=== PATIENT | female | born 1940 ===

== ENCOUNTER → 2020-08-30 09:42 | Outpatient (BNVA) | payer MEDICARE, SELFPAY | PROVIDERS: PCP Internal Medicine; Referring Provider Internal Medicine; Visit Provider Surgery | DX: C34.11 Malignant neoplasm of upper lobe, right bronchus or lung (principal) | CPT/HCPCS: 99211 ==

== ENCOUNTER → 2020-09-02 08:42 | Outpatient (BNV) | payer MEDICARE, SELFPAY | PROVIDERS: PCP Internal Medicine; Visit Provider Internal Medicine | DX: C34.11 Malignant neoplasm of upper lobe, right bronchus or lung (principal) | CPT/HCPCS: 99212; 99213; 99214; G2211 ==

== ENCOUNTER 2020-09-27 14:01 | Inpatient (IN) | payer MEDICARE, SELFPAY ==
--- NOTE | 2020-09-27 10:48 | XR_ITS ---
EXAMINATION: XR CHEST CLINICAL INFORMATION: Malignant neoplasm right upper lobe COMPARISON: Previous chest x-ray most recent 08/09/[address] June 2020 TECHNIQUE: 2 views of the chest were obtained. FINDINGS: The cardiac silhouette does not appear enlarged. There are new postsurgical changes to the right hemithorax. There are surgical gary projecting over the right upper hilar region. There is a moderate to large right pneumothorax. This measures 6.7 cm in greatest thickness at the right lung apex. The lungs are clear. There is no pleural effusion. There are degenerative changes of the spine. XR/XR chest 2V IMPRESSION: New postsurgical changes to the right hemithorax. Moderate to large right pneumothorax measuring 6.7 cm at the right lung apex.
--- NOTE | 2020-09-27 14:13 | P.HPGS_ITS ---
History of Present Illness History of Present Illness Chief complaint: Pneumothorax Post Op Narrative: Elda Vogt is a 80 year old female former smoker, with a PMH of htn, seasonal allergies who underwent a robotic VATS right upper lobectomy and mediastinal lymphadenectomy by Dr. Oh on 09/17/[address] [facility] and was discharged from that facility on 09/19/2020. Ms. Vogt presented to [facility] outpatient thoracic surgical office today with Dr. Oh for her post op appointment and had a cxr performed which showed a small to moderate right apical pneumothorax and had complaints of increased sob. Pt was then directly admitted to the floor with plans to have an IR guided pigtail placed for her right pneumothorax. Review of Systems Review of Systems: Yes all other systems are reviewed and are negative [facility] Past Medical History Medical History History of pneumonia Hypertension Primary cancer of right upper lobe of lung Seasonal allergies Family History Family History Sister Liver transplant recipient Father Stroke Mother Diabetes mellitus Maternal Uncle Lung cancer Surgical History Surgical History H/O tubal ligation History of rectal surgery Social History Social History Household Members: None Housing: Apartment Do you presently have visiting nurse or other home services: No Smoking Status: Former smoker Use of substances other than those prescribed or required for medical reasons: No Have you been hit, kicked, punched, or otherwise hurt by someone within the past year? If so, by whom?: No Do you feel safe in your current relationship?: No Current Relationship Is there a partner from a previous relationship who is making you feel unsafe now?: No Are you made to feel afraid or neglected: No Advance Directives: Yes Advance Directives Information Provided: Yes Advance Directives on File: No Advance Directives Date on File: 09/02/20 Do you have thoughts of harming others: None Do you have a plan to hurt others: No Plan Recently lost weight without trying: Yes Meds Allergies Allergy/AdvReac Type Severity Reaction Status Date / Time amoxicillin [AMOXICILLIN] Allergy Unknown FELT SICK Verified 09/27/20 15:11 moxifloxacin [From AVELOX] Allergy Unknown UNKNOWN Verified 09/27/20 15:11 multiple medication Allergy Unknown Unknown Uncoded 08/30/20 09:51 sensitivit Home Medications Medication Instructions Recorded Confirmed Type amlodipine 10 mg tablet 10 mg PO DAILY 08/30/20 09/27/20 History atenolol 25 mg tablet 25 mg PO DAILY 08/30/20 09/02/20 History cetirizine 10 mg tablet 10 mg PO DAILY 08/30/20 09/27/20 History estradiol g VAGINAL 08/30/20 08/30/20 History polyethylene glycol 3350 17 17 g PO BID PRN 08/30/20 09/27/20 History gram/dose oral powder acetaminophen 325 mg tablet 650 mg PO Q6H 09/27/20 09/27/20 History albuterol sulfate 90 mcg/actuation 0 mcg INHALATION 09/27/20 History aerosol inhaler inhalational spacing device #1 ea 09/27/20 09/27/20 History oxycodone 5 mg tablet 2.5 mg PO Q4H PRN 09/27/20 09/27/20 History Physical Exam Const: Orientation/consciousness: patient oriented x3 HENMT: Head: Yes normal to inspection, Yes normocephalic and Yes atraumatic Eyes: General: appearance normal, both eyes and all related structures Sclerae: sclerae normal Neck: Other: No subcu air Neck: Yes trachea midline Chest: Other: Multiple right sided chest wall incisions remain intact with no sign of infection,erythema or drainage. No subcu air on palpation and breath sounds are clear bilat throughout all lung fermin Cardio: Jugular venous distension: no JVD Rate: regular rate Rhythm: regular rhythm Heart sounds: S1 normal heart sound present, S2 normal heart sound present, no gallops, no murmurs and no rubs GI: Inspection: Yes normal to inspection Palpation (GI): Soft to palpation Auscultation: normoactive bowel sounds Neuro: General: patient oriented x3 Extrem: General: Yes normal to inspection Assessment and Plan (1) Pneumothorax on right: Status: Acute Patient is a 80-year-old female former smoker who recently on 09/17/2020 underwent a robotic VATS right upper lobectomy and 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 Oh at [facility] and was discharged home to self-care on 09/19/2020. Patient presented to thoracic surgery outpatient office at [facility] today and was found to have a small to moderate right-sided pneumothorax. Plan for IR guided right-sided pigtail placement for pneumothorax. Chest tube to remain on -20 L WS. Patient should ambulate out of bed in the hallway a minimum of 3-4 times daily with nursing assistance. (Okay for for chest tube to be on waterseal during ambulation). All meals should be eaten OOB and in chair. Continue current pain analgesics. CXR ordered for tomorrow a.m.
--- NOTE | 2020-09-27 14:39 | CT_ITS ---
PROCEDURE: CT GUIDED INSERTION, PLEURAL TUNNEL CATHETER CLINICAL INFORMATION: Right pneumothorax COMPARISON: Previous chest x-ray from earlier the same day TECHNIQUE: Procedure and risks and benefits including bleeding, infection and inability to the right lung to reinflate discussed with the patient and informed consent was obtained. Axial images through the chest were performed. The right upper anterior chest was prepped and draped in usual sterile fashion. The skin and soft tissues were anesthetized with 1% lidocaine plain. Using CT guidance and a 5 Malaysian Yueh needle, access to the right pleural space was obtained. Over an 0135 guidewire and following serial dilatation, a 10 Malaysian pigtail chest tube was positioned. This was attached to a Pleur-evac. Patient received Versed 1 mg and fentanyl 50 mcg intravenously during the procedure. Total sedation time was 20 minutes. Patient dose 2 92 mgy/cm. This CT examination was performed using dose optimization techniques as appropriate, variously including the following: *Automated exposure control *Adjustment of mA and/or kV according to patient size (this includes techniques or standardized protocols for targeted exams where dose is matched to indication/reason for exam; i.e. extremities or head) *Use of iterative reconstruction technique DLP: 292 mGy-cm FINDINGS: Initial images demonstrate a moderate right apical pneumothorax. There is a small right pleural effusion. There are postsurgical changes from right upper lobe lobectomy with surgical clips seen in the right pulmonary hilum. Images following right chest tube patent and demonstrate slight interval decrease in the right pneumothorax. A small to moderate right apical pneumothorax remains post procedure. CT/CT chest tube placement IMPRESSION: 10.2 Malaysian right chest tube placement.
[2020-09-27 14:49] VITALS: BP 168/60; PULSE 65; RESP 18; TEMP 36.9; O2SAT 96
[2020-09-27 15:43] VITALS: BMI 24.6
[2020-09-27 15:56] LABS: Basophils Absolute Auto 0.1 X10*3/uL (0.0-0.2); Basophils Percent Auto 0.5 % (0-2); Eosinophils Absolute Auto 0.5 X10*3/uL (0.0-0.4); Hematocrit 39.6 % (37-47); Hemoglobin 13.1 g/dl (12.0-16.0); Imm Gran Abs Auto 0.09 X10*3/uL (0.00-0.03); Lymphocytes Absolute Auto 1.4 X10*3/uL (1.2-4.9); MANUAL DIFF FLAG NO; Mean Corpuscular HGB Conc 33.1 g/dl (31.0-35.0); Mean Corpuscular Hemoglobin 31.4 pg (27.0-33.0); Monocytes Absolute Auto 0.8 X10*3/uL (0.1-1.2); Monocytes Percent Auto 8.1 % (2-11); Neutrophils Absolute Auto 6.6 X10*3/uL (2.0-8.3); Neutrophils Percent Auto 70.4 % (45-73); Platelet Count 323 X10*3/uL (160-400); Red Blood Count 4.17 X10*6/uL (4.20-5.50); Red Cell Distribution Width 12.7 % (11.0-16.0); White Blood Count 9.4 X10*3/uL (4.8-10.8)
[2020-09-27] MEDS: Lidocaine HCl 1 % 20 ML VIAL 10 ML SUBCUT (16:58)
[2020-09-27 17:20] VITALS: BP 115/52; PULSE 60; RESP 16; TEMP 36.8; O2SAT 94
[2020-09-27 17:25] VITALS: BP 115/62; PULSE 62
[2020-09-27] MEDS: amLODIPine Besylate 10 MG TABLET PO (17:25)
[2020-09-27] MEDS: 0.9 % Sodium Chloride Flush 3 ML SYRINGE IVFLUSH (17:25)
[2020-09-27] MEDS: Heparin Sodium,Porcine 5,000 UNIT/ML VIAL 5000 UNIT SUBCUT (17:26)
[2020-09-27 17:30] VITALS: BP 142/76; PULSE 61; RESP 16; TEMP 36.4; O2SAT 94
[2020-09-27] MEDS: oxyCODONE HCl Immed Release 5 MG TABLET 2.5 MG PO (17:36)
[2020-09-27 18:32] LABS: Anion Gap 18 (12-20); Blood Urea Nitrogen 11 mg/dL (9-16); Calcium 8.8 mg/dL (8.4-10.2); Carbon Dioxide 22 mmol/L (22-29); Chloride 103 mmol/L (96-108); Creatinine Clr Calc Pharmacy 57.4; Estimated Glomerular Filt Rate > 60; Glucose Random 106 mg/dL (60-115); Potassium 4.5 mmol/l (3.3-5.1); Sodium 138 mmol/L (135-145)
[2020-09-27] MEDS: Acetaminophen 325 MG TABLET 650 MG PO (18:48)
[2020-09-27 19:05] VITALS: BP 165/71; PULSE 61; RESP 20; O2SAT 93
[2020-09-27] MEDS: Sennosides 8.6 MG TABLET 17.2 MG PO (21:08)
[2020-09-27 23:51] VITALS: BP 169/61; PULSE 61; RESP 18; TEMP 36.8; O2SAT 93
[2020-09-28] VITALS (7 sets, daily range): BP systolic 141–159; BP diastolic 54–68; PULSE 57–74; RESP 18–20; TEMP 36.7–37.2; O2SAT 93–96
[2020-09-28] MEDS: 0.9 % Sodium Chloride Flush 3 ML SYRINGE IVFLUSH ×4 (00:30→23:39)
[2020-09-28] MEDS: Acetaminophen 325 MG TABLET 650 MG PO ×3 (03:11→20:44)
[2020-09-28] MEDS: Heparin Sodium,Porcine 5,000 UNIT/ML VIAL 5000 UNIT SUBCUT ×2 (03:12→14:52)
--- NOTE | 2020-09-28 05:00 | XR_ITS ---
EXAMINATION: XR CHEST CLINICAL INFORMATION: Right pneumothorax with chest tube COMPARISON: 09/27/2020 TECHNIQUE: Frontal view of the chest was obtained. FINDINGS: Right-sided pigtail catheter chest tube in place. Suture line seen in the right perihilar region. Cardiac leads overlie the chest. The lungs are well expanded. Reexpansion of the right-sided pneumothorax. Suspect a trace residual right pneumothorax. Small right pleural effusion. No consolidation. The cardiomediastinal silhouette is unchanged, with a calcified aorta. XR/XR chest 1V IMPRESSION: Right-sided pigtail catheter in place with trace residual pneumothorax suspected. Small right pleural effusion.
[2020-09-28 05:07] LABS: MANUAL DIFF FLAG NO
[2020-09-28 05:08] LABS: Basophils Percent Auto 0.5 % (0-2); Eosinophils Absolute Auto 0.5 X10*3/uL (0.0-0.4); Eosinophils Percent Auto 5.6 % (0-4); Hematocrit 33.6 % (37-47); Hemoglobin 11.5 g/dl (12.0-16.0); Imm Gran Abs Auto 0.05 X10*3/uL (0.00-0.03); Imm Gran Pct Auto 0.6 % (0.0-0.4); Lymphocytes Absolute Auto 1.2 X10*3/uL (1.2-4.9); Lymphocytes Percent Auto 14.7 % (20-40); Mean Corpuscular HGB Conc 34.2 g/dl (31.0-35.0); Mean Corpuscular Volume 93.6 fL (80-98); Mean Platelet Volume 9.1 fL (9.4-12.3); Monocytes Absolute Auto 0.8 X10*3/uL (0.1-1.2); Monocytes Percent Auto 9.3 % (2-11); Neutrophils Absolute Auto 5.8 X10*3/uL (2.0-8.3); Neutrophils Percent Auto 69.3 % (45-73); Platelet Count 284 X10*3/uL (160-400); Red Blood Count 3.59 X10*6/uL (4.20-5.50); Red Cell Distribution Width 12.5 % (11.0-16.0); White Blood Count 8.4 X10*3/uL (4.8-10.8)
[2020-09-28 05:35] LABS: Anion Gap 12 (12-20); Blood Urea Nitrogen 12 mg/dL (9-16); Calcium 8.2 mg/dL (8.4-10.2); Carbon Dioxide 25 mmol/L (22-29); Chloride 100 mmol/L (96-108); Creatinine Clr Calc Pharmacy 57.4; Estimated Glomerular Filt Rate > 60; Glucose Random 114 mg/dL (60-115); Magnesium 2.1 mg/dL (1.6-2.6); Phosphorus 3.3 mg/dL (2.7-4.5); Sodium 133 mmol/L (135-145)
[2020-09-28] MEDS: oxyCODONE HCl Immed Release 5 MG TABLET 2.5 MG PO ×2 (08:07→22:28)
[2020-09-28] MEDS: polyethylene glycoL 3350 17 GM POWD.PACK PO ×2 (08:18→20:45)
[2020-09-28] MEDS: Loratadine 10 MG TABLET PO (08:18)
--- NOTE | 2020-09-28 11:35 | MHC.CM.PN ---
[employer]PER[employer]OR [employer]CTION COMPLETED WITH PT WHO REPORTS SHE LIVES ALONE AND IS INDEPENDENT WITH CARE AND MOBILITY. PT REPORTS SHE WAS AT THE [facility] RECENTLY AND HAD A VNA COMING TO HER HOME HOWEVER THEY WERE SUPPOSED TO COME FOR A SECOND VISIT LAST WEDNESDAY AND DID NOT SHOW UP. PT DOES NOT KNOW THE NAME OF THE AGENCY. PT REPORTS SHE GOES TO THE [facility] BUT DOES NOT KNOW THE NAME OF HER PCP. PT STATES SHE COMPLETED A NEW HCP WHILE AT THE [facility] AND DID GIVE A COPY TO HER PCP. PER PT, THE PREVIOUS HCP NAMED HER SON HOWEVER HE LAST WEEK. PT REPORTS HE DAUGHTER IN LAW HAS BEEN TAKING HER TO HER APPTS BECAUSE SHE HAS BEEN ON OXYCODONE AND UNABLE TO DRIVE, SHE WILL ALSO PROVIDE PTS TRANSPORTATION AT DISCHARGE. IMM DELIVERED AND CURRENT DC PLAN IS HOME WITH VNA. PT DOES NOT KNOW WHICH VNA SHE HAD REFINED [facility] OPERATOR, CM WILL ATTEMPT TO FIND OUT HOWEVER PT UNSURE IF SHE WANTS TO CONTINUE WITH THE SAME AGENCY. A LIST WILL BE PROVIDED AND REFERRALS WILL BE MADE BASED ON PTS IDENTIFIED PREFERENCES.
--- NOTE | 2020-09-28 14:13 | PM.PNTS ---
Subjective Subjective Patient reports: no new complaints, tolerating liquids well, tolerating a regular diet and voiding w/o difficulty Interval history: Pt had her right sided pigtail placed by IR yesterday with near resolution of R pneumothorax. Pt states that her breathing has improved since CT insertion. Has been using IS regularly and reaching 500. Has not ambulated in hallway as of yet. Spoke with nursing and emphasized the need to begin ambulation in hallway 3-4 x per day. Also instruction to begin recording chest tube outputs every shift. Pt states that her pain has been well controlled on current analgesics. appetite remains good with proper fluid intake. All other systems reviewed and negative. Physical Exam Vital Signs: Vital Signs: Vital Signs Temp Pulse Resp BP Pulse Ox 09/28/20 11:51 98.0 F 74 18 141/59 H 95 09/28/20 08:00 98.1 F 57 18 148/54 H 93 09/28/20 03:43 98.4 F 62 20 156/64 H 94 09/27/20 23:51 98.3 F 61 18 169/61 H 93 09/27/20 19:05 61 20 165/71 H 93 09/27/20 17:30 97.5 F 61 16 142/76 H 94 09/27/20 17:25 62 115/62 09/27/20 17:20 98.3 F 60 16 115/52 L 94 09/27/20 14:49 98.5 F 65 18 168/60 H 96 Body Mass Index 24.6 Const: General: no acute distress Orientation/consciousness: patient oriented x3 HENMT: Head: Yes normal to inspection Eyes: General: appearance normal, both eyes and all related structures Sclerae: sclerae normal Neck: Other: No crepitis Neck: Yes normal visual inspection, Yes trachea midline and Yes supple Chest: Other: right anterior pigtail catheter remains in place with dressing CDI, 180 cc of serous sanguineous out put over night, no air leak detected, on -20 LWS. BS CTA no wheezes or rhonchi. Surgical incision remain intact with no erythema, edema or drainage Resp: Effort & Inspection: normal respiratory effort and able to speak in complete sentences Cardio: Jugular venous distension: no JVD Rate: regular rate Rhythm: regular rhythm Heart sounds: S1 normal heart sound present, S2 normal heart sound present, no gallops, no murmurs and no rubs GI: Inspection: Yes normal to inspection Auscultation: normal bowel sounds Neuro: General: patient oriented x3 Extrem: General: Yes normal to inspection Progress Note: A&P Assessment and plan (1) Pneumothorax on right: Status: Acute Assessment and Plan: Pneumothorax on right: Status: Acute Patient is a 80-year-old female former smoker who recently on 09/17/2020 underwent a robotic VATS right upper lobectomy and 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 Oh at [facility] and was discharged home to self-care on 09/19/2020. Patient presented to thoracic surgery outpatient office at [facility] on 09/27 and was found to have a small to moderate right-sided pneumothorax S/P right CT guided pigtail catheter on 09/27/2020. Pt should ambulate in hallway with assistance minimum 4 x per day. Chest tube to remain on -20 L WS. CXR obtained this morning shows near complete resolution of R pneumothorax which I personally reviewed and agree with radiologist findings. Patient should ambulate out of bed in the hallway a minimum of 3-4 times daily with nursing assistance. (Okay for for chest tube to be on waterseal during ambulation). All meals should be eaten OOB and in chair. Continue current pain analgesics. CXR ordered for tomorrow a.m. Fall Risk Details Current Medications: Current Medications Generic Name Dose Route Start Last Admin Trade Name Freq PRN Reason Stop Dose Admin Acetaminophen 650 mg 09/27/20 14:39 09/28/20 03:11 Acetaminophen 325 Mg Tablet PO 650 mg Q6H PRN Administration Pain and Fever Amlodipine Besylate 10 mg 09/28/20 14:00 Amlodipine Besylate 10 Mg Tablet PO DAILY@1400 [facility] Protocol Heparin Sodium (Porcine) 5,000 unit 09/27/20 14:39 09/28/20 03:12 Heparin Sodium,Porcine 5,000 Unit/Ml Vial SUBCUT 5,000 unit Q12H MONSERRAT Administration Loratadine 10 mg 09/28/20 09:00 09/28/20 08:18 Loratadine 10 Mg Tablet PO 10 mg DAILY MONSERRAT Administration Oxycodone HCl 2.5 mg 09/27/20 15:28 09/28/20 08:07 Oxycodone Hcl Immed Release 5 Mg Tablet PO 2.5 mg Q4H PRN Administration Pain, Moderate (Pain Scale 4-6 Oxycodone HCl 5 mg 09/27/20 15:28 Oxycodone Hcl Immed Release 5 Mg Tablet PO Q4H PRN Pain, Severe (Pain Scale 7-10) Polyethylene Glycol 17 gm 09/27/20 15:47 09/28/20 08:18 Polyethylene Glycol 3350 17 Gm Powd.Pack PO 17 gm BID PRN Administration constipation Senna 17.2 mg 09/27/20 21:00 09/27/20 21:08 Sennosides 8.6 Mg Tablet PO 17.2 mg BEDTIME MONSERRAT Administration Sodium Chloride 3 ml 09/27/20 16:00 09/28/20 08:08 0.9 % Sodium Chloride Flush 3 Ml Syringe IVFLUSH 3 ml QSHIFT MONSERRAT Administration Time Spent With Patient Time: Total time spent is greater than 50% in coordination of care (as documented) at patient's floor/unit and/or counseling patient: Time with patient: 15 - 24 minutes
[2020-09-28] MEDS: amLODIPine Besylate 10 MG TABLET PO (14:52)
[2020-09-29] VITALS (7 sets, daily range): BP systolic 140–176; BP diastolic 60–79; PULSE 53–77; RESP 18; TEMP 36.1–37.1; O2SAT 92–95
--- NOTE | 2020-09-29 | XR_ITS ---
EXAMINATION: XR CHEST CLINICAL INFORMATION: Right-sided pneumothorax with chest tube COMPARISON: 09/28/2020 TECHNIQUE: Portable AP upright view of the chest was obtained. FINDINGS: Right pigtail catheter overlies the right apex. Chain staple lines are seen in the right hilar and upper lung region. A pneumothorax is not visualized at this time. There are trace bilateral pleural effusions seen with mild tenting of the right hemidiaphragm. The heart is not enlarged. XR/XR chest 1V IMPRESSION: No change in the right pigtail catheter. The right-sided pneumothorax is no longer visible. The lungs are otherwise clear with small bilateral pleural effusions.
[2020-09-29] MEDS: Heparin Sodium,Porcine 5,000 UNIT/ML VIAL 5000 UNIT SUBCUT ×2 (02:14→14:27)
[2020-09-29] MEDS: Acetaminophen 325 MG TABLET 650 MG PO ×3 (06:40→23:42)
[2020-09-29] MEDS: Loratadine 10 MG TABLET PO (07:47)
[2020-09-29] MEDS: 0.9 % Sodium Chloride Flush 3 ML SYRINGE IVFLUSH ×3 (07:47→21:20)
[2020-09-29] MEDS: polyethylene glycoL 3350 17 GM POWD.PACK PO (07:52)
--- NOTE | 2020-09-29 14:07 | P.PNTS_ITS ---
Subjective Subjective Interval history: patients overnight was uneventful, right sided chest tube remains on -20 LWS, has been ambulating in hallway with nursing assistance, 750 with IS, no sob, cough , hemptysis or wheezing. Appetite remains good with no issues voiding and regular BM. Denies F/C, N/V, weakness or pain. All of ROS neg Physical Exam Vital Signs: Vital Signs: Vital Signs Temp Pulse Resp BP Pulse Ox 09/29/20 13:46 70 152/60 H 09/29/20 11:50 98.0 F 64 18 171/63 H 94 09/29/20 08:00 97.0 F 63 18 176/79 H 94 09/29/20 04:00 98.6 F 53 18 156/74 H 94 09/28/20 22:56 98.9 F 57 18 148/58 H 93 09/28/20 19:46 98.5 F 66 18 151/55 H 95 09/28/20 15:51 98.9 F 62 18 159/56 H 96 Body Mass Index 24.6 Const: General: comfortable and no acute distress Orientation/consciousness: patient oriented x3 HENMT: Head: Yes normal to inspection and Yes normocephalic Eyes: General: appearance normal, both eyes and all related structures Sclerae: sclerae normal Neck: Other: No subcu air Neck: Yes normal visual inspection and Yes trachea midline Chest: Other: Right sided pigtail catheter remains in place and secure with dressing CDI anterior chest wall with no sign of subc emphysema, BS CTA bilat, no wheezes or rhonchi, chest tube remains on -20 LWS with minimal serous sanguineous fluid output over night, still has 180 cc total, no air leak noted, surgical incision healing well with no dihisence, erythem or edema. Cardio: Jugular venous distension: no JVD Rhythm: regular rhythm and abnormal rhythm Heart sounds: S1 normal heart sound present, S2 normal heart sound present, no gallops, no murmurs and no rubs GI: Inspection: Yes normal to inspection Auscultation: normal bowel sounds Neuro: General: patient oriented x3 Extrem: General: Yes normal to inspection, Yes capillary refill normal and Yes no clubbing, cyanosis or edema Right upper extremity: normal to inspection Left upper extremity: normal to inspection Right lower extremity: normal to inspection Left lower extremity: normal to inspection Progress Note: A&P Assessment and plan (1) Pneumothorax on right: Status: Acute Assessment and Plan: Pneumothorax on right: Status: Acute Patient is a 80-year-old female former smoker who recently on 09/17/2020 underwent a robotic VATS right upper lobectomy and 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 Oh at [facility] and was discharged home to self-care on 09/19/2020. [facility] on 09/27 and was found to have a small to moderate right-sided pneumothorax S/P right CT guided pigtail catheter on 09/27/2020. Pt should ambulate in hallway with assistance minimum 4 x per day. Chest tube to remain on -20 L WS. CXR obtained this morning shows complete resolution of R pneumothorax which I personally reviewed and agree with radiologist findings. Patient should ambulate out of bed in the hallway a minimum of 3-4 times daily with nursing assistance. (Okay for for chest tube to be on waterseal during ambulation). All meals should be eaten OOB and in chair. Continue current pain analgesics. CXR ordered for tomorrow a.m. Fall Risk Details Current Medications: Current Medications Generic Name Dose Route Start Last Admin Trade Name Freq PRN Reason Stop Dose Admin Acetaminophen 650 mg 09/27/20 14:39 09/29/20 06:40 Acetaminophen 325 Mg Tablet PO 650 mg Q6H PRN Administration Pain and Fever Amlodipine Besylate 10 mg 09/28/20 14:00 09/28/20 14:52 Amlodipine Besylate 10 Mg Tablet PO 10 mg DAILY@1400 MONSERRAT Administration Protocol Heparin Sodium (Porcine) 5,000 unit 09/27/20 14:39 09/29/20 02:14 Heparin Sodium,Porcine 5,000 Unit/Ml Vial SUBCUT 5,000 unit Q12H MONSERRAT Administration Loratadine 10 mg 09/28/20 09:00 09/29/20 07:47 Loratadine 10 Mg Tablet PO 10 mg DAILY MONSERRAT Administration Oxycodone HCl 2.5 mg 09/27/20 15:28 09/28/20 22:28 Oxycodone Hcl Immed Release 5 Mg Tablet PO 2.5 mg Q4H PRN Administration Pain, Moderate (Pain Scale 4-6 Oxycodone HCl 5 mg 09/27/20 15:28 Oxycodone Hcl Immed Release 5 Mg Tablet PO Q4H PRN Pain, Severe (Pain Scale 7-10) Polyethylene Glycol 17 gm 09/27/20 15:47 09/29/20 07:52 Polyethylene Glycol 3350 17 Gm Powd.Pack PO 17 gm BID PRN Administration constipation Senna 17.2 mg 09/27/20 21:00 09/28/20 20:47 Sennosides 8.6 Mg Tablet PO Not Given BEDTIME MONSERRAT Sodium Chloride 3 ml 09/27/20 16:00 09/29/20 07:47 0.9 % Sodium Chloride Flush 3 Ml Syringe IVFLUSH 3 ml QSHIFT MONSERRAT Administration Time Spent With Patient Time: Total time spent is greater than 50% in coordination of care (as documented) at patient's floor/unit and/or counseling patient: Time with patient: 15 - 24 minutes
[2020-09-29] MEDS: amLODIPine Besylate 10 MG TABLET PO (14:28)
--- NOTE | 2020-09-29 16:37 | MHC.CM.PN ---
CM CONTACTED [facility] AND CONFIRMED THIS IS THE AGENCY PT WAS ACTIVE WITH [employer]. CM MET WITH PT AGAIN TO DISCUSS HER PREFERENCE. AFTER SOME DISCUSSION PT REPORTED SHE WOULD LIKE TO CONTINUE WITH THE SAME AGENCY BUT REQUESTS THAT THEY TELL HER WHAT DAY THEY WILL BE COMING SO SHE IS PREPARED. CURRENT DC PLAN IS HOME [facility] RESUMPTION OF [facility] VNA
[2020-09-30] VITALS (9 sets, daily range): BP systolic 134–163; BP diastolic 45–76; PULSE 58–78; RESP 16–20; TEMP 36.4–36.9; O2SAT 91–94
[2020-09-30] MEDS: oxyCODONE HCl Immed Release 5 MG TABLET 2.5 MG PO ×2 (03:14→19:32)
[2020-09-30] MEDS: Heparin Sodium,Porcine 5,000 UNIT/ML VIAL 5000 UNIT SUBCUT ×2 (03:15→13:35)
--- NOTE | 2020-09-30 05:00 | XR_ITS ---
EXAMINATION: XR CHEST CLINICAL INFORMATION: Right pneumothorax with chest tube COMPARISON: 09/29/2020 TECHNIQUE: Frontal view of the chest was obtained. FINDINGS: Right-sided chest tube remains in place. Suture line at the right suprahilar region. Cardiac leads overlie the chest. Tenting of the right hemidiaphragm again noted. The lungs are well expanded. No consolidation, edema, or effusion. There is no pneumothorax visualized. The cardiomediastinal silhouette is unchanged, with a calcified aorta. XR/XR chest 1V IMPRESSION: Right-sided chest tube remains in place. There is no pneumothorax visualized.
[2020-09-30] MEDS: Acetaminophen 325 MG TABLET 650 MG PO ×3 (07:52→23:47)
[2020-09-30] MEDS: Loratadine 10 MG TABLET PO (07:53)
[2020-09-30] MEDS: 0.9 % Sodium Chloride Flush 3 ML SYRINGE IVFLUSH ×3 (10:15→23:49)
[2020-09-30] MEDS: polyethylene glycoL 3350 17 GM POWD.PACK PO (10:17)
--- NOTE | 2020-09-30 12:30 | MHC.CM.PN ---
per multi dis rounds dc date not determined at this time dc plan remanins home with resumption of anthony vna
[2020-09-30] MEDS: amLODIPine Besylate 10 MG TABLET PO (13:39)
--- NOTE | 2020-09-30 16:04 | P.PNTS_ITS ---
Subjective Subjective Interval history: Patient seen and examined this evening. Doing well overall. Using I/S as instructed and ambulating in room. Chest tube remains to -20cm continuous LWS. Reports chest discomfort to right chest at site of chest tube. Otherwise, doing well overall. Physical Exam Vital Signs: Vital Signs: Vital Signs Temp Pulse Resp BP Pulse Ox 09/30/20 15:19 98.0 F 66 18 143/73 H 93 09/30/20 14:35 16 09/30/20 13:39 78 144/54 H 09/30/20 12:00 98.3 F 78 20 144/54 H 94 09/30/20 07:58 98.1 F 64 20 156/63 H 92 09/30/20 03:05 97.6 F 61 18 163/76 H 92 09/30/20 00:00 98.5 F 62 18 154/51 H 92 09/29/20 20:04 98.7 F 66 18 140/60 H 92 Body Mass Index 24.6 Const: General: cooperative, healthy appearing, comfortable and no acute distress Nutritional Appearance: well nourished Orientation/consciousness: oriented to person, oriented to place, oriented to time and patient oriented x3 Limitations: no limitations HENMT: Head: Yes normal to inspection, Yes normocephalic and Yes atraumatic Mouth: Normal oral and palatal mucosa present Eyes: Visual Fermin: normal visual fermin by confrontation Alignment and Position: alignment normal Periorbital: periorbital findings normal Conjunctivae: conjunctivae normal Sclerae: sclerae normal Pupils: Equal, round and reactive pupils present and Pupil accommodation reflex normal EOM: EOMs intact bilaterally Neck: Neck: Yes normal visual inspection, Yes full ROM, Yes no lymphadenopathy, Yes trachea midline, Yes supple, No lymphadenopathy, No tender and No tracheal deviation Lymphatic: no lymphadenopathy noted Chest: Chest palpation & inspection: normal inspection of the chest and no crepitus Resp: Other: Chest tube to -20cm continuous LWS. 300cc of serousanguinous drainage in atrium. No visible air leak. Chest tube dressing is C/D/I. tubing kinked, nursing will re-inforce with tape to ensure chest tube draining properly. Multiple surgical chest wall incisions healing well without erythema, edema, or drainage. Effort & Inspection: normal respiratory effort, able to speak in complete sentences, normal respiratory pattern, no audible wheezes, no cough, no pursed lip breathing, no respiratory distress, no stridor, not tachypneic, no tracheal deviation and other Auscultation: clear to auscultation bilaterally Cardio: Jugular venous distension: no JVD Palpation: normal PMI Rate: regular rate Rhythm: regular rhythm Heart sounds: S1 normal heart sound present, S2 normal heart sound present, no click, no gallops, no murmurs and no rubs GI: Inspection: Yes normal to inspection Auscultation: normal bowel sounds : General: Yes no CVA tenderness Back/Spine/Pelvis: Back: no CVA tenderness Thoracic/Lumbar Spine: thoracic and lumbar spine normal to inspection Skin: General skin exam: no rashes or lesions noted and dry skin Lesions: no lesions Rashes: no rashes Neuro: General: oriented to person, oriented to place, oriented to time, patient oriented x3 and gait normal Cranial nerves: Yes Equal, round and reactive pupils present Extrem: General: Yes normal to inspection, Yes full ROM, Yes capillary refill normal, Yes no clubbing, cyanosis or edema, Yes no pedal edema and Yes normal gait Psych: Appearance: grossly normal and well kempt Mental Status: mental sta tus grossly normal Speech and movement: Normal speech and movement present and Clear speech present Affect: normal affect Attitude: cooperative Thought process: Normal thought process present Thought content: Normal thought content present Progress Note: A&P Assessment and plan (1) Pneumothorax on right: Status: Acute Assessment and Plan: Patient is a 80-year-old female former smoker who is s/p robotic VATS RUL 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 Oh. * IR pigtail chest tube placed on 09/27/2020 following findings of right-sided pneumothorax * Pt should ambulate in hallway with assistance minimum 4 x per day. OOB in recliner chair with all meals. * Keep chest tube to -20cm continuous LWS and place to [facility] at midnight 10/01/2020 0000. * CXR obtained this morning shows: Right-sided chest tube remains in place. There is no pneumothorax visualized. * No air leak on exam. * Patient should ambulate out of bed in the hallway a minimum of 3-4 times daily with nursing assistance. (Okay for for chest tube to be on waterseal during ambulation). * Continue current pain analgesics. * CXR ordered for tomorrow a.m. If CXR looks good following waterseal at midnight, will most likely remove and d/c tomorrow. * DVT prophylaxis: Heparin SQ Fall Risk Details Current Medications: Current Medications Generic Name Dose Route Start Last Admin Trade Name Freq PRN Reason Stop Dose Admin Acetaminophen 650 mg 09/27/20 14:39 09/30/20 13:38 Acetaminophen 325 Mg Tablet PO 650 mg Q6H PRN Administration Pain and Fever Amlodipine Besylate 10 mg 09/28/20 14:00 09/30/20 13:39 Amlodipine Besylate 10 Mg Tablet PO 10 mg DAILY@1400 MONSERRAT Administration Protocol Heparin Sodium (Porcine) 5,000 unit 09/27/20 14:39 09/30/20 13:35 Heparin Sodium,Porcine 5,000 Unit/Ml Vial SUBCUT 5,000 unit Q12H MONSERRAT Administration Loratadine 10 mg 09/28/20 09:00 09/30/20 07:53 Loratadine 10 Mg Tablet PO 10 mg DAILY MONSERRAT Administration Oxycodone HCl 2.5 mg 09/27/20 15:28 09/30/20 03:14 Oxycodone Hcl Immed Release 5 Mg Tablet PO 2.5 mg Q4H PRN Administration Pain, Moderate (Pain Scale 4-6 Oxycodone HCl 5 mg 09/27/20 15:28 Oxycodone Hcl Immed Release 5 Mg Tablet PO Q4H PRN Pain, Severe (Pain Scale 7-10) Polyethylene Glycol 17 gm 09/27/20 15:47 09/30/20 10:17 Polyethylene Glycol 3350 17 Gm Powd.Pack PO 17 gm BID PRN Administration constipation Senna 17.2 mg 09/27/20 21:00 09/29/20 21:20 Sennosides 8.6 Mg Tablet PO Not Given BEDTIME MONSERRAT Sodium Chloride 3 ml 09/27/20 16:00 09/30/20 13:35 0.9 % Sodium Chloride Flush 3 Ml Syringe IVFLUSH 3 ml QSHIFT MONSERRAT Administration Time Spent With Patient Time: Total time spent is greater than 50% in coordination of care (as documented) at patient's floor/unit and/or counseling patient: Time with patient: 15 - 24 minutes
[2020-10-01 03:54] VITALS: BP 152/52; RESP 18; TEMP 36.8; O2SAT 95
[2020-10-01] MEDS: Heparin Sodium,Porcine 5,000 UNIT/ML VIAL 5000 UNIT SUBCUT ×2 (03:57→13:01)
--- NOTE | 2020-10-01 06:00 | XR_ITS ---
EXAMINATION: XR CHEST CLINICAL INFORMATION: Right-sided pneumothorax. Status post chest tube placement. COMPARISON: Most recent chest radiograph dated 09/30/2020. TECHNIQUE: Frontal view of the chest was obtained. FINDINGS: Redemonstration of a right chest pigtail catheter with its tip in the region of the upper lobe. No significant change in positioning. No new or increasing pneumothorax. Trace right-sided pleural effusion, unchanged. Tenting of the right hemidiaphragm is unchanged. No new airspace consolidation. Stable cardiomediastinal silhouette. XR/XR chest 1V IMPRESSION: Stable right-sided chest tube and trace right-sided pleural effusion. No pneumothorax.
[2020-10-01] MEDS: Acetaminophen 325 MG TABLET 650 MG PO ×2 (06:19→13:01)
[2020-10-01 07:43] VITALS: RESP 18
[2020-10-01 07:49] VITALS: BP 157/59; PULSE 68; RESP 18; TEMP 36.7; O2SAT 96
[2020-10-01] MEDS: 0.9 % Sodium Chloride Flush 3 ML SYRINGE IVFLUSH ×2 (07:53→13:02)
[2020-10-01] MEDS: Loratadine 10 MG TABLET PO (07:54)
[2020-10-01] MEDS: polyethylene glycoL 3350 17 GM POWD.PACK PO (09:31)
[2020-10-01 11:32] VITALS: BP 165/59; PULSE 70; RESP 18; TEMP 36.6; O2SAT 98
[2020-10-01 13:01] VITALS: BP 165/59; PULSE 70
[2020-10-01] MEDS: amLODIPine Besylate 10 MG TABLET PO (13:01)
--- NOTE | 2020-10-01 13:30 | XR_ITS ---
EXAMINATION: XR CHEST CLINICAL INFORMATION: Right pneumothorax post pigtail chest tube placement COMPARISON: Previous chest x-rays most recent from earlier the same day TECHNIQUE: Frontal view of the chest was obtained. FINDINGS: The cardiac and mediastinal contours are stable. There are postsurgical changes to the right hemithorax with surgical clips in the right suprahilar region and elevation of the right hemidiaphragm. There is a right pigtail chest tube projecting over the right upper chest. There is no pneumothorax. There is blunting at the right lateral costophrenic angle questionable for small right pleural effusion. The lungs are clear. There is no left pleural effusion. There are degenerative changes of the spine. XR/XR chest 1V IMPRESSION: Stable postsurgical change to the right hemithorax. Stable position of right pigtail chest tube. No pneumothorax. Probable small right pleural effusion.
[2020-10-01 15:21] VITALS: BP 129/58; PULSE 67; RESP 18; TEMP 36.6; O2SAT 97
--- NOTE | 2020-10-01 17:41 | P.DS_ITS ---
DS: Providers Provider Date of admission: 09/27/20 14:01 Primary care physician: Douglas Swift MD Attending physician on admission: Sheila Oh Attending physician on discharge: Sheila Oh Anticipated date of discharge: 10/01/20 DS: Diagnosis Discharge Diagnosis (1) Pneumothorax on right: Status: Resolved DS: Summary Hospital Course Hospital Course: Per admission H&P: Elda Vogt is a 80 year old female former smoker, with a PMH of htn, seasonal allergies who underwent a robotic VATS right upper lobectomy and mediastinal lymphadenectomy by Dr. Oh on 09/17/2020 at [facility] and was discharged from that facility on 09/19/2020. Ms. Vogt presented to [facility] outpatient thoracic surgical office today with Dr. Oh for her post op appointment and had a cxr performed which showed a small to moderate right apical pneumothorax and had complaints of increased sob. Pt was then directly admitted to the floor with plans to have an IR guided pigtail placed for her right pneumothorax. Ms. Vogt was admitted to the Thoracic Surgery service and an IR guided pigtail was placed for the right pneumothorax on 09/27/2020. The patient's chest tube was gradually changed from wall suction to water seal to eventually a clamping trial on date of discharge. Patient had no increased SQ emphysema, pneumothorax, or respiratory compromise during clamping trial, therefore right sided chest tube was removed. This was done without difficulty and an occlusive dressing was placed over the site. The patient has otherwise had an uneventful hospital stay. She has been tolerating an oral diet, voiding, ambulating, pain controlled. She has been hemodynamically stable. After discussion with Dr. Oh it is deemed appropriate for the patient to be discharged home with VNA. Time Spent with Patient Time attestation: Total time spent providing and/or coordinating discharge services: Time spent: Less than 30 minutes Physical Exam Vital Signs: Vital Signs: Vital Signs Temp Pulse Resp BP Pulse Ox 10/01/20 15:21 97.9 F 67 18 129/58 L 97 10/01/20 13:01 70 165/59 H 10/01/20 11:32 97.9 F 70 18 165/59 H 98 10/01/20 07:49 98.0 F 68 18 157/59 H 96 10/01/20 07:43 18 10/01/20 03:54 98.2 F 18 152/52 H 95 09/30/20 23:35 97.9 F 58 18 134/45 L 91 L 09/30/20 19:09 98.5 F 68 18 147/52 H 92 Body Mass Index 24.6 General: No acute distress, resting comfortably in bed, well developed Head: Normocephalic, atraumatic, symmetric Eyes: Sclera anicteric, eyelids *without edema or erythema, +EOMS intact ENT: Oral mucosa and tongue are moist without lesions or exudates Neck: Soft, supple, symmetric, trachea midline, no crepitus Cardiovascular: Regular rate and rhythm, no murmur/rubs/gallops, BUE and BLE without edema, no calf tenderness bilaterally Respiratory: Lungs CTA B, breathing nonlabored, speaking in full sentences, on room air. No use of accessory muscles. Multiple right sided chest incisions are C/D/I, healing well, without erythema/drainage/open areas, no crepitus. Right anterior chest tube removed, occlusive dressing in place, C/D/I. Gastrointestinal: Soft, non-tender, non-distended, +normoactive bowel sounds. Lymphatic: no cervical, supraclavicular, infraclavicular lymphadenopathy noted Neurological: Alert and oriented x 3, no focal neurological deficit noted Psychiatric: Alert and oriented x 3, no agitation, appropriate affect DS: Data Imaging Chest x-ray: Radiologist's impression: XRay Report Signed Patient: Sravanthi Vogt#: [id number] : 2Acct:[id number] Age/Sex: 80 / FADM Date: 09/27/20 Loc: .[id number]: Sheila Oh MD Ordering Physician: JULIAN YEAGER NP Date of Service: 10/01/20 Procedure(s): XR chest 1V Accession Number(s): [id number] cc: JULIAN YEAGER NP~ EXAMINATION: XR CHEST CLINICAL INFORMATION: Right pneumothorax post pigtail chest tube placement COMPARISON: Previous chest x-rays most recent from earlier the same day TECHNIQUE: Frontal view of the chest was obtained. FINDINGS: The cardiac and mediastinal contours are stable. There are postsurgical changes to the right hemithorax with surgical clips in the right suprahilar region and elevation of the right hemidiaphragm. There is a right pigtail chest tube projecting over the right upper chest. There is no pneumothorax. There is blunting at the right lateral costophrenic angle questionable for small right pleural effusion. The lungs are clear. There is no left pleural effusion. There are degenerative changes of the spine. XR/XR chest 1V IMPRESSION: Stable postsurgical change to the right hemithorax. Stable position of right pigtail chest tube. No pneumothorax. Probable small right pleural effusion. Discharge Plan Discharge Anticipated Discharge Date/Time: 10/01/20 17:34 Patient Disposition: Home Health Service Referrals: Douglas Swift MD [Primary Care Provider] - Discharge Medications: Continued amlodipine 10 mg tablet 10 mg PO DAILY RF: 0 polyethylene glycol 3350 17 gram/dose powder 17 g PO BID PRN (Reason: constipation) RF: 0 cetirizine 10 mg tablet 10 mg PO DAILY RF: 0 estradiol 0.01 % (0.1 mg/gram) cream vaginal RF: 0 atenolol 25 mg tablet 25 mg PO DAILY RF: 0 Discharge Orders: Discharge Order (Routine); Ordered 10/01/20 Ordered By: Deana Gore Diet: advance to your usual diet Activity on Discharge: As tolerated Activity Restrictions/Additional Instructions: ACTIVITY: * You should be out of bed and walking at least 3x per day. * No lifting anything heavier than 10lb x 2 weeks (ie, gallon of milk). * Continue to use the incentive spirometer at least 10x per day to aide with keeping the lungs expanded. INCISION CARE: * You may remove the dressing on the right chest where the chest tube was removed on , 10/03/20. Once the dressing is removed you may leave this area open to air and you may shower. Sponge bathe only until dressing is removed. * Keep all incisions clean and dry. * Gently wash incisions with soap and water. No scrubbing the areas. * No tub baths, swimming, etc. for the next 2-4 weeks. MEDICATION INSTRUCTIONS: * Take all medications as directed. * No driving when taking narcotic pain medication. * You should be taking a stool softener when taking narcotic pain medications in order to prevent severe constipation. WHAT TO WATCH FOR: * Monitor all incisions for increased redness, swelling, open areas, or drainage. * Monitor for increased air under the skin around the incisions or chest (feels like Rice Krispy cereal when touched). * Monitor for fever, chills, shortness of breath, chest pain, severe abdominal pain, persistent nausea/vomiting, severe changes in bowel or bladder habits. SMOKING CESSATION: * Smoking is hazardous to your health and those around you. * Continuing to smoke or use tobacco products can increase your chance of postoperative complications, including delayed wound healing, wound infection, stroke, and heart attack. * If you currently use tobacco products (cigarettes, dip, cigars, electronic/vapor cigarettes, etc) talk with your provider about options that are available to help you quit. * You can call the [facility] Smokers' Helpline at 5-651-Traetelo.com NOW ( ). For E[place], call 4-270-1-DUYEdCaliberROLAND ( ). You can also visit the website at [email or web address]. FOLLOWUP APPOINTMENTS: * Call the thoracic surgery office tomorrow morning to schedule a followup appointment for 2 weeks. * Call the thoracic surgery office @ [phone] if you have any questions or concerns. *[facility] thoracic office: [phone]. Visit Report Forms: Patient Portal Discharge page Care Plan Goals: As above Health Concerns: Lung cancer Plan of Treatment: As above
--- NOTE | 2020-10-02 09:52 | MHC.CM.PN ---
anthony ruiz notified of pts dc 10/01 c summary sent
== END 2020-10-01 18:42 | disposition home health service (06) | DRG 167 ==
LOC: HO.IMC 14:05
PROVIDERS: Physician Assistant; Radiology Diagnostic Radiology; Admitting Provider Surgery; PCP Internal Medicine; Visit Provider Surgery
DX: J95.811 Postprocedural pneumothorax (principal); C34.11 Malignant neoplasm of upper lobe, right bronchus or lung; Z87.891 Personal history of nicotine dependence; Z79.891 Long term (current) use of opiate analgesic; Z79.899 Other long term (current) drug therapy
CPT/HCPCS: 32551; 36415; 71045; 71046; 80048; 83735; 84100; 85025; 85610; 99152; 99232; C1729; Q4186

== ENCOUNTER → 2020-10-18 08:46 | Outpatient (BNVA) | payer MEDICARE, SELFPAY | PROVIDERS: PCP Internal Medicine; Visit Provider Surgery | DX: Z48.3 Aftercare following surgery for neoplasm (principal); C34.11 Malignant neoplasm of upper lobe, right bronchus or lung | CPT/HCPCS: 99212 ==

== ENCOUNTER 2020-11-02 09:48 | Emergency (ER) | payer MEDICARE, SELFPAY ==
[2020-11-02 10:00] VITALS: BP 150/72; PULSE 79; RESP 14; TEMP 36.4; O2SAT 97; BMI 25.7
[2020-11-02] MEDS: Oxymetazoline HCl 0.05 % Nasal 15 ML SPRAY 2 SPRAY NOSTRIL-B (10:48)
[2020-11-02 11:02] LABS: MANUAL DIFF FLAG NO
[2020-11-02 11:04] LABS: Basophils Percent Auto 0.6 % (0-2); Eosinophils Absolute Auto 0.2 X10*3/uL (0.0-0.4); Eosinophils Percent Auto 2.8 % (0-4); Hematocrit 38.5 % (37-47); Hemoglobin 12.8 g/dl (12.0-16.0); Imm Gran Abs Auto 0.01 X10*3/uL (0.00-0.03); Imm Gran Pct Auto 0.2 % (0.0-0.4); Lymphocytes Absolute Auto 1.4 X10*3/uL (1.2-4.9); Lymphocytes Percent Auto 22.1 % (20-40); Mean Corpuscular HGB Conc 33.2 g/dl (31.0-35.0); Mean Corpuscular Hemoglobin 31.1 pg (27.0-33.0); Mean Corpuscular Volume 93.4 fL (80-98); Mean Platelet Volume 9.4 fL (9.4-12.3); Monocytes Absolute Auto 0.6 X10*3/uL (0.1-1.2); Monocytes Percent Auto 8.9 % (2-11); Neutrophils Percent Auto 65.4 % (45-73); Platelet Count 236 X10*3/uL (160-400); Red Blood Count 4.12 X10*6/uL (4.20-5.50); Red Cell Distribution Width 11.9 % (11.0-16.0); White Blood Count 6.2 X10*3/uL (4.8-10.8)
[2020-11-02 11:16] LABS: Prothrombin Time 11.9 SEC (10.8-13.0)
[2020-11-02 11:24] LABS: Anion Gap 14 (12-20); Blood Urea Nitrogen 10 mg/dL (9-16); Calcium 9.6 mg/dL (8.4-10.2); Carbon Dioxide 26 mmol/L (22-29); Chloride 100 mmol/L (96-108); Estimated Glomerular Filt Rate > 60; Glucose Random 102 mg/dL (60-115); Potassium 4.3 mmol/l (3.3-5.1); Sodium 136 mmol/L (135-145)
--- NOTE | 2020-11-02 12:04 | ED.EPISTAXIS ---
History of Present Illness General Chief Complaint: Epistaxis Stated Complaint: NOSE BLEED Time Seen by Provider: 11/02/20 10:30 Source: patient Mode of arrival: ambulatory Limitations: no limitations History of Present Illness HPI Narrative: 80yoF c PMHx primary cancer of right upper lobe of lung and hypertension presenting to the ED with complaints of epistaxis 2 right Nare just prior to arrival with clots for approximately 45 minutes although resolved when she got here to the emergency department. Denies previous history of nose bleeds. Denies hereditary bleeding disorder. Denies digital trauma/warfarin usage or any other anticoagulation usage, recent surgery, trauma, recent or current URI, facial injury, intranasal steroid usage or nasal allergies. Denies any other symptom complaints or concerns at this time. Related Data Home Medications Medication Instructions Recorded Confirmed amlodipine 10 mg tablet 10 mg PO DAILY 08/30/20 10/18/20 atenolol 25 mg tablet 25 mg PO DAILY 08/30/20 10/18/20 cetirizine 10 mg tablet 10 mg PO DAILY 08/30/20 10/18/20 estradiol g VAGINAL 08/30/20 10/18/20 polyethylene glycol 3350 17 17 g PO BID PRN 08/30/20 10/18/20 gram/dose oral powder acetaminophen 325 mg tablet 650 mg PO Q6H 09/27/20 10/18/20 albuterol sulfate 90 mcg/actuation 0 mcg INHALATION 09/27/20 10/18/20 aerosol inhaler inhalational spacing device #1 ea 09/27/20 10/18/20 loratadine 10 mg tablet 10 mg PO DAILY 10/18/20 10/18/20 Allergies Allergy/AdvReac Type Severity Reaction Status Date / Time amoxicillin [AMOXICILLIN] Allergy Unknown FELT SICK Verified 09/27/20 15:11 moxifloxacin [From AVELOX] Allergy Unknown UNKNOWN Verified 09/27/20 15:11 multiple medication Allergy Unknown Unknown Uncoded 08/30/20 09:51 sensitivit Review of Systems Review of Systems: Constitutional : No Fever, No Chills ENT/Mouth : No Ear Pain, No Nasal Congestion, positive nose bleed Eyes: No Eye Pain, No Swelling, No Redness Cardiovascular : No Chest Pain, No SOB Respiratory : No Cough, No Sputum Gastrointestinal : No Nausea, No Vomiting, No Diarrhea Genitourinary : No Dysuria, No Hematuria Musculoskeletal : No joint pain, No Myalgias Skin : No Skin Lesions, No rash Neuro : No Weakness, No Numbness, No headache Psych : No Anxiety/Panic, No Depression Heme/Lymph: No Bleeding,No Lymphadenopathy Endocrine : No Polyuria, No Polydipsia Yes all other systems are reviewed and are negative [facility] Past Medical History Attestation statement: The following information was validated with the patient. Medical History History of pneumonia Hypertension Primary cancer of right upper lobe of lung Seasonal allergies Surgical History H/O tubal ligation History of rectal surgery Family History Family History Sister Liver transplant recipient Father Stroke Mother Diabetes mellitus Maternal Uncle Lung cancer Social History Social History Household Members: None Housing: Apartment Smoking Status: Former smoker Advance Directives: Yes Advance Directives on File: Yes Advance Directives Date on File: 09/02/20 Physical Exam Vital Signs: Vital Signs: Last Vital Signs Temp 97.5 F 11/02/20 10:00 Pulse 79 11/02/20 10:00 Resp 14 11/02/20 10:00 BP 150/72 H 11/02/20 10:00 Pulse Ox 97 11/02/20 10:00 Body Mass Index 25.7 vital signs have been reviewed as normal and appeared to be correct. Blood pressure normal. Heart rate normal. Respiration rate normal. Temperature normal. Oxygen saturation normal. Appearance: Alert. Oriented X3. No acute distress. Head: Normal external exam. Normocephalic. Atraumatic. No Sood signs noted. No raccoon eyes noted Eyes: PERRLA. EOMI. Conjunctiva and sclera normal. Eyelids normal. ENT: Dried blood noted to bilateral nares. No active bleeding. No septal hematoma noted. No obvious injury/abrasions/lacerations noted. Pharynx normal. Uvula midline. Moist mucous membranes. No trismus noted. No drooling noted. No muffled voice noted. Neck: Normal inspection. Neck supple. FROM. No adenopathy. No meningeal signs. CVS: Normal heart rate and rhythm. Heart sound normal. No murmurs noted. Pulses normal throughout. Respiratory: No respiratory distress. Painless inspiration. Breath sounds normal. No wheezes/rales/rhonchi noted. Chest nontender. No accessory muscle usage noted or decreased air movement noted. Back: Full range of motion noted. Skin: Skin warm and dry. Normal skin color. Normal skin turgor. No rashes/lesions/lacerations noted. Extremities: No lower extremity edema. Extremities exhibit normal range of motion. Extremities nontender. Neuro: Oriented X 3. No motor deficit. No sensory deficit. Reflexes normal. Course Course Course Narrative: 80yoF c PMHx primary cancer of right upper lobe of lung and hypertension presenting to the ED with complaints of epistaxis 2 right Nare just prior to arrival with clots for approximately 45 minutes although resolved when she got here to the emergency department. - labs obtained and all within normal limits including H&H. Patient was given Afrin spray. No active bleeding at this time and we have monitor the patient for over an 2 hours at this point and continues to be epistaxis free. Therefore will DC home with instructions to return if any new or worsening symptoms to follow-up with primary care provider. Patient understands agrees the plan. MDM - Epistaxis Medical Records Attestation: I reviewed the patient's medical records. Lab Data Attestation: I reviewed the patient's lab results. Result diagrams: 11/02/20 10:56 12 10:56 Labs: Lab Results 11/02/20 12 12 Range/Units 10:56 10:56 10:56 WBC 6.2 (4.8-10.8) X10*3/uL RBC 4.12 L (4.20-5.50) X10*6/uL Hgb 12.8 (12.0-16.0) g/dl Hct 38.5 (37-47) % MCV 93.4 (80-98) fL MCH 31.1 (27.0-33.0) pg MCHC 33.2 (31.0-35.0) g/dl RDW 11.9 (11.0-16.0) % Plt Count 236 (160-400) X10*3/uL MPV 9.4 (9.4-12.3) fL Immature Gran % (Auto) 0.2 (0.0-0.4) % Neut % (Auto) 65.4 (45-73) % Lymph % (Auto) 22.1 (20-40) % Whiteside % (Auto) 8.9 (2-11) % Eos % (Auto) 2.8 (0-4) % Baso % (Auto) 0.6 (0-2) % Lymph # (Auto) 1.4 (1.2-4.9) X10*3/uL Whiteside # (Auto) 0.6 (0.1-1.2) X10*3/uL Eos # (Auto) 0.2 (0.0-0.4) X10*3/uL Baso # (Auto) 0.0 (0.0-0.2) X10*3/uL Abs Immat Gran (auto) 0.01 (0.00-0.03) X10*3/uL Absolute Neuts (auto) 4.0 (2.0-8.3) X10*3/uL Absolute Nucleated RBC 0.000 (0.0-0.012) X10*3/uL Nucleated RBC % (auto) 0.0 (0.0-0.2) /100WBC PT 11.9 (10.8-13.0) SEC INR 1.0 (0.9-1.1) Sodium 136 (135-145) mmol/L Potassium 4.3 (3.3-5.1) mmol/l Chloride 100 (96-108) mmol/L Carbon Dioxide 26 (22-29) mmol/L Anion Gap 14 (12-20) BUN 10 (9-16) mg/dL Creatinine 0.72 (0.5-1.4) mg/dL Estim Creat Clear Calc 52.0 Estimated GFR > 60 Random Glucose 102 (60-115) mg/dL Calcium 9.6 D (8.4-10.2) mg/dL Discharge Plan Discharge Clinical Impression: Epistaxis Patient Disposition: Home, Self-Care Instructions: Nosebleed (ED) Prescriptions: No Action amlodipine 10 mg tablet 10 mg PO DAILY RF: 0 polyethylene glycol 3350 17 gram/dose powder 17 g PO BID PRN (Reason: constipation) RF: 0 cetirizine 10 mg tablet 10 mg PO DAILY RF: 0 estradiol 0.01 % (0.1 mg/gram) cream vaginal RF: 0 atenolol 25 mg tablet 25 mg PO DAILY RF: 0 acetaminophen 325 mg tablet 650 mg PO Q6H RF: 0 albuterol sulfate 90 mcg/actuation HFA aerosol inhaler 0 mcg inhalation RF: 0 (DME) inhalational spacing device Spacer See Rx Instructions ea inhalation .MEDSUPPLY Qty: 1 RF: 0 loratadine 10 mg tablet 10 mg PO DAILY RF: 0 Referrals: Douglas Swift MD [Primary Care Provider] - 2 days Print Language: Lithuanian
--- NOTE | 2020-11-02 12:07 | PC.NURSE ---
EPISTAXIS SINCE THIS AM. DENIES BEING ON BLOOD THINNERS. AFRIN ADMINISTERED THOUGH EPISTAXIS HAD ALREADY RESOLVED. BLOOD DRAWN. PT A&OX3, SPEAKING IN CLEAR FULL SENTENCES. RESP EVEN AND NONLBAOURED. AMBULATING TO BATHROOM WITH NO ISSUES.
== END 2020-11-02 12:38 | disposition home or self-care (01) ==
PROVIDERS: Physician Assistant Medical; Emergency Provider Emergency Medicine Emergency Medical Services; PCP Internal Medicine
DX: R04.0 Epistaxis (principal); I10 Essential (primary) hypertension; Z85.118 Personal history of other malignant neoplasm of bronchus and lung; Z87.01 Personal history of pneumonia (recurrent)
CPT/HCPCS: 36415; 80048; 85025; 85610; 99283

== ENCOUNTER 2020-11-25 11:37 | Emergency (ER) | payer MEDICARE, SELFPAY ==
--- NOTE | 2020-11-25 15:00 | PC.NURSE ---
patient a&ox3, speaking in full sentences, o2 sat 94%, pt does not wish to wait any longer and is leaving without being seen
== END 2020-11-25 17:03 | disposition left against medical advice (07) ==
PROVIDERS: Emergency Provider Emergency Medicine Emergency Medical Services; PCP Internal Medicine
DX: R06.02 Shortness of breath (principal)
CPT/HCPCS: 99281

== ENCOUNTER 2020-12-04 09:06 | Outpatient (REF) | payer MEDICARE, SELFPAY ==
--- NOTE | 2020-12-04 09:08 | MR_ITS ---
MR BRAIN WITHOUT AND WITH CONTRAST CLINICAL INFORMATION: Tremors. Lung cancer. COMPARISON: None available. TECHNIQUE: Multiplanar, multisequence MRI of the brain was obtained before and after the intravenous administration of 6 mL Gadavist. FINDINGS: There is no pathologic intracranial enhancement. There is global cerebral volume loss and there is mild chronic microangiopathy. There is no hydrocephalus, extra-axial surface collection, or herniation. The major flow voids at the skull base are preserved. There is no acute infarct on diffusion-weighted imaging. There is no intracranial hemorrhage on the gradient recalled echo acquisition. The midline structures are normal. The cerebellar tonsils are normally positioned. The cerebellum and brainstem are normal. The craniocervical junction is normal. Osseous marrow signal intensity is homogenous. The visualized soft tissues are unremarkable. MR/MR head/brain wo/w con IMPRESSION: - No acute intracranial findings. No enhancing lesions. - There is global cerebral volume loss and there is mild chronic microangiopathy.
== END 2020-12-04 09:07 | disposition home or self-care (01) ==
LOC: HO.MRI 09:06
PROVIDERS: Visit Provider Internal Medicine
DX: C34.11 Malignant neoplasm of upper lobe, right bronchus or lung (principal)
CPT/HCPCS: 70553; A9585

== ENCOUNTER 2021-02-18 10:07 | Emergency (ER) | payer MEDICARE, SELFPAY ==
--- NOTE | 2021-02-18 | ECG_ITS ---
Test Reason : CHEST PAIN Blood Pressure : / mmHG Vent. Rate : 068 BPM Atrial Rate : 068 BPM P-R Int : 160 ms QRS Dur : 086 ms QT Int : 404 ms P-R-T Axes : 072 049 074 degrees QTc Int : 429 ms Normal sinus rhythm Possible Left atrial enlargement Borderline ECG When compared with ECG of 29-JUN-2003 11:40, No significant change was found Referred By: Generic ED Physician Electronically Signed By:LEONELA BEAR
--- NOTE | ~2021-02-18 | XR_ITS ---
EXAMINATION: XR CHEST CLINICAL INFORMATION: Right-sided chest pain. Recent resection right upper lobe mass. COMPARISON: Chest radiographs 10/01/2020, 09/30/2020, 09/29/2020, 09/28/2020, 09/27/2020. CT chest 09/27/2020 and 07/26/2020 TECHNIQUE: 2 views of the chest were obtained. FINDINGS: There are postsurgical changes on the right with fine staple line medial upper zone. There is no pneumothorax or pneumomediastinum. Superior tenting right diaphragm is stable. There is subsegmental atelectasis right base suggested on lateral view. The heart is normal in size. The vascularity is normal. There is no vascular congestion or airspace consolidation or effusion. The hilar and mediastinal contours and bony structures are unremarkable. XR/XR chest 2V IMPRESSION: 1. Postsurgical changes right hemithorax. Subsegmental atelectasis right base. 2. No pneumothorax. No airspace consolidation.
--- NOTE | ~2021-02-18 | CT_ITS ---
EXAMINATION: CT ABDOMEN AND PELVIS WITH CONTRAST CLINICAL INFORMATION: Pulmonary emboli. Rule out malignancy. COMPARISON: Previous CT of the abdomen and pelvis from 2008 TECHNIQUE: Multidetector volumetric images were obtained from the superior aspect of the liver through the pubic symphysis following administration 85 mL of Omnipaque 350 intravenous contrast. Sagittal and coronal reformatted images were obtained on the technologist's workstation. Oral contrast: Yes This CT examination was performed using dose optimization techniques as appropriate, variously including the following: *Automated exposure control *Adjustment of mA and/or kV according to patient size (this includes techniques or standardized protocols for targeted exams where dose is matched to indication/reason for exam; i.e. extremities or head) *Use of iterative reconstruction technique DLP: 5-5 mGy-cm FINDINGS: LIVER, GALLBLADDER, AND BILIARY TREE: The liver is normal in size, shape, and attenuation. No focal hepatic lesion or biliary ductal dilatation is present. The gallbladder is unremarkable with no evidence of radiopaque gallstones, gallbladder wall thickening, or obvious pericholecystic inflammatory changes. PANCREAS: There is a complex cyst seen in the neck of the pancreas with several septations. This measures approximately 2 cm. There may be a second adjacent smaller 4 mm cyst in the tail of the pancreas adjacent to the main pancreatic duct. There is mild dilatation of the main pancreatic duct in the head of the pancreas measuring 5 mm. These findings are new from 2018 exam. SPLEEN: Unremarkable. ADRENAL GLANDS: There is a nodular contour of the left adrenal gland that is stable. The right adrenal gland is normal. KIDNEYS AND URETERS: The kidneys are normal in size, shape, and attenuation. No hydronephrosis, hydroureter, or calculi seen. No perinephric stranding. BLADDER: Unremarkable. GASTROINTESTINAL TRACT: There is mild diverticulosis of the colon. The small and large bowel are otherwise unremarkable. The appendix is not seen. There is a small esophageal hernia. The stomach is otherwise normal. ABDOMINAL WALL: No significant hernia is appreciated. LYMPH NODES: Normal. VASCULAR: There is evidence of atherosclerotic disease. No aneurysm is seen. PELVIC VISCERA: Uterus appears to have been removed. No pelvic mass is seen. OSSEOUS STRUCTURES: There are degenerative changes of the spine. CT/CT abdomen pelvis w con IMPRESSION: New complex cystic lesion in the neck of the pancreas, smaller 4 mm cyst in the tail the pancreas and dilatation of the main pancreatic duct. This could be better evaluated with MR with contrast and MRCP.
--- NOTE | ~2021-02-18 | CT_ITS ---
EXAMINATION: CT ANGIOGRAM OF THE CHEST WITH AND WITHOUT CONTRAST (CT PULMONARY ANGIOGRAM FOR PE) CLINICAL INFORMATION: Reason for Exam h/o malignancy, pleuritic R CP, r/o pe COMPARISON: Previous chest CT most recent June 2020 TECHNIQUE: Prior to contrast administration, noncontrast localization images were obtained. Subsequently, multidetector volumetric imaging was performed from the thoracic inlet to below the diaphragms following the administration of 85 mL Omnipaque 350 intravenous contrast. No contrast reaction reported Sagittal, coronal, and MIP oblique sagittal reformatted images were obtained on the CT workstation, uploaded to PACS, and reviewed. This CT examination was performed using dose optimization techniques as appropriate, variously including the following: *Automated exposure control *Adjustment of mA and/or kV according to patient size (this includes techniques or standardized protocols for targeted exams where dose is matched to indication/reason for exam; i.e. extremities or head) *Use of iterative reconstruction technique Total exam dose-length product 85 mGy-cm FINDINGS: QUALITY OF STUDY/CONTRAST BOLUS: Satisfactory. PULMONARY ARTERIES: No central or segmental pulmonary emboli. THORACIC AORTA: No aneurysm or dissection. LUNG: There are postsurgical changes to the right hemithorax following resection of the right upper lobe. There is a cluster peribronchial small nodules or tree-in-bud appearance superior segment of the right lower lobe. The there is bronchial wall thickening, mild bronchiectasis and bronchial soft tissue opacification seen in the left lower lobe. There is minimal more peripheral atelectasis or small infiltrate seen in the posterior basal left lower lobe. PLEURA: Small right pleural effusion and. No left pleural effusion. MEDIASTINUM: Normal heart size. No pericardial effusion. No hilar or mediastinal lymphadenopathy. No evidence of septal bowing or right heart strain. CHEST WALL/AXILLA: No axillary or internal mammary lymphadenopathy. OSSEOUS STRUCTURES: There are degenerative changes of the thoracic spine with ossification of the anterior longitudinal ligament. CT/CT angio chest PE protocol IMPRESSION: No evidence of pulmonary embolism. Postsurgical changes to the right hemithorax following right upper lobe lobectomy. Tree-in-bud appearance or airways disease in the superior segment of the right lower lobe. Bronchiectasis, bronchial wall thickening and some bronchial soft tissue opacification in the left lower lobe. Small right pleural effusion. VTE: negative
[2021-02-18 10:14] VITALS: BP 159/57; PULSE 70; RESP 15; TEMP 36.6; O2SAT 97; BMI 25.9
--- NOTE | 2021-02-18 10:40 | ED_ITS ---
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 No cough from baseline. Mild shortness of breath. No leg swelling or pain. Not currently on anticoagulation. Followed by Dr. Spicer. Not currently on chemotherapy. Related Data Home Medications Medication Instructions Recorded Confirmed amlodipine 10 mg tablet 10 mg PO DAILY 08/30/20 10/18/20 cetirizine 10 mg tablet 10 mg PO DAILY 08/30/20 10/18/20 estradiol g VAGINAL 08/30/20 10/18/20 polyethylene glycol 3350 17 17 g PO BID PRN 08/30/20 10/18/20 gram/dose oral powder acetaminophen 325 mg tablet 650 mg PO Q6H PRN 09/27/20 01/06/21 albuterol sulfate 90 mcg/actuation 0 mcg INHALATION 09/27/20 10/18/20 aerosol inhaler inhalational spacing device #1 ea 09/27/20 10/18/20 loratadine 10 mg tablet 10 mg PO DAILY 10/18/20 01/06/21 Allergies Allergy/AdvReac Type Severity Reaction Status Date / Time amoxicillin [AMOXICILLIN] Allergy Unknown FELT SICK Verified 09/27/20 15:11 moxifloxacin [From AVELOX] Allergy Unknown UNKNOWN Verified 09/27/20 15:11 multiple medication Allergy Unknown Unknown Uncoded 08/30/20 09:51 sensitivit Review of Systems Review of Systems: Yes all other systems are reviewed and are negative Constitutional: Constitutional: Reports no additional constitutional complaints, Denies body ache(s), Denies chills, Reports fatigue, Denies fever(s), Denies headache(s) and Reports weakness Eyes: Eyes: Reports no additional eye complaints and Denies change in vision ENT: Reports system reviewed and no additional complaints, except as documented, Denies dizziness, Denies headache(s), Denies nasal congestion, Denies nasal discharge and Denies neck pain Cardiovascular: Cardiovascular: Reports no additional cardiovascular complaints, Reports chest pain, Denies leg edema and Reports dyspnea Respiratory: Respiratory: Reports no additional respiratory complaints, Denies cough and Reports dyspnea Gastrointestinal: Gastrointestinal: Reports no additional gastrointestinal complaints, Reports abdominal pain, Denies diarrhea, Denies nausea and Denies vomiting Genitourinary: Genitourinary: Reports no additional female genitourinary complaints and Denies urinary incontinence Musculoskeletal: Musculoskeletal: Reports no additional musculoskeletal complaints, Denies back pain, Denies arthralgias, Denies joint swelling, Denies neck pain, Denies numbness and Denies tingling Integumentary/Breasts: Skin/Breast: Reports system reviewed and no additional complaints, except as docu and Denies rash Neurologic: Reports system reviewed and no additional complaints, except as documented, Denies Abnormal speech present, Denies dizziness, Denies headache(s), Denies numbness, Denies tingling and Reports weakness Endocrine: Endocrine: Reports fatigue PMFSH Past Medical History Attestation statement: The following information was validated with the patient. Source: old records reviewed and nursing notes reviewed Medical History (Updated 02/18/21 @ 14:11 by Josefa Snell NP) History of pneumonia Hypertension Primary cancer of right upper lobe of lung Seasonal allergies Surgical History (Updated 02/18/21 @ 10:44 by Josefa Snell NP) H/O tubal ligation History of rectal surgery S/P lobectomy of lung Family History Family History Sister Liver transplant recipient Father Stroke Mother Diabetes mellitus Maternal Uncle Lung cancer Social History Social History Household Members: None Housing: Apartment Smoking Status: Former smoker Advance Directives: Yes Advance Directives on File: Yes Advance Directives Date on File: 09/02/20 Physical Exam Vital Signs: Vital Signs: Last Vital Signs Temp 98 F 02/18/21 10:14 Pulse 60 02/18/21 12:42 Resp 14 02/18/21 12:42 BP 143/59 H 02/18/21 12:42 Pulse Ox 96 02/18/21 12:42 Body Mass Index 25.9 Const: General: cooperative, healthy appearing, comfortable and no acute distress Orientation/consciousness: patient oriented x3 Limitations: no limitations HENMT: Head: Yes normal to inspection Ears: hearing grossly normal bilaterally General nose exam: Normal external nose present Face and sinus: Yes normal facial exam Mouth: Normal oral and palatal mucosa present Throat: Yes posterior oropharynx normal Eyes: General: appearance normal, both eyes and all related structures Pupils: Equal, round and reactive pupils present Neck: Neck: Yes normal visual inspection Chest: Other: Right chest tender to palpate, worsened with deep breathing and movement Chest palpation & inspection: normal inspection of the chest Resp: Effort & Inspection: normal respiratory effort Auscultation: clear to auscultation bilaterally Cardio: Rate: regular rate Rhythm: regular rhythm Peripheral pulses: Peripheral pulses 2+ throughout GI: Inspection: Yes normal to inspection Palpation (GI): Soft to palpation and Tenderness to palpation present (GI) (Mild right upper and right lower with no rebound or guarding) Auscultation: normal bowel sounds Back/Spine/Pelvis: Thoracic/Lumbar Spine: thoracic and lumbar spine normal to inspection Skin: General skin exam: no rashes or lesions noted Neuro: General: patient oriented x3, no focal motor deficits and normal sensation to monofilament Cranial nerves: Yes Equal, round and reactive pupils present Cognition (Neuro): normal cognition Speech: No Abnormal speech present Gait exam (Neuro): Normal gait present Motor exam (neuro): 5/5 motor strength present throughout Extrem: General: Yes normal to inspection, Yes no pedal edema and Yes no calf tenderness Course Course Course Narrative: 80-year-old female vague historian here with complaints of generalized weakness and fatigue for the last 24 hours in the setting of increasing right-sided chest pain and shortness of breath over last 2 weeks. On exam has reproducible right-sided chest pain with no apparent shortness of breath and stable saturations. Also complaining of some right upper and right lower abdominal pain on exam. Will need labs, EKG, Ua, chest x-ray, likely CT abdomen and chest. 1140-CXR unremarkable. CT A/P/chest ordered. 1315-Ct chest New complex cystic lesion in the neck of the pancreas, smaller 4 mm cyst in the tail the pancreas and dilatation of the main pancreatic duct. This could be better evaluated with MR with contrast and MRCP. Labs are unremarkable including LFTs and lipase. Call out to GI to discuss further management. 1345-discussed patient with Dr. Denis from GI. Patient can be worked up further outpatient with MRI. Does not need admission. Dr. Spicer the patient's oncologist was updated. Patient walked back and forth bathroom several times with a steady gait. Pain is mild and well controlled per patient. Reviewed findings with the patient. We discussed she must follow-up with GI for further testing. Reviewed worrisome signs and symptoms of when to return to the emergency department. Comfortable discharge home. MDM - Chest Pain MDM Narrative Medical decision making narrative: Pneumonia, chest wall strain, ACS, PE, reoccurrence of disease,, cholecystitis Medical Records Data Attestation: I reviewed the patient's medical records. Lab Data Attestation: I reviewed the patient's lab results. Result diagrams: 02/18/21 10:45 02/18/21 10:45 Labs: Lab Results 02/18/21 02/18/21 02/18/21 Range/Units 10:45 10:45 10:45 WBC 6.2 (4.8-10.8) X10*3/uL RBC 4.24 (4.20-5.50) X10*6/uL Hgb 13.0 (12.0-16.0) g/dl Hct 39.1 (37-47) % MCV 92.2 (80-98) fL MCH 30.7 (27.0-33.0) pg MCHC 33.2 (31.0-35.0) g/dl RDW 12.1 (11.0-16.0) % Plt Count 241 (160-400) X10*3/uL MPV 9.6 (9.4-12.3) fL Immature Gran % (Auto) 0.2 (0.0-0.4) % Neut % (Auto) 66.8 (45-73) % Lymph % (Auto) 20.2 (20-40) % [place] % (Auto) 9.3 (2-11) % Eos % (Auto) 2.7 (0-4) % Baso % (Auto) 0.8 (0-2) % Lymph # (Auto) 1.3 (1.2-4.9) X10*3/uL [place] # (Auto) 0.6 (0.1-1.2) X10*3/uL Eos # (Auto) 0.2 (0.0-0.4) X10*3/uL Baso # (Auto) 0.1 (0.0-0.2) X10*3/uL Abs Immat Gran (auto) 0.01 (0.00-0.03) X10*3/uL Absolute Neuts (auto) 4.2 (2.0-8.3) X10*3/uL Absolute Nucleated RBC 0.000 (0.0-0.012) X10*3/uL Nucleated RBC % (auto) 0.0 (0.0-0.2) /100WBC Hold Blue Top SEE NOTE Sodium 140 (135-145) mmol/L Potassium 3.7 (3.3-5.1) mmol/L Chloride 101 (96-108) mmol/L Carbon Dioxide 28 (22-29) mmol/L Anion Gap 15 (12-20) BUN 13 (9-16) mg/dL Creatinine 0.78 (0.5-1.4) mg/dL Estim Creat Clear Calc 48.2 Estimated GFR > 60 Random Glucose 159 H D (60-115) mg/dL Calcium 9.3 (8.4-10.2) mg/dL Magnesium 2.3 (1.6-2.6) mg/dL Total Bilirubin 0.6 (0.0-1.0) mg/dL Direct Bilirubin < 0.2 (0.0-0.5) mg/dL AST 16 (5-31) U/L ALT 13 (0-31) U/L Alkaline Phosphatase 86 D (39-117) U/L Troponin I High Sens (<3.5-17.0) ng/L Total Protein 7.3 (6.5-8.0) g/dL Albumin 4.5 (3.5-5.0) g/dL Lipase 35 (8-78) U/L Urine Color Urine Appearance Urine pH (5.0-8.0) Ur Specific [place] (1.005-1.025) Urine Protein (NEG-TRACE) MG/DL Urine Glucose (UA) (NEG) MG/DL Urine Ketones (NEG) MG/DL Urine Blood (NEG) Urine Nitrite (NEG) Ur Leukocyte Esterase (NEG) 02/18/21 02/18/21 Range/Units 10:45 12:50 WBC (4.8-10.8) X10*3/uL RBC (4.20-5.50) X10*6/uL Hgb (12.0-16.0) g/dl Hct (37-47) % MCV (80-98) fL MCH (27.0-33.0) pg MCHC (31.0-35.0) g/dl RDW (11.0-16.0) % Plt Count (160-400) X10*3/uL MPV (9.4-12.3) fL Immature Gran % (Auto) (0.0-0.4) % Neut % (Auto) (45-73) % Lymph % (Auto) (20-40) % [place] % (Auto) (2-11) % Eos % (Auto) (0-4) % Baso % (Auto) (0-2) % Lymph # (Auto) (1.2-4.9) X10*3/uL [place] # (Auto) (0.1-1.2) X10*3/uL Eos # (Auto) (0.0-0.4) X10*3/uL Baso # (Auto) (0.0-0.2) X10*3/uL Abs Immat Gran (auto) (0.00-0.03) X10*3/uL Absolute Neuts (auto) (2.0-8.3) X10*3/uL Absolute Nucleated RBC (0.0-0.012) X10*3/uL Nucleated RBC % (auto) (0.0-0.2) /100WBC Hold Blue Top Sodium (135-145) mmol/L Potassium (3.3-5.1) mmol/L Chloride (96-108) mmol/L Carbon Dioxide (22-29) mmol/L Anion Gap (12-20) BUN (9-16) mg/dL Creatinine (0.5-1.4) mg/dL Estim Creat Clear Calc Estimated GFR Random Glucose (60-115) mg/dL Calcium (8.4-10.2) mg/dL Magnesium (1.6-2.6) mg/dL Total Bilirubin (0.0-1.0) mg/dL Direct Bilirubin (0.0-0.5) mg/dL AST (5-31) U/L ALT (0-31) U/L Alkaline Phosphatase (39-117) U/L Troponin I High Sens < 3.5 (<3.5-17.0) ng/L Total Protein (6.5-8.0) g/dL Albumin (3.5-5.0) g/dL Lipase (8-78) U/L Urine Color YELLOW Urine Appearance CLEAR Urine pH 6.5 (5.0-8.0) Ur Specific [place] 1.010 (1.005-1.025) Urine Protein NEG (NEG-TRACE) MG/DL Urine Glucose (UA) NEG (NEG) MG/DL Urine Ketones NEG (NEG) MG/DL Urine Blood NEG (NEG) Urine Nitrite NEG (NEG) Ur Leukocyte Esterase NEG (NEG) Imaging Data Chest x-ray: Attestation: I personally reviewed and interpreted this imaging study as follows: Radiologist's impression: EXAMINATION: XR CHEST CLINICAL INFORMATION: Right-sided chest pain. Recent resection right upper lobe mass. COMPARISON: Chest radiographs 10/01/2020, 09/30/2020, 09/29/2020, 09/28/2020, 09/27/2020. CT chest 09/27/2020 and 07/26/2020 TECHNIQUE: 2 views of the chest were obtained. FINDINGS: There are postsurgical changes on the right with fine staple line medial upper zone. There is no pneumothorax or pneumomediastinum. Superior tenting right diaphragm is stable. There is subsegmental atelectasis right base suggested on lateral view. The heart is normal in size. The vascularity is normal. There is no vascular congestion or airspace consolidation or effusion. The hilar and mediastinal contours and bony structures are unremarkable. XR/XR chest 2V IMPRESSION: 1. Postsurgical changes right hemithorax. Subsegmental atelectasis right base. 2. No pneumothorax. No airspace consolidation. CT scan - abdomen: Attestation: I personally reviewed and interpreted this imaging study as follows: Radiologist's impression: New complex cystic lesion in the neck of the pancreas, smaller 4 mm cyst in the tail the pancreas and dilatation of the main pancreatic duct. This could be better evaluated with MR with contrast and MRCP. CT scan - chest: Attestation: I personally reviewed and interpreted this imaging study as follows: Radiologist's impression: No evidence of pulmonary embolism. Postsurgical changes to the right hemithorax following right upper lobe lobectomy. Tree-in-bud appearance or airways disease in the superior segment of the right lower lobe. Bronchiectasis, bronchial wall thickening and some bronchial soft tissue opacification in the left lower lobe. Small right pleural effusion. VTE: negative ECG Data ECG #1: Attestation: I personally reviewed and interpreted this ECG as follows: ECG interpretation date: 02/18/21 ECG interpretation time: 09:27 Interpretation: NSR, normal pr, normal qrs, normal qt Discharge Plan Discharge Clinical Impression: Atypical chest pain, Cyst of pancreas Patient Disposition: Home, Self-Care Instructions: Pancreatic Pseudocyst (DC), Chest Wall Pain (ED) Additional Instructions: Your CT scan shows a cyst on your pancreas. Call GI for a follow-up as you will need more testing done Follow-up with Dr Spicer as scheduled Prescriptions: No Action amlodipine 10 mg tablet 10 mg PO DAILY RF: 0 polyethylene glycol 3350 17 gram/dose powder 17 g PO BID PRN (Reason: constipation) RF: 0 cetirizine 10 mg tablet 10 mg PO DAILY RF: 0 estradiol 0.01 % (0.1 mg/gram) cream vaginal RF: 0 acetaminophen 325 mg tablet 650 mg PO Q6H PRN (Reason: Pain) RF: 0 albuterol sulfate 90 mcg/actuation HFA aerosol inhaler 0 mcg inhalation RF: 0 (DME) inhalational spacing device Spacer See Rx Instructions ea inhalation .MEDSUPPLY Qty: 1 RF: 0 loratadine 10 mg tablet 10 mg PO DAILY RF: 0 Referrals: Erlin Kuo [Physician] - 2 days Interventions: ED Discharge Assessment Last Done: 02/18/21 14:35 Discharge Date/Time: 02/18/21 14:36
[2021-02-18 10:52] LABS: MANUAL DIFF FLAG NO
[2021-02-18 10:54] LABS: Basophils Absolute Auto 0.1 X10*3/uL (0.0-0.2); Basophils Percent Auto 0.8 % (0-2); Eosinophils Absolute Auto 0.2 X10*3/uL (0.0-0.4); Eosinophils Percent Auto 2.7 % (0-4); Hematocrit 39.1 % (37-47); Imm Gran Abs Auto 0.01 X10*3/uL (0.00-0.03); Imm Gran Pct Auto 0.2 % (0.0-0.4); Lymphocytes Absolute Auto 1.3 X10*3/uL (1.2-4.9); Lymphocytes Percent Auto 20.2 % (20-40); Mean Corpuscular HGB Conc 33.2 g/dl (31.0-35.0); Mean Corpuscular Hemoglobin 30.7 pg (27.0-33.0); Mean Corpuscular Volume 92.2 fL (80-98); Mean Platelet Volume 9.6 fL (9.4-12.3); Monocytes Absolute Auto 0.6 X10*3/uL (0.1-1.2); Monocytes Percent Auto 9.3 % (2-11); Neutrophils Absolute Auto 4.2 X10*3/uL (2.0-8.3); Neutrophils Percent Auto 66.8 % (45-73); Platelet Count 241 X10*3/uL (160-400); Red Blood Count 4.24 X10*6/uL (4.20-5.50); Red Cell Distribution Width 12.1 % (11.0-16.0); White Blood Count 6.2 X10*3/uL (4.8-10.8)
[2021-02-18 11:14] LABS: Alanine Aminotransferase 13 U/L (0-31); Albumin Level 4.5 g/dL (3.5-5.0); Alkaline Phosphatase 86 U/L (39-117); Anion Gap 15 (12-20); Aspartate Amino Transferase 16 U/L (5-31); Bilirubin Direct < 0.2 mg/dL (0.0-0.5); Bilirubin Total 0.6 mg/dL (0.0-1.0); Blood Urea Nitrogen 13 mg/dL (9-16); Calcium 9.3 mg/dL (8.4-10.2); Carbon Dioxide 28 mmol/L (22-29); Chloride 101 mmol/L (96-108); Creatinine Clr Calc Pharmacy 48.2; Estimated Glomerular Filt Rate > 60; Glucose Random 159 mg/dL (60-115); Magnesium 2.3 mg/dL (1.6-2.6); Potassium 3.7 mmol/L (3.3-5.1); Sodium 140 mmol/L (135-145); Total Protein 7.3 g/dL (6.5-8.0)
[2021-02-18 11:18] LABS: Troponin-I High Sensitivity < 3.5 ng/L (<3.5-17.0)
[2021-02-18 12:42] VITALS: BP 143/59; PULSE 60; RESP 14; O2SAT 96
[2021-02-18 13:14] LABS: Lipase 35 U/L (8-78)
[2021-02-18 13:16] LABS: Glucose Urine UA NEG (NEG); Leukocyte Esterase Urine NEG (NEG); Nitrite Urine NEG (NEG); PH 6.5 (5.0-8.0); Urine Blood NEG (NEG); Urine Ketones NEG (NEG); Urine Protein NEG (NEG-TRACE)
[2021-02-18 13:18] LABS: Appearance Urine CLEAR; Color Urine YELLOW
== END 2021-02-18 14:36 | disposition home or self-care (01) ==
PROVIDERS: Nurse Practitioner Family; Emergency Provider Emergency Medicine Emergency Medical Services; PCP Internal Medicine
DX: R07.89 Other chest pain (principal); K86.2 Cyst of pancreas; R53.1 Weakness; I10 Essential (primary) hypertension; Z85.118 Personal history of other malignant neoplasm of bronchus and lung; Z87.01 Personal history of pneumonia (recurrent); Z87.891 Personal history of nicotine dependence
CPT/HCPCS: 36415; 71046; 71275; 74177; 80048; 80076; 81003; 83690; 83735; 84484; 85025; 93005; 99284; 99285; Q9967

== ENCOUNTER 2021-04-07 09:17 | Outpatient (REF) | payer MEDICARE, SELFPAY ==
--- NOTE | ~2021-04-07 | MR_ITS ---
EXAMINATION: MR ABDOMEN WITHOUT AND WITH CONTRAST CLINICAL INFORMATION: Pancreatic cyst. COMPARISON: Previous CT of the abdomen and pelvis January 2021 and November 2007. TECHNIQUE: MR abdomen was performed without and with use of 6 mL intravenous Gadavist gadolinium contrast. Postcontrast images are performed in multiphase dynamic sequences. Imaging was performed in 3 planes. MRCP sequences were also performed. FINDINGS: LUNG BASES: There is a trace right pleural effusion or pleural thickening. LIVER, GALLBLADDER, AND BILIARY TREE: The liver is normal in size and shape. There is slight signal loss in the liver on [id number] sequences suggestive of mild fatty infiltration. No focal liver lesion is seen. The gallbladder is normal. The extrahepatic bile ducts are normal. PANCREAS: There is a 1.2 x 2 cm x 1.2 cyst in the neck of the pancreas. This has several thin septations. This abuts and may communicate with the main pancreatic duct. The main pancreatic duct is upper normal in size measuring 3 mm. This does not demonstrate a solid component or evidence of enhancement. There are 2 smaller cysts seen in the body of the pancreas measuring 5 mm and tail of the pancreas measuring 1.2 x 0.6 cm. These also abut and likely communicate with the main pancreatic duct. SPLEEN: Normal. ADRENAL GLANDS: There is fullness of the left adrenal gland. KIDNEYS AND URETERS: The kidneys are normal in size, shape, and enhance symmetrically. No hydronephrosis. No perinephric stranding. GASTROINTESTINAL TRACT: The visualized small and large bowel is unremarkable. No bowel obstruction. There is a small esophageal hernia. No ascites or fluid collection. ABDOMINAL WALL: No significant hernia is appreciated. LYMPH NODES: No lymphadenopathy. VASCULAR: Unremarkable. OSSEOUS STRUCTURES: Marrow signal normal. There are degenerative changes of the spine. MR/MR abdomen wo/w con IMPRESSION: Several cystic lesions in the pancreas, largest measuring 1.2 x 2 x 1.2 cm in the neck of the pancreas. This has several thin nonenhancing septations and abut and likely communicate with the main pancreatic duct. Cystic lesions are new from remote 2018 exam. IPMN should be considered. Stable fullness of the left adrenal gland. Small esophageal hernia.
== END 2021-04-07 09:18 | disposition home or self-care (01) ==
LOC: HO.MRI 09:17
PROVIDERS: Visit Provider Internal Medicine
DX: K86.2 Cyst of pancreas (principal)
CPT/HCPCS: 74183; A9585

== ENCOUNTER 2021-04-09 09:54 | Outpatient (REF) | payer MEDICARE, SELFPAY ==
--- NOTE | ~2021-04-09 | MM_ITS ---
EXAMINATION: MM SCREENING DIGITAL BREAST TOMOSYNTHESIS, BILATERAL CLINICAL INFORMATION: Screening. Asymptomatic. The lifetime risk of breast cancer based on the Tyrer-Cuzick Model is 1%. COMPARISON: Mammography: 02/09/2019, 01/21/2018, and prior exams dating back to 09/15/2011. TECHNIQUE: Digital breast tomosynthesis is performed in both the craniocaudal and mediolateral oblique views along with computer-aided detection (CAD). Synthesized 2D images are generated from the tomosynthesis. FINDINGS: There are scattered areas of fibroglandular density (ACR BI-RADS breast composition Category b). There are no significant masses, abnormal calcifications, or other abnormalities. Axillary nodes are stable. The skin contours are smooth. No significant changes. MM/MM tomosynthesis screening BI IMPRESSION: No mammographic evidence of malignancy. ASSESSMENT: BI-RADS 2: Benign RECOMMENDATION: Routine annual mammography screening. This patient's information was entered into a reminder system with a target due date for their next mammogram.
== END 2021-04-09 09:55 | disposition home or self-care (01) ==
LOC: HO.MAMMO 09:54
PROVIDERS: PCP Internal Medicine; Visit Provider Internal Medicine
DX: Z12.31 Encounter for screening mammogram for malignant neoplasm of breast (principal)
CPT/HCPCS: 77063; 77067

== ENCOUNTER 2021-04-24 11:17 | Outpatient (REF) | payer MEDICARE, SELFPAY ==
[2021-04-25 12:01] LABS: Carbohydrate Antigen 19-9 12 U/mL (<34)
== END 2021-04-24 11:18 | disposition home or self-care (01) ==
LOC: HO.LAB 11:17
PROVIDERS: PCP Internal Medicine; Visit Provider Internal Medicine
DX: K86.2 Cyst of pancreas (principal)
CPT/HCPCS: 36415; 86301

== ENCOUNTER 2021-05-12 09:31 | Outpatient (REF) | payer MEDICARE, SELFPAY ==
--- NOTE | ~2021-05-12 | CT_ITS ---
EXAMINATION: CT CHEST WITHOUT CONTRAST CLINICAL INFORMATION: Malignant neoplasm right upper lobe. COMPARISON: Previous CT scans, most recent chest CTA January 2021. TECHNIQUE: Multidetector volumetric CT imaging of the chest was done. Axial MIP volume rendering provided. Sagittal and coronal reformatted images were obtained. This CT examination was performed using dose optimization techniques as appropriate, variously including the following: *Automated exposure control *Adjustment of mA and/or kV according to patient size (this includes techniques or standardized protocols for targeted exams where dose is matched to indication/reason for exam; i.e. extremities or head) *Use of iterative reconstruction technique DLP: 238 mGy-cm FINDINGS: LUNGS: There are postsurgical changes from right upper lobe lobectomy. There are clustered small peribronchial nodules seen in the right lower lobe suggestive of tree-in-bud appearance or airways disease. There is mild bronchial wall thickening and larger peribronchial nodular opacities in the left lower lobe, also suggestive of airways disease. This does not appear appreciably changed from previous CTA January 2021. MEDIASTINUM: There is mild aortic valve and coronary artery calcification. There is no pericardial effusion. The thoracic aorta is normal in caliber. There are no enlarged hilar or mediastinal lymph nodes. There is a small esophageal hernia. PLEURA: There is a small right pleural effusion or pleural thickening that is stable. AXILLA: No lymphadenopathy. UPPER ABDOMEN: Unremarkable OSSEOUS STRUCTURES: There are degenerative changes of the spine. CT/CT chest wo con IMPRESSION: Stable postsurgical changes following right upper lobe lobectomy. Stable small peribronchial right lower lobe nodules or tree-in-bud appearance and left lower lobe bronchial wall thickening and peribronchial nodular opacities probably representing an infectious or inflammatory process. Stable small right pleural effusion or pleural thickening.
== END 2021-05-12 09:32 | disposition home or self-care (01) ==
LOC: HO.CT 09:31
PROVIDERS: Visit Provider Surgery
DX: C34.11 Malignant neoplasm of upper lobe, right bronchus or lung (principal)
CPT/HCPCS: 71250

== ENCOUNTER → 2021-05-30 09:13 | Outpatient (BNVA) | payer MEDICARE, SELFPAY | PROVIDERS: PCP Internal Medicine; Visit Provider Surgery | DX: C34.11 Malignant neoplasm of upper lobe, right bronchus or lung (principal); Z79.899 Other long term (current) drug therapy; Z90.2 Acquired absence of lung [part of] | CPT/HCPCS: 99212 ==

== ENCOUNTER 2021-10-22 12:21 | Outpatient (REF) | payer MEDICARE, SELFPAY ==
--- NOTE | ~2021-10-22 | CT_ITS ---
EXAMINATION: CT CHEST WITHOUT CONTRAST CLINICAL INFORMATION: Malignant neoplasm right upper lobe. COMPARISON: Previous chest CT scans, most recent April 2021 TECHNIQUE: Multidetector volumetric CT imaging of the chest was done. Axial MIP volume rendering provided. Sagittal and coronal reformatted images were obtained. This CT examination was performed using dose optimization techniques as appropriate, variously including the following: *Automated exposure control *Adjustment of mA and/or kV according to patient size (this includes techniques or standardized protocols for targeted exams where dose is matched to indication/reason for exam; i.e. extremities or head) *Use of iterative reconstruction technique DLP: 511 mGy-cm FINDINGS: LUNGS: There are stable postsurgical changes following right upper lobe lobectomy. There are still clustered peribronchial nodules in the superior segment of the right lower lobe. The largest measures 7 mm. This is slightly increased compared to most recent exams January and April 2021. There is focal bronchiectasis, bronchial wall thickening and mucus plugging seen in the left lower lobe posterior basal segment. This appears unchanged. No new pulmonary nodules are seen. MEDIASTINUM: There is mild coronary artery calcification. The heart does not appear enlarged. There is no pericardial effusion. There are no enlarged hilar or mediastinal lymph nodes. The visualized thyroid gland is unremarkable. There is a small esophageal hernia. PLEURA: There is no pleural effusion. No pleural mass or thickening. AXILLA: No lymphadenopathy. UPPER ABDOMEN: Unremarkable. OSSEOUS STRUCTURES: There are degenerative changes of the spine. CT/CT chest wo con IMPRESSION: Postoperative changes from right upper lobe lobectomy. Interval increase in size and number of clustered peribronchial nodules in the superior segment of the right lower lobe. Stable left lower lobe focal bronchiectasis, bronchial wall thickening and soft tissue opacification/mucus plugging. Fleischner guidelines were followed.
== END 2021-10-22 12:22 | disposition home or self-care (01) ==
LOC: HO.CT 12:21
PROVIDERS: PCP Internal Medicine; Visit Provider Surgery
DX: C34.11 Malignant neoplasm of upper lobe, right bronchus or lung (principal)
CPT/HCPCS: 71250

== ENCOUNTER → 2021-12-12 08:26 | Outpatient (BNVA) | payer MEDICARE, SELFPAY | PROVIDERS: PCP Internal Medicine; Visit Provider Surgery | DX: C34.11 Malignant neoplasm of upper lobe, right bronchus or lung (principal); R91.8 Other nonspecific abnormal finding of lung field; Z79.899 Other long term (current) drug therapy | CPT/HCPCS: 99212 ==

== ENCOUNTER 2021-12-16 08:46 | Outpatient (REF) | payer MEDICARE, SELFPAY ==
--- NOTE | ~2021-12-16 | CT_ITS ---
EXAMINATION: CT CHEST WITHOUT CONTRAST CLINICAL INFORMATION: Malignant neoplasm of the right lung. Follow-up. COMPARISON: Prior CT chest 10/22/2021 and 05/12/2021 TECHNIQUE: Multidetector volumetric CT imaging of the chest was done. Axial MIP volume rendering provided. Sagittal and coronal reformatted images were obtained. This CT examination was performed using dose optimization techniques as appropriate, variously including the following: *Automated exposure control *Adjustment of mA and/or kV according to patient size (this includes techniques or standardized protocols for targeted exams where dose is matched to indication/reason for exam; i.e. extremities or head) *Use of iterative reconstruction technique DLP: 133 mGy-cm FINDINGS: CAMP ADVISOR: Unremarkable LUNGS: Postsurgical changes right upper lobe again observed, with volume loss noted. Clustered peribronchial nodularity in the associated bronchiectatic change noted. Overall the picture is one of stability. Bronchiectatic change in the left infrahilar region extending to the left lower lobe is again observed as well. New masses or consolidations are not seen. Superior segment of the right lower lobe extending to the infrahilar region is again observed. No significant change. MEDIASTINUM: Study is performed without IV contrast. Heart size normal. Coronary artery calcifications noted. Thoracic inlet unremarkable. No significant adenopathy. Small hiatal hernia again noted. PLEURA: There is no pleural effusion. No pleural mass or thickening. AXILLA: No lymphadenopathy. UPPER ABDOMEN: Unremarkable. OSSEOUS STRUCTURES: Degenerative changes observed in the thoracic spine. No fracture. CT/CT chest wo con IMPRESSION: Stable postoperative changes status post right upper lobe lobectomy. Fleischner guidelines were followed.
== END 2021-12-16 08:47 | disposition home or self-care (01) ==
LOC: HO.CT 08:46
PROVIDERS: PCP Internal Medicine; Visit Provider Surgery
DX: R91.8 Other nonspecific abnormal finding of lung field (principal)
CPT/HCPCS: 71250

== ENCOUNTER → 2021-12-19 08:26 | Outpatient (BNVA) | payer MEDICARE, SELFPAY | PROVIDERS: PCP Internal Medicine; Visit Provider Surgery | DX: C34.11 Malignant neoplasm of upper lobe, right bronchus or lung (principal); R91.8 Other nonspecific abnormal finding of lung field; Z79.899 Other long term (current) drug therapy; Z90.2 Acquired absence of lung [part of] | CPT/HCPCS: 99212 ==

== ENCOUNTER 2022-01-01 07:27 | Day surgery (SDC) | payer MEDICARE, SELFPAY ==
[2021-12-26 10:23] VITALS: BMI 27.1
--- NOTE | 2021-12-31 12:02 | HO.ANESPROP2 ---
Documented by User: Meg Martines NP 12/31/21 12:03 HPI - Anesthesia Eval Consult details Narrative: 81yo F for Bronchoscopy Fiberoptic s/p RUL-ectomy 08/2020 PMF Active Problems Active Problems: All Active Problems (Updated 12/12/21 @ 09:08 by Sheila Oh MD) Multiple pulmonary nodules (Acute) Lung cancer (Chronic) Primary cancer of right upper lobe of lung (Acute ~2019) Seasonal allergies (Acute) Hypertension (Acute) History of pneumonia (Acute) Past Medical History Medical History History of pneumonia Hypertension Osteopenia Primary cancer of right upper lobe of lung (~2019) Seasonal allergies Family History Family History Sister Liver transplant recipient Father Stroke Mother Diabetes mellitus Maternal Uncle Lung cancer Surgical History Surgical History H/O tubal ligation History of blepharoplasty (~07/17/14) History of bronchoscopy (~07/2020) History of chest tube placement (~09/27/20) History of rectal surgery S/P lobectomy of lung (~09/17/20) Social History Social History Household Members: None Housing: Apartment Do you presently have visiting nurse or other home services: No Patient Tobacco Use Status: Tobacco use Unknown Advance Directives: Yes Advance Directives Information Provided: Yes Advance Directives on File: Yes Advance Directives Date on File: 09/02/20 Meds Allergies Allergy/AdvReac Type Severity Reaction Status Date / Time moxifloxacin [From AVELOX] Allergy Unknown UNKNOWN Verified 01/01/22 08:02 multiple medication Allergy Unknown Unknown Uncoded 08/30/20 09:51 sensitivit Home Medications Medication Instructions Recorded Confirmed Last Taken Type amlodipine 10 mg tablet 10 mg PO DAILY 08/30/20 01/01/22 01/01/22 06:00 History polyethylene glycol 3350 17 17 g PO BID PRN 08/30/20 12/26/21 09/27/20 06:00 History gram/dose oral powder acetaminophen 325 mg tablet 650 mg PO Q6H PRN 09/27/20 12/26/21 09/27/20 07:30 History albuterol sulfate 90 mcg/actuation 90 mcg INHALATION DAILY PRN 09/27/20 12/26/21 09/27/20 07:30 History aerosol inhaler loratadine 10 mg tablet 10 mg PO DAILY 05/30/21 12/26/21 Unknown History diphenhydramine HCl 12.5 mg/5 mL 12.5 mg PO BEDTIME PRN 10/09/21 12/26/21 Unknown History oral liquid (Benadryl Allergy) Exam Exam Date and Time: December 31, 2021 1202 Height,Weight and Vital Signs: Height 5 ft Weight 63 kg Pertinent Lab Results Pertinent Lab Results: Laboratory Tests 10/09/21 10/09/21 09:26 09:26 WBC 6.4 Hgb 12.7 Hct 37.6 Plt Count 283 Sodium 135 Potassium 4.1 Chloride 99 Carbon Dioxide 31 H BUN 14 Creatinine 0.82 Assessment and Plan Assessment Anesthesia Assessment: Chart Reviewed Documented by User: Doni Abdi 01/01/22 10:38 HPI - Anesthesia Eval Consult details Narrative: 81yo F for Bronchoscopy Fiberoptic s/p RUL-ectomy 08/2020 post nasal drip PMFSH Past Medical History Medical History History of pneumonia Hypertension Osteopenia Primary cancer of right upper lobe of lung (~2019) Seasonal allergies Family History Family History Sister Liver transplant recipient Father Stroke Mother Diabetes mellitus Maternal Uncle Lung cancer Family history of problems with anesthesia: No Surgical History Surgical History H/O tubal ligation History of blepharoplasty (~07/17/14) History of bronchoscopy (~07/2020) History of chest tube placement (~09/27/20) History of rectal surgery S/P lobectomy of lung (~09/17/20) History of Problems with Anesthesia: No Social History Social History Household Members: None Housing: Apartment Do you presently have visiting nurse or other home services: No Patient Tobacco Use Status: Tobacco use Unknown Advance Directives: Yes Advance Directives Information Provided: Yes Advance Directives on File: Yes Advance Directives Date on File: 09/02/20 Meds Allergies Allergy/AdvReac Type Severity Reaction Status Date / Time moxifloxacin [From AVELOX] Allergy Unknown UNKNOWN Verified 01/01/22 08:02 multiple medication Allergy Unknown Unknown Uncoded 08/30/20 09:51 sensitivit Home Medications Medication Instructions Recorded Confirmed Last Taken Type amlodipine 10 mg tablet 10 mg PO DAILY 08/30/20 01/01/22 01/01/22 06:00 History polyethylene glycol 3350 17 17 g PO BID PRN 08/30/20 12/26/21 09/27/20 06:00 History gram/dose oral powder acetaminophen 325 mg tablet 650 mg PO Q6H PRN 09/27/20 12/26/21 09/27/20 07:30 History albuterol sulfate 90 mcg/actuation 90 mcg INHALATION DAILY PRN 09/27/20 12/26/21 09/27/20 07:30 History aerosol inhaler loratadine 10 mg tablet 10 mg PO DAILY 05/30/21 12/26/21 Unknown History diphenhydramine HCl 12.5 mg/5 mL 12.5 mg PO BEDTIME PRN 10/09/21 12/26/21 Unknown History oral liquid (Benadryl Allergy) Exam Airway Mallampati Class: III TM Dist: >3cm Neck ROM: Full Denture: Upper Partial: Lower Loose/Missing/Broken Teeth: Yes Heart: rrr Lungs: bl breath sounds Assessment and Plan Assessment Anesthesia Assessment: Anesthesia Plan Discussed Final Anesthetic Review Family History of Problems with Anesthesia: No History of Problems with Anesthesia: No NPO: Yes ASA Class: III Final Preanesthetic Review: Meds/Allgs Chart Reviewed, Consent Obtained/Reviewed and Anes Risks/Benef Reviewed Patient Risk: High Procedure Risk: Intermediate Anesthetic Plan Anesthetic Plan: GA Disposition: Standard PACU
[2022-01-01] VITALS (9 sets, daily range): BP systolic 122–166; BP diastolic 44–59; PULSE 60–77; RESP 16–20; TEMP 36.3–36.4; O2SAT 94–100
--- NOTE | ~2022-01-01 | XR_ITS ---
EXAMINATION: XR CHEST CLINICAL INFORMATION: Status post proximal COMPARISON: December 16, 2021 and February 18, 2021 TECHNIQUE: AP portable view of the chest was obtained. FINDINGS: Suture line is seen about the superior medial right lung with stable postsurgical findings from previous left upper lobectomy. There is mild atelectatic change at the left base. Heart normal size. No evidence of pulmonary edema. No pneumothorax or pleural effusion. XR/XR chest 1V IMPRESSION: Right lung post surgical change which is stable. No significant acute parenchymal disease.
--- NOTE | 2022-01-01 09:12 | MHC.SHP ---
Pre-Procedural Eval Section A Date of Service: 01/01/22 The patient is an INPATIENT: No Changes since office visit: No Cold of Flu in the past 2 weeks, No New Medical Problems, No Changes in Medication and No Patient answered all questions Section B Chief Complaint: solitary pulmonary nodule Relevant Family History (Specify if Yes): No Relevant Social History: None Present Medications: see Short Stay Collaborative assessment Medical History: Significant History (history of lung cancer with new pulmonary nodules) History of Previous Operations: Relevant previous surgery/procedure and date(s) Allergies: Allergies Allergy/AdvReac Type Severity Reaction Status Date / Time moxifloxacin [From AVELOX] Allergy Unknown UNKNOWN Verified 01/01/22 08:02 multiple medication Allergy Unknown Unknown Uncoded 08/30/20 09:51 sensitivit Review of Systems Sugical H&P ROS: Negative: Constitution, Cardiovascular, Respiratory, Neurological, Psychiatric, Hem-Onc, Allergic/Immunologic and Gastrointestinal Exam Surgical H&P Exam: Normal: HEENT, Normal: Heart, Normal: Lungs, Normal: Extremities, Normal: Abdomen, Normal: Skin and Normal: Neurological Plan Diagnosis/Plan: Unchanged I have reviewed the history and physical and performed a pertinent physical examination on my patient. No changes have occurred unless specified.
--- NOTE | 2022-01-01 13:07 | P.BOP_ITS ---
Brief Operative Note Date of Service: 01/01/22 Pre-op diagnosis: pulmonary nodules Post-op diagnosis: other (pulmonary nodules, abnormal RUL stump area, bronchitis) Procedure: Bronchosocpy with transbronchial biopsies, biopsies, brushings, washings Surgeon: Kory Cartwright MD Anesthesia: GETA Was an Dessert Cup Machine Feeder used for this Procedure?: No Estimated blood loss (mL): 1 Pathology: other (RLL sup seg transbronchial biopsy, BIN endobronchial biopsies, ) Condition: stable Disposition: same day
--- NOTE | 2022-01-01 23:48 | OP_ITS ---
SURGEON: Kory Cartwright MD PREOPERATIVE DIAGNOSIS: Pulmonary nodules. POSTOPERATIVE DIAGNOSIS: PROCEDURE PERFORMED: Bronchoscopy. ESTIMATED BLOOD LOSS: COMPLICATIONS: ANESTHESIA: Patient was intubated, received general anesthesia. ASSISTANTS: SPECIMENS: POSTOPERATIVE DIAGNOSES: Pulmonary nodules and endobronchial changes at the area of the right upper lobe and evidence of bronchitis. INDICATION: Pulmonary nodules. CONSENT: The patient was consented. Risks and benefits were discussed with the patient. Alternative options were also discussed. DESCRIPTION OF PROCEDURE: After the patient was adequately sedated and intubated with 7.5 ET tube, the flexible digital bronchoscope was inserted via the ET tube to the level of the main jovani. The main jovani appeared to be nice and crisp. After instilling 3 mL of 2% lidocaine, the bronchoscope was navigated into the entire tracheobronchial tree up to the subsegmental level. The patient did have mucoid secretions and mucus plugging bilaterally, left more than right. They were easily suctioned. It appears that the area of the stump appeared to have overgrown with tissue, appearing more of a mound. No obvious malignant changes seen in this abnormal pronounced area. Otherwise, no other endobronchial lesions or changes noted. No active bleeding noted. The bronchoscope was navigated to the right side where a cytologic brush was introduced to the right lung and brushed the abnormal stump area in the right mainstem bronchus and also the superior segment of the right lower lobe as well. Bronchial washings were also collected bilaterally. Using another brush, we introduced that into the superior segment of the right lower lobe and sent it for microbiology. The bronchoscope was navigated into the right mainstem bronchus where multiple endobronchial biopsies were done at the area of the stump where the area was more pronounced and that was placed in formalin. After that, opened up another formalin specimen cup and did collect some transbronchial biopsies from the superior segment of the right lower lobe where the nodular changes were identified. Those specimens were placed in the separate container and sent also to Pathology. Epinephrine was used 1 ampule with 1:1000 mixed in with iced saline with good hemostasis. No evidence of any bleeding at the end of the procedure. Patient also had an x-ray post procedure and that showed no pneumothorax. The bronchoscope time approximately 30 minutes. Patient tolerated the procedure well. Vital signs were stable throughout the procedure. She was able to be extubated and no evidence of any complications noted. INTERPRETATION: 1. Abnormal stump area with increased/pronounced endobronchial area, status post brushings and endobronchial biopsies. 2. Transbronchial biopsies in the right lower lobe superior segment. 68381, CPT code. 3. Brushings x2, one for cytology in the right mainstem bronchus and superior segment and second brush for microbiology from the superior segment of the right lower lobe. 4. Bronchial washings bilaterally for microbiology and cytology. Chest x-ray post procedure, no acute pneumothorax appreciated. MD MEL Dinero/BRANDI / [id number]
== END 2022-01-01 13:46 | disposition home or self-care (01) ==
PROVIDERS: PCP Internal Medicine; Visit Provider Hospitalist
PROC: 0BJ08ZZ Inspection of Tracheobronchial Tree, Via Natural or Artificial Opening Endoscopic (ICD-10-PCS; CPT 31622; principal; 2022-01-01 09:00)
DX: R91.8 Other nonspecific abnormal finding of lung field (principal); J40 Bronchitis, not specified as acute or chronic; Z85.118 Personal history of other malignant neoplasm of bronchus and lung; Z90.2 Acquired absence of lung [part of]; Z98.890 Other specified postprocedural states
CPT/HCPCS: 31628; 31632; 31623; 31625; 71045; 87071; 87077; 87102; 87116; 87185; 87205; 88112; 88305; J0171; J1100; J2405; J3010

== ENCOUNTER → 2022-01-16 08:28 | Outpatient (BNVA) | payer MEDICARE, SELFPAY | PROVIDERS: PCP Internal Medicine; Visit Provider Hospitalist | DX: C34.11 Malignant neoplasm of upper lobe, right bronchus or lung (principal); C34.90 Malignant neoplasm of unspecified part of unspecified bronchus or lung; R91.8 Other nonspecific abnormal finding of lung field | CPT/HCPCS: 99212 ==

== ENCOUNTER 2022-03-05 08:10 | Outpatient (REF) | payer OTHER, SELFPAY ==
--- NOTE | ~2022-03-05 | XR_ITS ---
EXAMINATION: XR CHEST CLINICAL INFORMATION: Cough COMPARISON: Chest radiographs 01/01/2022, 02/18/2021 TECHNIQUE: 2 views of the chest were obtained. FINDINGS: There is mild hyperinflation. The lungs are clear. There is no airspace consolidation or groundglass opacity or effusion. Postsurgical changes with fine chain gary again noted medial right suprahilar region. The vascularity is normal. The heart is normal in size. The hilar and mediastinal contours and visualized bony structures are unremarkable. XR/XR chest 2V IMPRESSION: No acute intrathoracic disease.
== END 2022-03-05 08:11 | disposition home or self-care (01) ==
LOC: HO.XRAY 08:10
PROVIDERS: Absent Provider Internal Medicine; PCP Internal Medicine; Visit Provider Family Medicine
DX: R05.9 Cough, unspecified (principal)
CPT/HCPCS: 71046

== ENCOUNTER 2022-04-13 08:42 | Outpatient (REF) | payer OTHER, SELFPAY ==
--- NOTE | ~2022-04-13 | MM_ITS ---
EXAMINATION: MM SCREENING DIGITAL BREAST TOMOSYNTHESIS, BILATERAL CLINICAL INFORMATION: Screening. Asymptomatic. The lifetime risk of breast cancer based on the Tyrer-Cuzick Model is 2%. COMPARISON: Mammography: 04/09/2021, 02/09/2019, 01/21/2018 TECHNIQUE: Digital breast tomosynthesis is performed in both the craniocaudal and mediolateral oblique views along with computer-aided detection (CAD). Synthesized 2D images are generated from the tomosynthesis. FINDINGS: There are scattered areas of fibroglandular density (ACR BI-RADS breast composition Category b). There are no significant masses, abnormal calcifications, or other abnormalities. Breast tissue composition borders on predominantly fatty. Background stromal markings are stable. The axilla are and skin contours are unremarkable. MM/MM tomosynthesis screening BI IMPRESSION: No mammographic evidence of malignancy. ASSESSMENT: BI-RADS 1: Negative RECOMMENDATION: Routine annual mammography screening. This patient's information was entered into a reminder system with a target due date for their next mammogram.
== END 2022-04-13 08:43 | disposition home or self-care (01) ==
LOC: HO.MAMMO 08:42
PROVIDERS: Visit Provider Internal Medicine
DX: Z12.31 Encounter for screening mammogram for malignant neoplasm of breast (principal)
CPT/HCPCS: 77063; 77067

== ENCOUNTER 2022-05-15 07:28 | Outpatient (REF) | payer OTHER, SELFPAY ==
--- NOTE | ~2022-05-15 | CT_ITS ---
EXAMINATION: CT CHEST WITH CONTRAST CLINICAL INFORMATION: Malignant neoplasm of lung. Rule out recurrence. COMPARISON: Previous chest x-ray most recent February [address] November 2021 TECHNIQUE: Multidetector volumetric CT imaging of the chest was obtained after the administration of 65 mL of Omnipaque 350 intravenous contrast without immediate adverse reactions. Axial MIP volume rendering provided. Sagittal and coronal reformatted images were obtained. This CT examination was performed using dose optimization techniques as appropriate, variously including the following: *Automated exposure control *Adjustment of mA and/or kV according to patient size (this includes techniques or standardized protocols for targeted exams where dose is matched to indication/reason for exam; i.e. extremities or head) *Use of iterative reconstruction technique DLP: 124 mGy-cm FINDINGS: LUNGS: There are stable postsurgical changes from right upper lobe lobectomy. There is scarring or chronic subsegmental atelectasis seen in the medial right middle lobe adjacent to the surgical staple line. There are clustered semisolid right lower lobe nodules. These do not appear appreciably changed from November 2021 exam. There is bronchial wall thickening and bronchial soft tissue opacification seen in the left lower lobe and areas of mild focal bronchiectasis. This appears unchanged. No new pulmonary nodule is seen. MEDIASTINUM: There are small mediastinal lymph nodes. No enlarged hilar or mediastinal lymph nodes are seen. There is coronary artery calcification. Heart size is normal. The thoracic aorta is normal in caliber. PLEURA: There is no pleural effusion. No pleural mass or thickening. AXILLA: No lymphadenopathy. UPPER ABDOMEN: There is a cystic lesion in the neck of the pancreas. This measures 1.3 x 2 cm axial image 63 series 3 and does not appear appreciably changed. OSSEOUS STRUCTURES: Unremarkable. CT/CT chest w con IMPRESSION: Stable postsurgical changes from right upper lobe lobectomy. Stable clustered semisolid right lower lobe nodules. Infectious, inflammatory and neoplastic process considered. Stable airways disease with bronchial wall thickening and mucus plugging in the right lower lobe. Stable cystic lesion in the neck of the pancreas. Fleischner guidelines were followed.
[2022-05-15] MEDS: iohexoL 350 MG/ML 100 ML INFUS..BTL IV (08:17)
== END 2022-05-15 07:29 | disposition home or self-care (01) ==
LOC: HO.CT 07:28
PROVIDERS: PCP Internal Medicine; Visit Provider Internal Medicine
DX: C34.90 Malignant neoplasm of unspecified part of unspecified bronchus or lung (principal)
CPT/HCPCS: 71260; Q9967

== ENCOUNTER → 2022-05-22 08:03 | Outpatient (REF) | payer OTHER, SELFPAY | LOC: HO.CARD 08:03 | PROVIDERS: PCP Internal Medicine; Visit Provider Internal Medicine | DX: Z13.89 Encounter for screening for other disorder (principal) ==

== ENCOUNTER 2022-05-27 09:07 | Outpatient (REF) | payer OTHER, SELFPAY ==
--- NOTE | 2022-05-22 08:13 | CA_ITS ---
Transthoracic Echocardiogram Patient (Last, First, Middle): Elda Vogt, Gender: Female Date of : 1940 Age: 81 Procedure Date: 05/22/2022 Procedure Type: Transthoracic Echocardiogram Location: OP Height: 147.32 cm Weight: 63.96 kg BSA: 1.57 m2 Heart Rate: 82 bpm BP: 132 / 68 mmHg Banking Analyst: PIYUSH Referring MD: Erlin Kuo Learning Disabilities Resource Teacher: Raghavendra Shi MD Symptoms: SYNCOPE AND COLLAPSE Study Quality: Adequate ECG Rhythm: Sinus Conclusions: - 1. Normal LV systolic function with impaired relaxation filling pattern 2. Normal cardiac valvular Doppler 3. No gross pericardial effusion Findings Left Ventricle Normal left ventricular size, thickness, and systolic function. The visually estimated ejection fraction is between 60-65%. Spectral Doppler is indicative of an impaired relaxation filling pattern. E/E prime ratio is between 8 and 15 consistent with indeterminate filling pressures. Peak GLS is -17.4%, within normal limits. Right Ventricle Normal right ventricular cavity size and systolic function. Atria The left atrium is normal in size. There is lipomatous hypertrophy of the interatrial septum. Interatrial shunt cannot be excluded. The right atrium is normal in size. Aortic Valve The aortic valve structure and function is likely normal. There is no aortic valve stenosis. There is no aortic valve regurgitation. Mitral Valve Likely normal mitral valve structure and function. There is trace mitral valve regurgitation. There is no mitral valve stenosis. Pulmonic Valve The pulmonic valve was not well visualized. Tricuspid Valve The tricuspid valve was not well visualized. Tricuspid regurgitation envelope is inadequate for calculation of right ventricular systolic pressure. Normal right atrial pressure. Great Vessels All visible segments of the aorta are normal in size. The pulmonary artery was not well visualized. Venous The inferior vena cava is normal in size and collapses greater than 50% with inspiration. Pericardium/Pleural There is no evidence of pericardial effusion. Measurements 2D Linear Measurements IVSd: 1.13 0.6-0.9/0.6-1.0 cm LVIDd: 3.70 3.9-5.3/4.2-5.9 cm LVIDd Index: 2.36 2.4-3.2/2.2-3.1 cm/m2 LVIDs: 1.99 2.0-3.6 cm LVPWd: 0.88 0.7-1.1 cm LA Diam: 2.90 2.7-3.8/3.0-4.0 cm LAIDs Index: 1.85 1.5-2.3 cm/m2 LV Mass: 140.63 67-162/88-224 g LV Mass Index: 89.57 43-95/49-115 g/m2 LVOT Diam: 1.90 3.0+(-)1.3 cm 2D Systolic Function EF 4C: 50.50 >55% Mitral Valve MV Pk E: 0.64 MV PK A: 1.03 MV Decel Time: 243.00 E/A: 0.60 E'Lateral: 5.87 E'Medial: 3.70 E/E' Med: 17.40 E/E' Lat: 11.00 PHT: 71.00 MVA PHT: 3.10 Decel [place]: 2.65 Aortic Valve AoV Pk Johan: 1.47 AoV Mn Johan: 1.00 AoV VTI: 0.30 AoV Pk Grad: 9.00 Aov Mn Grad: 4.00 DONA Cont.VTI: 2.31 LVOT LVOT Pk Johan: 1.16 LVOT Mn Johan: 0.78 LVOT VTI: 0.25 LVOT Pk Grad: 5.00 LVOT Mn Grad: 3.00 LVOT Diam: 1.90 LVOT Area: 2.84 Diastolic Function MV Pk E: 0.64 MV Pk A: 1.03 E/A: 0.60 E'Medial: 3.70 E/E' Med: 17.40 E' Laterial: 5.87 E/E' Lat: 11.00 Right Ventricle TAPSE (mm): 20.80 TVS' Johan: 11.20 Tricuspid Valve RA Press: 3.00 Great Vessels Aorta Sinus of Valsalva: 2.40 2.0-3.5 cm Ao Asc: 2.50 2.1-3.4 cm Pulmonary Valve PV Pk Johan: 1.06 Peak PV Grad: 4.00 Updated in Other Vendor System with Status of Final Raghavendra Shi MD electronically signed on 05/23/2022 1:57:15 PM with status of Final
--- NOTE | ~2022-05-27 | MR_ITS ---
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 FINDINGS: LUNG BASES: The visualized lung bases are unremarkable. KIDNEYS AND URETERS: Unremarkable. GALLBLADDER: Unremarkable. LIVER AND BILIARY TREE: Loss of signal on opposed phase imaging compatible with hepatic steatosis. No suspicious liver lesion. No intra or extrahepatic biliary duct dilatation. PANCREAS: Main pancreatic duct is dilated to 7 mm, previously measuring 2 mm. There is a nondilated accessory pancreatic duct communicating with the main pancreatic duct draining into the minor papilla. 2.4 x 2.5 cm multiloculated cystic lesion centered in the pancreatic neck, previously 2.1 x 1.9 cm, which does not clearly appear to communicate with the main pancreatic duct. Additional small more discrete cysts in the pancreatic body measuring 5 mm, previously 5 mm and 1.0 cm, previously 1.1 cm are not significantly changed in size. SPLEEN: Unremarkable ADRENAL GLANDS: Similar fullness of the left adrenal gland without discrete nodule. Right adrenal gland is unremarkable. GASTROINTESTINAL TRACT: Small hiatal hernia. Diverticulosis without evidence of diverticulitis. LYMPH NODES: No lymphadenopathy. VASCULAR: Unremarkable ABDOMINAL WALL: Unremarkable. OSSEOUS STRUCTURES: Unremarkable. MR/MR abdomen wo/w con IMPRESSION: Increase in size of a 2.5 cm multiloculated cystic lesion centered in the pancreatic neck with new dilation of the main pancreatic duct to 7 mm. This does not clearly communicate with the main pancreatic duct. Given the increase in size and new pancreatic duct dilatation recommend GI referral for consideration of endoscopic ultrasound and aspiration and consider surgical consultation. Additional smaller cystic lesions in the pancreatic body and neck measuring up to 1.0 cm are not significantly changed in size. Hepatic steatosis.
== END 2022-05-27 09:08 | disposition home or self-care (01) ==
LOC: HO.MRI 09:07
PROVIDERS: Visit Provider Internal Medicine
DX: K86.2 Cyst of pancreas (principal); D49.0 Neoplasm of unspecified behavior of digestive system
CPT/HCPCS: 74183; 93306; 93356; A9585

== ENCOUNTER → 2022-06-12 08:35 | Outpatient (BNVA) | payer OTHER, SELFPAY | PROVIDERS: PCP Internal Medicine; Visit Provider Surgery | DX: R91.8 Other nonspecific abnormal finding of lung field (principal); C34.11 Malignant neoplasm of upper lobe, right bronchus or lung | CPT/HCPCS: 99212 ==

== ENCOUNTER 2022-12-22 07:45 | Outpatient (REF) | payer OTHER, SELFPAY ==
--- NOTE | ~2022-12-22 | PE_ITS ---
EXAMINATION: Fluorine-18 FDG PET/CT Scan CLINICAL INDICATION: Subsequent treatment management. Personal history of right upper lobar lung carcinoma, status post lobectomy and rising CEA. PROCEDURE: 55 minutes following the intravenous administration of 16.1 mCi of fluorine 18 FDG, images from the base of the skull to the mid thighs were obtained using a combined PET/CT scanner with CT scan based attenuation correction. No intravenous contrast was administered. Transverse, coronal, sagittal, and volume reconstruction projections were obtained. The patient's blood glucose as determined by a finger stick, was 107 mg/dl immediately prior to injection. The radiotracer was injected intravenously through right antecubital superficial vein, without any complications. Total CT exam dose-length product 361.76 mGy-cm * These CT images were obtained using dose optimization techniques as appropriate, variously including the following: Automated exposure control * Adjustment of mA and/or kV according to patient size (this includes techniques or standardized protocols for targeted exams where dose is matched to indication/reason for exam; i.e. extremities or head) * Use of iterative reconstruction technique COMPARISON: CT of the chest done on 05/15/2022. MRI of the abdomen done on 05/27/2022. FINDINGS: NECK AND VISUALIZED HEAD: No FDG avid disease. THORAX: Postsurgical changes of right upper lobar lung lobectomy. Previously documented confluent irregular peribronchiolar multifocal nodular disease involving right lower lobe of the lung extending from the level of the arch of the aorta inferiorly to the level of the right pulmonary artery do not show any FDG avidity, given the difference in technique, overall appear minimally progressed since the most recent prior CT of the chest done on 05/15/2022. No evidence of any FDG avid mediastinal and/or hilar lymphadenopathy. No FDG avid pleural or pericardial effusion. Asymmetric left hemithoracic FDG avidity is secondary to left chest wall muscular activity. ABDOMEN AND PELVIS: No FDG avid disease within the liver, spleen or both adrenal glands. Previously documented complex cystic pancreatic mass (better visualized on prior MRI of the abdomen dated 05/27/2022) does not show any FDG avidity. There are no peripancreatic FDG avid lymphadenopathy or fluid collection. No FDG avid bowel disease. Small sliding hiatal hernia. Bladder is unremarkable. Physiologic radiotracer activities are present within the kidneys and the bladder. MUSCULOSKELETAL: No suspicious FDG avid osseous disease. VASCULAR: Calcific atherosclerotic disease of the aorta and its branches including significant coronary artery calcifications. No evidence of aneurysm. PET/PET CT fusion skull to thigh IMPRESSION: 1. Previously documented, clinically known confluent peribronchiolar nodular disease involving the right lower lobe of the lung appears slightly more pronounced since the prior most recent study dated 05/15/2022 however do not show any FDG avidity. No evidence of any FDG avid mediastinal or hilar lymphadenopathy or features suggestive of local disease recurrence at the site of prior right upper lobar lung lobectomy (from lung cancer). 2. Previously documented complex cystic mass involving the pancreas does not show any FDG avidity, better visualized on prior MRI of the abdomen dated 05/27/2022. 3. No FDG avid disease within the liver to suspect metastasis. 4. Calcific atherosclerotic disease of the aorta and its branches including coronary artery calcifications. 5. No suspicious FDG avid osseous disease.
== END 2022-12-22 07:46 | disposition home or self-care (01) ==
LOC: HO.PET 07:45
PROVIDERS: Visit Provider Internal Medicine
DX: Z13.89 Encounter for screening for other disorder (principal)

== ENCOUNTER → 2022-12-25 09:34 | Outpatient (BNVA) | payer OTHER, SELFPAY | PROVIDERS: PCP Internal Medicine; Visit Provider Surgery | DX: C34.11 Malignant neoplasm of upper lobe, right bronchus or lung (principal); R91.8 Other nonspecific abnormal finding of lung field | CPT/HCPCS: 99212 ==

== ENCOUNTER → 2023-01-05 08:36 | Outpatient (BNVA) | payer OTHER, SELFPAY | PROVIDERS: PCP Internal Medicine; Visit Provider Hospitalist | DX: C34.11 Malignant neoplasm of upper lobe, right bronchus or lung (principal); R91.8 Other nonspecific abnormal finding of lung field | CPT/HCPCS: 99212 ==

== ENCOUNTER 2023-01-14 06:04 | Day surgery (SDC) | payer OTHER, SELFPAY ==
[2023-01-14 06:49] VITALS: BP 139/60; PULSE 68; RESP 18; TEMP 36.2; O2SAT 96
[2023-01-14 06:51] VITALS: BMI 27.3
--- NOTE | 2023-01-14 07:16 | HO.ANESPROP2 ---
HPI - Anesthesia Eval Consult details Narrative: Lunng CA, bronchoscopy PMFSH Active Problems Active Problems: All Active Problems (Updated 02/13/22 @ 15:42 by Jodee Spicer MD) Multiple pulmonary nodules (Acute) Lung cancer (Chronic) Primary cancer of right upper lobe of lung (Acute ~2019) Seasonal allergies (Acute) Hypertension (Acute) History of pneumonia (Acute) Past Medical History Medical History History of pneumonia Hypertension Osteopenia Primary cancer of right upper lobe of lung (~2019) Seasonal allergies Family History Family History Sister Liver transplant recipient Father Stroke Mother Diabetes mellitus Maternal Uncle Lung cancer Family history of problems with anesthesia: No Surgical History Surgical History H/O tubal ligation History of blepharoplasty (~07/17/14) History of bronchoscopy (~07/2020) History of chest tube placement (~09/27/20) History of rectal surgery S/P lobectomy of lung (~09/17/20) History of Problems with Anesthesia: No Social History Social History Household Members: None Housing: Apartment Do you presently have visiting nurse or other home services: No Patient Tobacco Use Status: Former Tobacco user Quit Date: age 30 Use of substances other than those prescribed or required for medical reasons: No Are you DNR?: No Advance Directives: Yes Advance Directives on File: Yes Advance Directives Date on File: 09/02/20 Meds Allergies Allergy/AdvReac Type Severity Reaction Status Date / Time moxifloxacin [From AVELOX] Allergy Unknown UNKNOWN Verified 01/05/23 09:12 multiple medication Allergy Unknown Unknown Uncoded 01/05/23 09:12 sensitivit Home Medications Medication Instructions Recorded Confirmed Last Taken Type amlodipine 10 mg tablet 10 mg PO DAILY 08/30/20 01/14/23 01/01/22 06:00 History polyethylene glycol 3350 17 17 g PO BID PRN constipation 08/30/20 01/14/23 09/27/20 06:00 History gram/dose oral powder acetaminophen 325 mg tablet 650 mg PO Q6H PRN Pain 09/27/20 01/14/23 09/27/20 07:30 History loratadine 10 mg tablet 10 mg PO DAILY 05/30/21 01/14/23 Unknown History albuterol sulfate 90 mcg/actuation 2 puff inhalation Q4-6H PRN 01/05/23 01/14/23 Unknown History aerosol inhaler (Ventolin HFA) shortness of breath omeprazole 20 mg capsule,delayed 20 mg PO BID 01/05/23 01/14/23 Unknown History release Exam Exam Date and Time: January 14, 2023 0716 Height,Weight and Vital Signs: Height 5 ft Weight 63.503 kg Last Vital Signs Temp 97.1 F 01/14/23 06:49 Pulse 68 01/14/23 06:49 Resp 18 01/14/23 06:49 BP 139/60 01/14/23 06:49 Pulse Ox 96 01/14/23 06:49 O2 Del Method 01/14/23 06:49 Airway Mallampati Class: II TM Dist: >3cm Neck ROM: Limited Heart: rrr Lungs: cta Assessment and Plan Assessment Anesthesia Assessment: Anesthesia Plan Discussed and Chart Reviewed Final Anesthetic Review Family History of Problems with Anesthesia: No History of Problems with Anesthesia: No NPO: Yes ASA Class: IV Final Preanesthetic Review: No Changes in Pt Med Stat, Meds/Allgs Chart Reviewed and Anes Risks/Benef Reviewed Patient Risk: Intermediate Procedure Risk: Intermediate Anesthetic Plan Anesthetic Plan: GA Disposition: Standard PACU
--- NOTE | 2023-01-14 08:08 | MHC.SHP ---
Pre-Procedural Eval Section A Date of Service: 01/14/23 The patient is an INPATIENT: No Changes since office visit: No Cold of Flu in the past 2 weeks, No New Medical Problems, No Changes in Medication and No Patient answered all questions Section B Chief Complaint: Solitary pulmonary nodule Allergies: Allergies Allergy/AdvReac Type Severity Reaction Status Date / Time moxifloxacin [From AVELOX] Allergy Unknown UNKNOWN Verified 01/05/23 09:12 multiple medication Allergy Unknown Unknown Uncoded 01/05/23 09:12 sensitivit Plan I have reviewed the history and physical and performed a pertinent physical examination on my patient. No changes have occurred unless specified. Time Spent With Patient Time: Total time managing care of this patient today ____ minutes.
[2023-01-14 08:48] VITALS: BP 105/71; PULSE 74; RESP 16; TEMP 36.3; O2SAT 97
[2023-01-14 08:53] VITALS: BP 144/58; PULSE 67; RESP 16; O2SAT 96
[2023-01-14 08:58] VITALS: BP 142/54; PULSE 66; RESP 16; O2SAT 94
[2023-01-14 09:03] VITALS: BP 147/66; PULSE 65; RESP 16; TEMP 36.3; O2SAT 96
[2023-01-14 09:18] VITALS: BP 155/53; PULSE 62; RESP 16; TEMP 36.1; O2SAT 96
--- NOTE | 2023-01-14 10:36 | PM.OP ---
Brief Operative Note Date of Service: 01/14/23 Pre-op diagnosis: pulmonary nodules Post-op diagnosis: same Procedure: bronchoscopy with washings, brusings, biopsies Implants: Surgeon: Kory Cartwright MD Anesthesia: GLMA Was an Steward/Stewardess Smoke Room used for this Procedure?: No Estimated blood loss (mL): 0 Pathology: other (right sided biopsies) Condition: stable Disposition: same day
--- NOTE | 2023-01-14 12:49 | OP_ITS ---
SURGEON: Kory Cartwright MD PREOPERATIVE DIAGNOSIS: Pulmonary nodules , lung cancer. POSTOPERATIVE DIAGNOSIS:same PROCEDURE PERFORMED:Bronchoscopy with washings, brushings, biopsies ESTIMATED BLOOD LOSS:none COMPLICATIONS:none ANESTHESIA: LMA. ASSISTANTS: SPECIMENS: ASA: 2. HEEL ATTACHER WOOD: None. DESCRIPTION OF PROCEDURE: After the patient was adequately sedated, the flexible digital bronchoscope was inserted with the LMA to the level of the vocal cords. The vocal cords moved symmetrically to the midline. She did have some slight prolongation with vocal cords were closed suggesting some degree of sleep apnea, but she did well otherwise. After instilling lidocaine, the bronchoscope was then passed to vocal cord to the level of the trachea. Trachea mucosa appeared normal. The patient did have tenacious, thick, clear mucus. Difficult to suction. This was bilateral, moderate in amount. Therapeutic clean was provided. The right-sided airways were abnormal secondary to her surgical changes. She also has some friability and some erythema of mucosa suggesting some degree of bronchitis. The bronchoscope was navigated to the right side where a micro brushings and cytologic brushes introduced and sent to appropriate location. Bronchial washings were collected. She did have some abnormal areas of the mucosa. Therefore, endobronchial biopsies were collected to rule out the possibility of progression of the cancer. The biopsies were collected without any difficulties and no evidence of any active bleeding with good spontaneous hemostasis. Overall, the airways were cleaned and no other lesions noted. The bronchoscope was then moved and total endoscopic time approximately 15 minutes. Patient tolerated the procedure well, vital signs were stable throughout the procedure. MD MEL Dinero/BRANDI / [phone] [facility]
== END 2023-01-14 10:15 | disposition home or self-care (01) ==
PROVIDERS: PCP Internal Medicine; Visit Provider Hospitalist
PROC: 0BJ08ZZ Inspection of Tracheobronchial Tree, Via Natural or Artificial Opening Endoscopic (ICD-10-PCS; CPT 31622; principal; 2023-01-14 08:00)
DX: R91.8 Other nonspecific abnormal finding of lung field (principal); Z85.118 Personal history of other malignant neoplasm of bronchus and lung; Z90.2 Acquired absence of lung [part of]; R07.89 Other chest pain; R06.2 Wheezing; I10 Essential (primary) hypertension; Z79.899 Other long term (current) drug therapy; Z88.1 Allergy status to other antibiotic agents; Z87.891 Personal history of nicotine dependence; Z87.01 Personal history of pneumonia (recurrent)
CPT/HCPCS: 31628; 31623; 87070; 87116; 87205; 87206; 88112; 88305; J0171; J1100; J2405

== ENCOUNTER → 2023-01-28 09:16 | Outpatient (BNVA) | payer OTHER, SELFPAY | PROVIDERS: PCP Internal Medicine; Visit Provider Hospitalist | DX: R91.8 Other nonspecific abnormal finding of lung field (principal); C34.90 Malignant neoplasm of unspecified part of unspecified bronchus or lung; C34.11 Malignant neoplasm of upper lobe, right bronchus or lung; G89.12 Acute post-thoracotomy pain | CPT/HCPCS: 99212 ==

== ENCOUNTER 2023-03-26 09:25 | Outpatient (REF) | payer OTHER, SELFPAY ==
--- NOTE | ~2023-03-26 | XR_ITS ---
EXAMINATION: XR HIP, LEFT CLINICAL INFORMATION: Hip pain COMPARISON: None available. TECHNIQUE: Two views of the left hip. FINDINGS: Bones and soft tissues are normal. No fracture. Alignment is anatomic. Hip joint space is maintained. XR/XR hip LT min 2V IMPRESSION: Normal left hip.
--- NOTE | ~2023-03-26 | XR_ITS ---
EXAMINATION: XR LUMBOSACRAL SPINE CLINICAL INFORMATION: Hip pain COMPARISON: Previous x-ray April 2014 TECHNIQUE: Three views of the lumbosacral spine. FINDINGS: There is mild 2 mm anterior subluxation of L4 with respect L5. Bone alignment is otherwise normal. No fracture or dislocation. Degenerative disc disease and spondylosis at L2-L3 L3-L4 and L5-S1. Lower lumbar spine facet arthritis. Atherosclerotic disease. XR/XR lumbar spine 2-3V IMPRESSION: Multilevel degenerative changes.
== END 2023-03-26 09:26 | disposition home or self-care (01) ==
LOC: HO.XRAY 09:25
PROVIDERS: Visit Provider Family Medicine
DX: M25.552 Pain in left hip (principal); M51.36 Other intervertebral disc degeneration, lumbar region
CPT/HCPCS: 72100; 73502

== ENCOUNTER 2023-04-28 09:14 | Outpatient (REF) | payer OTHER, SELFPAY ==
--- NOTE | ~2023-04-28 | MM_ITS ---
EXAMINATION: MM SCREENING DIGITAL BREAST TOMOSYNTHESIS, BILATERAL CLINICAL INFORMATION: Screening. Asymptomatic. The lifetime risk of breast cancer based on the Tyrer-Cuzick Model is 1%. COMPARISON: Multiple prior mammography exams including most recent 04/13/2022. TECHNIQUE: Digital breast tomosynthesis is performed in both the craniocaudal and mediolateral oblique views along with computer-aided detection (CAD). Synthesized 2D images are generated from the tomosynthesis. FINDINGS: There are scattered areas of fibroglandular density (ACR BI-RADS breast composition Category b). Right CC tomography has small asymmetric density posterior medial breast approximately 8 cm from nipple questionably more conspicuous from prior studies. Patient will be recalled to obtain additional views to fully characterize. The remainder of the bilateral breasts show no developing density or interval mass or architectural abnormality. No abnormal calcifications. The axilla and skin contours are unremarkable. MM/MM tomosynthesis screening BI IMPRESSION: Right: -Small asymmetric density posterior medial breast questionably more conspicuous. Left: -No mammographic evidence of malignancy. ASSESSMENT: BI-RADS 0: Incomplete - Need Additional Imaging Evaluation RECOMMENDATION: 1. Additional views right breast (spot cleavage, ML). 2. Targeted ultrasound if warranted after review of the additional views. 3. Radiology department staff will contact the patient for additional imaging. This patient's information was entered into a reminder system with a target due date for their next mammogram.
== END 2023-04-28 09:15 | disposition home or self-care (01) ==
LOC: HO.MAMMO 09:14
PROVIDERS: PCP Internal Medicine; Visit Provider Internal Medicine
DX: Z12.31 Encounter for screening mammogram for malignant neoplasm of breast (principal)
CPT/HCPCS: 77063; 77067

== ENCOUNTER → 2023-05-05 08:32 | Outpatient (BNVA) | payer OTHER, SELFPAY | PROVIDERS: PCP Internal Medicine; Visit Provider Hospitalist | DX: A31.9 Mycobacterial infection, unspecified (principal); R91.8 Other nonspecific abnormal finding of lung field; G89.12 Acute post-thoracotomy pain; C34.11 Malignant neoplasm of upper lobe, right bronchus or lung; Z90.2 Acquired absence of lung [part of] | CPT/HCPCS: 99212 ==

== ENCOUNTER 2023-06-21 08:44 | Outpatient (REF) | payer OTHER, SELFPAY ==
--- NOTE | ~2023-06-21 | US_ITS ---
EXAMINATION: MM DIAGNOSTIC DIGITAL BREAST TOMOSYNTHESIS, RIGHT CLINICAL INFORMATION: Recommended mammographic imaging of the right breast asymmetry noted on screening mammography from 04/28/2023. COMPARISON: Mammography: This study is compared with multiple prior exams dating back to 2019. TECHNIQUE: Digital breast tomosynthesis is performed. 2D images are generated from the tomosynthesis. The following views are obtained: A full lateral view of the right breast and spot compression of the right breast in the CC projection. FINDINGS: MAMMOGRAM: There are scattered areas of fibroglandular density (ACR BI-RADS breast composition Category b). Additional views from the medial the located asymmetry show no persistent abnormality. There is no mammographic signs of malignancy. ULTRASOUND: Sonography of the right breast 2-5:00 region, the location of the mammographic asymmetry, reveals no discrete abnormality. Results are provided to the patient at time of visit by the technologist. US/US breast RT limited mamm only IMPRESSION: No mammographic or sonographic evidence of malignancy. ASSESSMENT: BI-RADS BI-RADS 1 - Negative RECOMMENDATION: 1 year F/U This patient's information was entered into a reminder system with a target due date for their next mammogram.
== END 2023-06-21 08:45 | disposition home or self-care (01) ==
LOC: HO.MAMMO 08:44
PROVIDERS: PCP Internal Medicine; Visit Provider Internal Medicine
DX: R92.2 Inconclusive mammogram (principal)
CPT/HCPCS: 76642; 77061; 77065

== ENCOUNTER → 2023-06-21 09:00 | Outpatient (BNV) | payer OTHER, SELFPAY | PROVIDERS: PCP Internal Medicine; Visit Provider Radiology Diagnostic Radiology | DX: R92.2 Inconclusive mammogram (principal) | CPT/HCPCS: 76642; 77065 ==

== ENCOUNTER 2023-07-16 09:23 | Outpatient (REF) | payer OTHER, SELFPAY ==
--- NOTE | ~2023-07-16 | MR_ITS ---
EXAMINATION: MR LUMBAR SPINE WITHOUT AND WITH CONTRAST CLINICAL INFORMATION: Chronic left-sided lower back pain, history of lung cancer COMPARISON: None available. TECHNIQUE: MRI of the lumbar spine was obtained using routine sequences with and without contrast. Intravenous contrast: Gadavist 6.5 mL FINDINGS: Grade 1 anterolisthesis of L4 on L5. No suspicious marrow signal or focal osseous lesion. The vertebral body heights are maintained. Mild multilevel disc desiccation and height loss. The conus medullaris terminates at the level of L1-L2. The distal spinal cord is normal in appearance. The cauda equina nerve roots appear normal. No abnormal intradural enhancement. There is mild edema of the left paravertebral musculature at L5-S1. There is atrophy of the right psoas muscle. Limited evaluation of the intra-abdominal structures without significant abnormalities. The abdominal aorta is of normal contour and caliber. SPINAL LEVELS: L1-L2: No significant spinal canal or neuroforaminal narrowing. L2-L3: Shallow disc bulge and mild facet arthropathy. No significant central spinal canal stenosis. Mild to moderate bilateral neural foraminal narrowing. L3-L4: Mild facet arthropathy. Shallow disc bulge. No significant central spinal canal stenosis. Mild to moderate bilateral neural foraminal narrowing. No significant central spinal canal stenosis. L4-L5: Severe facet arthropathy. Ligamentum flavum thickening. Anterolisthesis with posterior disc uncovering. No significant central spinal canal stenosis. Bilateral subarticular zone effacement with mass effect on the traversing L5 nerve roots. Mild to moderate bilateral neural foraminal narrowing L5-S1: Right greater than left facet arthropathy. There is possible extraforaminal impingement of the left L5 nerve root by a left lateral disc osteophyte complex. No significant spinal canal or neural foraminal narrowing MR/MR lumbar spine wo/w con IMPRESSION: 1. At L4-L5, there is grade 1 anterolisthesis on the basis of severe facet arthropathy with resultant bilateral subarticular zone effacement and mass effect on the traversing L5 nerve roots. There is also mild to moderate bilateral neural foraminal narrowing at this level. 2. At L5-S1, there is possible extraforaminal impingement of the left L5 nerve root by a left lateral disc osteophyte complex. 3. Additional mild degenerative changes of the lumbar spine as detailed above. No significant central spinal canal stenosis. Mild to moderate bilateral neural foraminal narrowing at L2-L3 and L3-L4. 4. Mild edema of the left paravertebral musculature at L5-S1 which may reflect muscular strain or sequela of denervation. There is also atrophy of the right psoas muscle. 5. No evidence of metastatic disease in the lumbar spine.
[2023-07-16] MEDS: gadobutroL 7.5 ML VIAL IVPUSH (10:20)
== END 2023-07-16 09:24 | disposition home or self-care (01) ==
LOC: HO.MRI 09:23
PROVIDERS: PCP Internal Medicine; Visit Provider Internal Medicine
DX: M54.50 Low back pain, unspecified (principal); G89.29 Other chronic pain
CPT/HCPCS: 72158; A9585

== ENCOUNTER 2023-07-27 08:45 | Outpatient (REF) | payer OTHER, SELFPAY ==
--- NOTE | ~2023-07-27 | CT_ITS ---
EXAMINATION: CT CHEST WITHOUT CONTRAST CLINICAL INFORMATION: Lung cancer COMPARISON: Previous chest CT April 2022 and PET/CT November 2022 TECHNIQUE: Multidetector volumetric CT imaging of the chest was done. Axial MIP volume rendering provided. Sagittal and coronal reformatted images were obtained. This CT examination was performed using dose optimization techniques as appropriate, variously including the following: *Automated exposure control *Adjustment of mA and/or kV according to patient size (this includes techniques or standardized protocols for targeted exams where dose is matched to indication/reason for exam; i.e. extremities or head) *Use of iterative reconstruction technique DLP: 119 mGy-cm FINDINGS: OUTCOMES ANALYST: LUNGS: Stable postsurgical changes following right upper lobe lobectomy. Continued gradual increase in clustered round glass and semisolid right lower lobe and now right middle lobe nodules compared to previous exams most recent November 2022 PET/CT scan. Largest discrete nodule measures 1 x 1.3 cm axial image 21 series 3. There is interval increase in bronchial wall thickening, focal bronchiectasis and mucous plugging in the left lower lobe for example axial image 47 series 3. MEDIASTINUM: No enlarged hilar or mediastinal lymph nodes. Normal heart size. No pericardial effusion. CORONARY ARTERY CALCIFICATION: Mild PLEURA: There is no pleural effusion. No pleural mass or thickening. AXILLA: No lymphadenopathy. UPPER ABDOMEN: Unremarkable. OSSEOUS STRUCTURES: Degenerative changes of the spine. CT/CT chest wo IV con IMPRESSION: Stable changes from right upper lobe lobectomy. Continued interval increase in clustered groundglass and semisolid nodular opacities in the right lower lobe and now in the right middle lobe. Infectious, inflammatory and neoplastic process should be considered. Increasing left lower lobe bronchiectasis, bronchial wall thickening and mucus plugging. Fleischner guidelines were followed.
== END 2023-07-27 08:46 | disposition home or self-care (01) ==
LOC: HO.CT 08:45
PROVIDERS: PCP Internal Medicine; Visit Provider Surgery
DX: C34.11 Malignant neoplasm of upper lobe, right bronchus or lung (principal)
CPT/HCPCS: 71250

== ENCOUNTER 2023-08-04 08:42 | Outpatient (AMB) | payer OTHER, SELFPAY ==
[2023-08-04 08:49] VITALS: BP 128/70; PULSE 74; O2SAT 96; BMI 27.3
--- NOTE | 2023-08-04 08:49 | A.OFFVIS_ITS ---
Intake Vital Signs 08/04/23 08:49 Height 5 ft Weight 140 lb BMI 27.3 BP 128/70 Blood Pressure Location Lt brachial Position Sitting Pulse 74 Pulse Source Pulse Oximeter Pulse Oximetry (%) 96 Oxygen Delivery Method Room Air Intake Visit Reasons: COPD Entry Level Business Analyst Required: No Allergies moxifloxacin [From AVELOX] Allergy (Unknown, Verified 08/04/23 08:52) UNKNOWN multiple medication sensitivit Allergy (Unknown, Uncoded 08/04/23 08:52) Unknown HPI HPI Comments History of Present Illness Details 82-year-old woman who is status post [facility] right upper lobectomy and mediastinal lymphadenectomy for stage II B lung cancer done in August of 2020.? She has been followed with serial CT scans since that time her most recent being on 12/16/2021 which was compared with 10/22/2021.? She also had previous CT scans that were evaluated.? Findings on this CT scan shows stable superior segment right lower lobe peribronchial nodular opacities.? Of note, these are stable since September but slightly increased from previous CT scans.? She does report occasional shortness of breath but nothing new or different.? She denies cough, hemoptysis, unintentional weight loss, fevers, chills, or any new neurologic symptoms. 01/16/2022 the patient is here for a pulmonary follow-up visit. Overall she is doing okay. She does complaint of fatigue and also right-sided chest discomfort. Primary when lifting something she does discomfort. She does take Tylenol with good effect. She status post bronchoscopy. She had the interval worsening of the pulmonary nodules of the right lower lobe primarily superior segment. During the bronchoscopy demonstrated that her stump site was a little pronounced but biopsies were negative for any abnormalities. Just scarring. In addition to that she did have transbronchial biopsies of the right lower lobe superior segment demonstrating atypical edematous hyperplasia. 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 Her previous lung biopsy +KRAS mutation. Will refer to Oncology if she is a candidate of KRAS targeted therapy. The patient also has treated for H influenza. Completed antibiotics. 01/05/2023 the patient is here for pulmonary follow-up visit. She has been complaining of increasing chest tightness and wheezing. She also complains of pleuritic chest discomfort. To some degree has costochondritis. She did follow-up with her thoracic surgeon. She did have a PET scan. Showed mild activity in the nodular densities in the right hemithorax. She also complains or chills. She has been having increasing coughing wheezing. She may indeed have a smoldering infection resulting in the findings. Will go ahead and treat the patient for her wheezing with a long-acting combination inhaler and also continue her short-acting beta agonist. Will the also give her short course of doxycycline in case there is any smoldering Staph aureus. She is in the meantime the patient is agreeable to perform a bronchoscopy. We can assess for smoldering infection such as mycobacterial disease and others. The patient does not have aggressive therapy so therefore additional biopsies may not be warranted. We already now she has a typical edematous hyperplasia based on previous biopsies. 01/28/2023 the patient is here for a pulmonary follow-up visit. The patient continues to do well. She is status post bronchoscopy. Her cultures were all negative. We still waiting for the acid-fast bacilli cultures. She understands does take a few more weeks. She did have a lot of mucus burden the airways. We did treat him up as much as possible. No evidence of any endobronchial lesions noted on bronchoscopy. Her breathing is better. She still has a cough however. Intermittent. Her major complaint is the pain due to her surgery. On her right side. Sometimes it affects her sleep and sometimes it affects her ability of do her activities of daily living. She was given tramadol but it was too strong. Even taking half the dose was too strong. And she was given gabapentin 300 that was too strong as well. Therefore RO go ahead and give her ibuprofen that she can use as needed in addition or in conjunction with her tidal and I will decrease her gabapentin down to 100 mg. 05/05/2023 the patient is here for pulmonary follow-up visit. The patient overall is doing well. She continues to have a cough moderate severity. It bothers her. We again talked about the mycobacterial disease. 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 In view of her AH in her underlying symptoms will be reasonable to start her on macrolide therapy 3 times a week. Hopefully this can provide some relief. If the patient tolerates it we can also add additional double coverage to minimize resistance. She is also concerned about her mammogram that was deemed abnormal. She has to have a repeat study. In addition to that the patient has been dealing with significant back pain and sciatica. So therefore she is taking additional medication for that as well. Will try to minimize the amount of medication but just providing her the azithromycin. She responded well to the inhaler this is providing good results in with her breathing. Will follow-up in 3-4 months. She knows to get an EKG once she starts the medication to make sure that he QT interval is within normal limits while on the medication. 08/04/2023 the patient is here for pulmonary follow-up visit. The patient overall has been doing well. She does complaint of congested cough moderate severity. She has been on the azithromycin lb mg 3 times a week now for 3 months. She has not seen any significant improvement. Also, her CT scan his she still has tree in budding and also bronchiectatic changes all consistent with smoldering infection. Explained to the patient that it may be related to the fact that she is on the full dose of antimicrobial therapy. Although be difficult for her to tolerate the 3 medication cocktail. The patient has side hard time already taking 1 medication. However, I will give her sputum cough to take for culture. The meantime the patient will get a CPT device with the Acapella valve to help with bronchopulmonary hygiene. The patient also will continue with her respiratory inhaler as needed. In regards of the lung cancer history her CT scan is reassuring without any evidence of any recurrence. 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 (~2019) Seasonal allergies Surgical History H/O tubal ligation History of blepharoplasty (~07/17/14) History of bronchoscopy (~07/2020) History of chest tube placement (~09/27/20) History of rectal surgery S/P lobectomy of lung (~09/17/20) Family History Sister Liver transplant recipient Father Stroke Mother Diabetes mellitus Maternal Uncle Lung cancer Social History Household Members: None Housing: Apartment Do you presently have visiting nurse or other home services: No Patient Tobacco Use Status: Former Tobacco user Quit Date: age 30 Advance Directives Date on File: 09/02/20 Review of Systems Const Reports chills Eyes Denies change in vision ENT Denies epistaxis Resp Reports chest congestion, Reports cough, Denies pain on inspiration and Denies pain with cough GI Reports no additional complaints Musc Reports back pain and Reports radiating pain into limb Physical Exam Vital Signs: Last Vital Signs Pulse 74 08/04/23 08:49 BP 128/70 08/04/23 08:49 Pulse Ox 96 08/04/23 08:49 Oxygen Delivery Method Room Air 08/04/23 08:49 BMI result Body Mass Index 27.3 Const General: alert Neck Neck: Yes normal visual inspection, Yes full ROM and Yes no lymphadenopathy Chest Chest palpation & inspection: normal inspection of the chest Resp Auscultation: diminished lung sounds Cardio Rate: regular rate Rhythm: regular rhythm Heart sounds: S1 normal heart sound present and S2 normal heart sound present GI Palpation (GI): Soft to palpation and nontender Auscultation: normal bowel sounds Skin General skin exam: rashes and/or lesions noted Results Reviewed Results Reviewed: [address] [address] [address] Scan Report Signed Patient: Elda Vogt MR#: [id number] : 1940 Acct:[id number] Age/Sex: 82 / F ADM Date: 07/27/23 Loc: HO.CT Attending Dr: Sheila Oh MD Ordering Physician: Sheila Oh MD Date of Service: 07/27/23 Procedure(s): CT chest wo IV con Accession Number(s): [id number] cc: Sheila Oh MD~ EXAMINATION: CT CHEST WITHOUT CONTRAST CLINICAL INFORMATION: Lung cancer? COMPARISON: Previous chest CT April 2022 and PET/CT November 2022 TECHNIQUE: Multidetector volumetric CT imaging of the chest was done. Axial MIP volume rendering provided. Sagittal and coronal reformatted images were obtained.? This CT examination was performed using dose optimization techniques as appropriate, variously including the following: *Automated exposure control *Adjustment of mA and/or kV according to patient size (this includes techniques or standardized protocols for targeted exams where dose is matched to indication/reason for exam; i.e. extremities or head) *Use of iterative reconstruction technique DLP: 119 mGy-cm FINDINGS: NURSING ASSOC: LUNGS: Stable postsurgical changes following right upper lobe lobectomy. Continued gradual increase in clustered round glass and semisolid right lower lobe and now right middle lobe nodules compared to previous exams most recent November 2022 PET/CT scan. Largest discrete nodule measures 1 x 1.3 cm axial image 21 series 3. There is interval increase in bronchial wall thickening, focal bronchiectasis and mucous plugging in the left lower lobe for example axial image 47 series 3. MEDIASTINUM: No enlarged hilar or mediastinal lymph nodes. Normal heart size. No pericardial effusion.? CORONARY ARTERY CALCIFICATION: Mild PLEURA: There is no pleural effusion. No pleural mass or thickening.? AXILLA: No lymphadenopathy.? UPPER ABDOMEN: Unremarkable.? OSSEOUS STRUCTURES: Degenerative changes of the spine. CT/CT chest wo IV con IMPRESSION: Stable changes from right upper lobe lobectomy. Continued interval increase in clustered groundglass and semisolid nodular opacities in the right lower lobe and now in the right middle lobe. Infectious, inflammatory and neoplastic process should be considered. Increasing left lower lobe bronchiectasis, bronchial wall thickening and mucus plugging. ? ? Fleischner guidelines were followed. Dictated By: Elza Beasley MD Signed By: <Electronically signed by Elza Beasley MD in OV> 07/28/23 1126 DD/ 0910 TD/TT:? Compliance Reviewer: ANDREA Assessment & Plan Assessment & Plan (1) Multiple pulmonary nodules: Code(s): R91.8 - Other nonspecific abnormal finding of lung field (2) Lung cancer: Code(s): C34.90 - Malignant neoplasm of unspecified part of unspecified bronchus or lung (3) Primary cancer of right upper lobe of lung: Onset Date: ~2019 Comment: (Adenocarcinoma, Pathological stage: pT3 pN0 MX, AJCC stage: II B - s/p RUL lobectomy 08/2020) Code(s): C34.11 - Malignant neoplasm of upper lobe, right bronchus or lung (4) Post-thoracotomy pain syndrome: Code(s): G89.12 - Acute post-thoracotomy pain (5) Mycobacterial disease: Code(s): A31.9 - Mycobacterial infection, unspecified Plan continue Azithromycin 500mg MWF EKG while on the macrolides continue Breo daily VELMA as needed Ibuprofen/Tylenol as needed Gabapentin 100 QHS sputum cx F/U 3-4 months Orders: Orders Acid-fast Culture + Smear Today A31.9 - Mycobacterial infection, unspecified, Z87.01 - Personal history of pneumonia (recurrent) Sputum Cult + Gram stain Today A31.9 - Mycobacterial infection, unspecified, Z87.01 - Personal history of pneumonia (recurrent) Coding Level of Care Code Est Pt Level 4 (40465) Diagnoses Multiple pulmonary nodules R91.8 Lung cancer C34.90 Primary cancer of right upper lobe of lung C34.11 Post-thoracotomy pain syndrome G89.12 Mycobacterial disease A31.9 Time Spent (min) 18
== END 2023-08-04 09:09 | disposition home or self-care (01) ==
PROVIDERS: PCP Internal Medicine; Visit Provider Hospitalist
DX: R91.8 Other nonspecific abnormal finding of lung field (principal); C34.90 Malignant neoplasm of unspecified part of unspecified bronchus or lung; C34.11 Malignant neoplasm of upper lobe, right bronchus or lung; G89.12 Acute post-thoracotomy pain; A31.9 Mycobacterial infection, unspecified
CPT/HCPCS: 99214

== ENCOUNTER → 2023-08-04 08:42 | Outpatient (BNVA) | payer OTHER, SELFPAY | PROVIDERS: PCP Internal Medicine; Visit Provider Hospitalist | DX: A31.9 Mycobacterial infection, unspecified (principal); C34.11 Malignant neoplasm of upper lobe, right bronchus or lung; Z87.891 Personal history of nicotine dependence; Z87.01 Personal history of pneumonia (recurrent); Z90.2 Acquired absence of lung [part of] | CPT/HCPCS: 99212 ==

== ENCOUNTER 2023-08-06 15:43 | Outpatient (REF) | payer OTHER, SELFPAY | END 2023-08-06 15:44 | disposition home or self-care (01) | LOC: HO.LNP 15:43 | PROVIDERS: Visit Provider Hospitalist | DX: A31.9 Mycobacterial infection, unspecified (principal); Z87.01 Personal history of pneumonia (recurrent) | CPT/HCPCS: 87070; 87116; 87205; 87206 ==

== ENCOUNTER 2023-08-27 19:54 | Emergency (ER) | payer OTHER, SELFPAY ==
--- NOTE | 2023-08-27 | ECG_ITS ---
Test Reason : chronic lung infection Blood Pressure : / mmHG Vent. Rate : 057 BPM Atrial Rate : 057 BPM P-R Int : 218 ms QRS Dur : 078 ms QT Int : 436 ms P-R-T Axes : 067 035 090 degrees QTc Int : 424 ms Sinus bradycardia with sinus arrhythmia with 1st degree A-V block Possible Left atrial enlargement Nonspecific ST and T wave abnormality Abnormal ECG When compared with ECG of 18-FEB-2021 09:27, IN interval has increased T wave inversion now evident in Lateral leads Referred By: Daphney Wong Electronically Signed By:BILLY KHANNA
[2023-08-27 20:07] VITALS: BP 142/74; PULSE 65; O2SAT 98; BMI 25.6
[2023-08-27 20:26] VITALS: BP 178/67; PULSE 66; RESP 17; TEMP 36.7; O2SAT 96
[2023-08-27 20:27] LABS: MANUAL DIFF FLAG NO
[2023-08-27 20:28] LABS: Basophils Absolute Auto 0.1 X10*3/uL (0.0-0.2); Basophils Percent Auto 0.5 % (0-2); Eosinophils Absolute Auto 0.1 X10*3/uL (0.0-0.4); Hematocrit 38.6 % (37.0-47.0); Hemoglobin 13.4 g/dl (12.0-16.0); Imm Gran Abs Auto 0.05 X10*3/uL (0.00-0.03); Imm Gran Pct Auto 0.5 % (0.0-0.4); Lymphocytes Absolute Auto 1.6 X10*3/uL (1.2-4.9); Lymphocytes Percent Auto 15.1 % (20-40); Mean Corpuscular HGB Conc 34.7 g/dl (31.0-35.0); Mean Corpuscular Hemoglobin 31.7 pg (27.0-33.0); Mean Corpuscular Volume 91.3 fL (80.0-98.0); Mean Platelet Volume 9.2 fL (9.4-12.3); Monocytes Absolute Auto 0.8 X10*3/uL (0.1-1.2); Monocytes Percent Auto 7.4 % (2-11); Neutrophils Percent Auto 75.5 % (45-73); Platelet Count 233 X10*3/uL (160-400); Red Blood Count 4.23 X10*6/uL (4.20-5.50); Red Cell Distribution Width 11.9 % (11.0-16.0); White Blood Count 10.6 X10*3/uL (4.8-10.8)
--- NOTE | 2023-08-27 20:31 | ED_ITS ---
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 Cartwright here with c/o being put on a sucralfate prior to her zpak medication as it was causing an upset stomach she notes that tonight after taking it she felt funny and weird. She states I feel cold and not myself I think it is the medications. She states she is very sensitive. No CP/SOB. She denies fevers, dizziness. MD complaint: feels cold Onset (ago): hour(s) (2) Radiation: non-radiation Severity: mild Quality: dull Relieving factors: none Exacerbating factors: medication Associated symptoms: diaphoresis and other (felt cold) Related Data Home Medications Medication Instructions Recorded Confirmed amlodipine 10 mg tablet 10 mg PO DAILY 08/30/20 06/18/23 loratadine 10 mg tablet 10 mg PO DAILY 05/30/21 06/18/23 omeprazole 20 mg capsule,delayed 20 mg PO BID 01/05/23 06/18/23 release cetirizine 10 mg tablet 10 mg PO BID 05/05/23 06/18/23 ergocalciferol (vitamin D2) 1,250 1,250 mcg PO QWEEK 05/05/23 06/18/23 mcg (50,000 unit) capsule (Vitamin D2) fluticasone propionate 50 1 - 2 spray intranasal BID 05/05/23 06/18/23 mcg/actuation nasal spray,suspension ibuprofen 600 mg tablet 600 mg PO BID 05/05/23 06/18/23 mirabegron 25 mg tablet,extended 25 mg PO DAILY 05/05/23 06/18/23 release 24 hr (Myrbetriq) Previous Rx's Medication Instructions Recorded albuterol sulfate 90 mcg/actuation 2 puff inhalation QID PRN 01/05/23 aerosol inhaler (Ventolin HFA) shortness of breath or wheezing 30 days #18 grams fluticasone furoate 100 1 inh inhalation DAILY 30 days #60 01/05/23 mcg-vilanterol 25 mcg/dose ea inhalation powder (Breo Ellipta) azithromycin 500 mg tablet 500 mg PO 3XW 28 days #12 tabs 05/05/23 Allergies Allergy/AdvReac Type Severity Reaction Status Date / Time moxifloxacin [From AVELOX] Allergy Unknown UNKNOWN Verified 08/04/23 08:52 multiple medication Allergy Unknown Unknown Uncoded 08/04/23 08:52 sensitivit Review of Systems 2 Review of Systems: Constitutional : No Fever, pos Chills, No Fatigue, pos sweats, pos malaise ENT/Mouth : No sore throat, No Rhinorrhea Eyes: No Eye Pain, No Swelling, No Redness Cardiovascular : No Chest Pain, No SOB, No Dyspnea on Exertion Respiratory : No Cough, No Sputum Gastrointestinal : No Nausea, No Vomiting, No Diarrhea, No abdominal Pain Genitourinary : No Dysuria, No Urinary Frequency, No Hematuria, Musculoskeletal : No joint pain, No Myalgias, No Joint Swelling Skin : No Skin Lesions, No rash Neuro : pos Weakness, No Numbness, No Dizziness, positive Headache Psych : No Anxiety/Panic, No Depression All other systems reviewed and are negative [facility] Past Medical History Attestation statement: The following information was validated with the patient. 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 Primary cancer of right upper lobe of lung (~2019) History of pneumonia Seasonal allergies Hypertension Surgical History History of blepharoplasty (~07/17/14) History of bronchoscopy (~07/2020) History of chest tube placement (~09/27/20) S/P lobectomy of lung (~09/17/20) History of rectal surgery H/O tubal ligation Family History Family History Sister Liver transplant recipient Father Stroke Mother Diabetes mellitus Maternal Uncle Lung cancer Social History Social History Household Members: None Housing: Apartment Do you presently have visiting nurse or other home services: No Unable to assess alcohol history related to: Unknown Patient Tobacco Use Status: Former Tobacco user Quit Date: age 30 Smoked in Last 30 Days: No Use of substances other than those prescribed or required for medical reasons: No Advance Directives: Yes Advance Directives Information Provided: Yes Advance Directives on File: Yes Advance Directives Date on File: 09/02/20 Physical Exam ED Vital Signs: Vital Signs - 24 hr 08/27/23 20:26 Temperature 98.0 F Pulse Rate 66 Respiratory Rate 17 Blood Pressure 178/67 H Pulse Oximetry 96 Oxygen Delivery Method Room Air BMI result Body Mass Index 25.6 Appearance: Alert. Oriented X3. No acute distress. Eyes: Pupils equal, round and reactive to light. ENT: Pharynx normal. Neck: Normal inspection. Neck supple. CVS: Normal heart rate and rhythm. Pulses normal. Respiratory: No respiratory distress. Breath sounds normal. Abdomen: Soft and nontender. Skin: Skin warm and dry. Normal skin color. Normal skin turgor. Extremities: No lower extremity edema. No calf ttp Neuro: Oriented X 3. No motor deficit. No sensory deficit. 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 Cartwright here with c/o feeling sweaty and then cold after taking sucralfate no CP/SOB n/v/d no pain just feels not herself. States she thinks it is the medication. She is on it due to the azithromycin causing GI upset. At this time basic labs, EKG and covid swabs. She is already up and walking and using bathroom. Differential Diagnosis Differential Diagnoses: The differential diagnosis associated with the presentation includes viral syndrome, anxiety, med reaction Admission/Observation Consideration of admission/observation: Escalation of care including admission/observation considered labs reasuring feels better stable for DC clear lungs at this time no WBC count, feels much better at this time Lab Data [facility] Lab Attestation statement: I reviewed the patient's lab results. 08/27/23 20:21 08/27/23 20:21 Labs: Lab Results 08/27/23 08/27/23 08/27/23 Range/Units 20:21 20:31 20:58 WBC 10.6 (4.8-10.8) X10*3/uL RBC 4.23 (4.20-5.50) X10*6/uL Hgb 13.4 (12.0-16.0) g/dl Hct 38.6 (37.0-47.0) % MCV 91.3 (80.0-98.0) fL MCH 31.7 (27.0-33.0) pg MCHC 34.7 (31.0-35.0) g/dl RDW 11.9 (11.0-16.0) % Plt Count 233 (160-400) X10*3/uL MPV 9.2 L (9.4-12.3) fL Immature Gran % (Auto) 0.5 H (0.0-0.4) % Neut % (Auto) 75.5 H (45-73) % Lymph % (Auto) 15.1 L (20-40) % [place] % (Auto) 7.4 (2-11) % Eos % (Auto) 1.0 (0-4) % Baso % (Auto) 0.5 (0-2) % Lymph # (Auto) 1.6 (1.2-4.9) X10*3/uL [place] # (Auto) 0.8 (0.1-1.2) X10*3/uL Eos # (Auto) 0.1 (0.0-0.4) X10*3/uL Baso # (Auto) 0.1 (0.0-0.2) X10*3/uL Abs Immat Gran (auto) 0.05 H (0.00-0.03) X10*3/uL Absolute Neuts (auto) 8.0 (2.0-8.3) x10*3/uL Absolute Nucleated RBC 0.000 (0.0-0.012) X10*3/uL Nucleated RBC % (auto) 0.0 (0.0-0.2) /100WBC PT 10.6 L (11.1-13.3) SEC INR 0.9 (0.9-1.1) Sodium 138 (135-145) mmol/L Potassium 4.0 (3.3-5.1) mmol/L Chloride 100 (96-108) mmol/L Carbon Dioxide 24 (22-29) mmol/L Anion Gap 18 (12-20) BUN 12 (9-16) mg/dL Creatinine 0.67 (0.5-1.4) mg/dL Estim Creat Clear Calc 57.6 Estimated GFR > 60 Random Glucose 110 (60-115) mg/dL Lactic Acid 0.8 (0.5-2.0) mmol/L Calcium 10.2 (8.4-10.2) mg/dL Total Bilirubin 0.3 (0.0-1.0) mg/dL AST 17 (5-31) U/L ALT 14 (0-31) U/L Alkaline Phosphatase 95 (39-117) U/L Troponin I High Sens < 2.7 (<3.5-17.0) ng/L Total Protein 7.6 (6.5-8.0) g/dL Albumin 4.8 (3.5-5.0) g/dL Urine Color Yellow Urine Appearance Clear Urine pH 6.5 (5.0-9.0) Ur Specific [place] <= 1.005 (1.005-1.025) Urine Protein Negative (Neg-Trace) mg/dL Urine Glucose (UA) Negative (Negative) mg/dL Urine Ketones Negative (Negative) mg/dL Urine Blood Negative (Negative) Urine Nitrite Negative (Negative) Ur Leukocyte Esterase Trace H (Negative) Urine RBC 0-2 (0-2) /HPF Urine WBC 0-5 (0-5) /HPF Ur Squamous Epith Cells 0-2 (0-2) /HPF Urine Bacteria None Seen (None Seen) Hyaline Casts 0-2 (0-2) /LPF COVID-19 (FLYNN) Negative (Negative) COVID-19 Clin Com See Note Influenza Type A (ELIAS) Negative (Negative) Influenza Type B (ELIAS) Negative (Negative) Influenza A & B Note See Note Independent Interpretation I performed an independent interpretation of an: EKG Interpretation: Rate: 57 Rhythm: sinus bradycardia 1st degree avb [place]: normal Normal P waves. Normal ERICK. Normal QRS complex. ST T wave : no MAME, nonspecific changes ant leads qTC: normal prior studies: no acute ischemia The study has been interpreted contemporaneously by me. . Independent Historian Clinical information obtained from an independent historian. History obtained from or confirmed by: EMS External Record Review External record reviewed: Inpatient record Discharge Plan Discharge Clinical Impression: Weakness Patient Disposition: Home, Self-Care Instructions: Weakness (ED) Additional Instructions: return for worsening cough, fevers, chills difficulty breathing pain, vomiting diarrhea or any other concerns. Prescriptions: No Action amlodipine 10 mg tablet 10 mg PO DAILY loratadine 10 mg tablet 10 mg PO DAILY ibuprofen 600 mg tablet 600 mg PO BID fluticasone propionate 50 mcg/actuation spray,suspension 1 - 2 spray intranasal BID Myrbetriq 25 mg tablet extended release 24 hr 25 mg PO DAILY ergocalciferol (vitamin D2) [Vitamin D2] 1,250 mcg (50,000 unit) capsule 1,250 mcg PO QWEEK cetirizine 10 mg tablet 10 mg PO BID azithromycin 500 mg tablet 500 mg PO 3XW 28 Days Qty: 12 4RF Rx Instructions: Wednesday, Wednesday, Wednesday omeprazole 20 mg capsule,delayed release(DR/EC) 20 mg PO BID fluticasone furoate-vilanterol [Breo Ellipta] 100-25 mcg/dose blister with device 1 inh inhalation DAILY 30 Days Qty: 60 11RF albuterol sulfate [Ventolin HFA] 90 mcg/actuation HFA aerosol inhaler 2 puff inhalation QID PRN (Reason: shortness of breath or wheezing) 30 Days Qty: 18 11RF
[2023-08-27 20:34] LABS: INTERNATIONAL NORM RATIO 0.9 (0.9-1.1); Prothrombin Time 10.6 SEC (11.1-13.3)
[2023-08-27 20:48] LABS: Lactic Acid 0.8 mmol/L (0.5-2.0)
[2023-08-27 20:52] LABS: COVID-19 Test Negative (Negative); IDNOW Serial# 08D9AD1C; IDNOW Serial# BCCEAD1C; Influenza A Negative (Negative); Influenza B2 Negative (Negative)
[2023-08-27 20:53] LABS: Alanine Aminotransferase 14 U/L (0-31); Albumin Level 4.8 g/dL (3.5-5.0); Alkaline Phosphatase 95 U/L (39-117); Anion Gap 18 (12-20); Aspartate Amino Transferase 17 U/L (5-31); Bilirubin Total 0.3 mg/dL (0.0-1.0); Blood Urea Nitrogen 12 mg/dL (9-16); Calcium 10.2 mg/dL (8.4-10.2); Carbon Dioxide 24 mmol/L (22-29); Chloride 100 mmol/L (96-108); Creatinine Clr Calc Pharmacy 57.6; Estimated Glomerular Filt Rate > 60; Glucose Random 110 mg/dL (60-115); Sodium 138 mmol/L (135-145); Total Protein 7.6 g/dL (6.5-8.0)
[2023-08-27 21:01] LABS: Troponin-I High Sensitivity < 2.7 ng/L (<3.5-17.0)
--- NOTE | 2023-08-27 21:03 | PC.NURSE ---
pt oob with 1 assist to the BR, gait steady, urine obtained
[2023-08-27 21:11] LABS: Appearance Urine Clear; Color Urine Yellow; Glucose Urine UA Negative (Negative); Leukocyte Esterase Urine Trace (Negative); Nitrite Urine Negative (Negative); PH 6.5 (5.0-9.0); Specific Gravity - Urine <= 1.005 (1.005-1.025); UMIC TRIGGER UACC YES; Urine Blood Negative (Negative); Urine Ketones Negative (Negative); Urine Protein Negative (Neg-Trace)
[2023-08-27 21:37] LABS: Bacteria Urine None Seen (None Seen); Hyaline Casts Urine 0-2 /LPF (0-2); RBC Urine 0-2 /HPF (0-2); Squamous Epithelial Cell Urine 0-2 /HPF (0-2); WBC Urine 0-5 /HPF (0-5)
== END 2023-08-27 22:58 | disposition home or self-care (01) ==
PROVIDERS: Emergency Provider Emergency Medicine; PCP Internal Medicine
DX: R53.1 Weakness (principal); R00.1 Bradycardia, unspecified; Z20.822 Contact with and (suspected) exposure to COVID-19; Z20.828 Contact with and (suspected) exposure to other viral communicable diseases; Z79.899 Other long term (current) drug therapy; Z87.891 Personal history of nicotine dependence
CPT/HCPCS: 36415; 80053; 81001; 83605; 84484; 85025; 85610; 87040; 87502; 87635; 93005; 99283; 99284

== ENCOUNTER 2023-09-02 07:57 | Outpatient (REF) | payer OTHER, SELFPAY ==
[2023-09-02 08:13] LABS: MANUAL DIFF FLAG NO
[2023-09-02 08:18] LABS: Basophils Absolute Auto 0.1 X10*3/uL (0.0-0.2); Basophils Percent Auto 0.9 % (0-2); Eosinophils Absolute Auto 0.1 X10*3/uL (0.0-0.4); Eosinophils Percent Auto 1.5 % (0-4); Hematocrit 39.1 % (37.0-47.0); Hemoglobin 13.6 g/dl (12.0-16.0); Imm Gran Abs Auto 0.01 X10*3/uL (0.00-0.03); Imm Gran Pct Auto 0.2 % (0.0-0.4); Lymphocytes Absolute Auto 1.3 X10*3/uL (1.2-4.9); Lymphocytes Percent Auto 23.8 % (20-40); Mean Corpuscular HGB Conc 34.8 g/dl (31.0-35.0); Mean Corpuscular Hemoglobin 31.3 pg (27.0-33.0); Mean Corpuscular Volume 90.1 fL (80.0-98.0); Mean Platelet Volume 9.3 fL (9.4-12.3); Monocytes Absolute Auto 0.5 X10*3/uL (0.1-1.2); Monocytes Percent Auto 8.9 % (2-11); Neutrophils Absolute Auto 3.5 x10*3/uL (2.0-8.3); Neutrophils Percent Auto 64.7 % (45-73); Platelet Count 253 X10*3/uL (160-400); Red Blood Count 4.34 X10*6/uL (4.20-5.50); Red Cell Distribution Width 11.9 % (11.0-16.0); White Blood Count 5.4 X10*3/uL (4.8-10.8)
[2023-09-02 08:36] LABS: Alanine Aminotransferase 15 U/L (0-31); Albumin Level 4.7 g/dL (3.5-5.0); Alkaline Phosphatase 90 U/L (39-117); Anion Gap 16 (12-20); Aspartate Amino Transferase 16 U/L (5-31); Bilirubin Direct 0.1 mg/dL (0.0-0.5); Bilirubin Total 0.4 mg/dL (0.0-1.0); Blood Urea Nitrogen 12 mg/dL (9-16); Calcium 10.3 mg/dL (8.4-10.2); Carbon Dioxide 25 mmol/L (22-29); Chloride 100 mmol/L (96-108); Estimated Glomerular Filt Rate > 60; Glucose Random 104 mg/dL (60-115); Potassium 4.4 mmol/L (3.3-5.1); Sodium 137 mmol/L (135-145); Total Protein 7.4 g/dL (6.5-8.0)
== END 2023-09-02 07:58 | disposition home or self-care (01) ==
LOC: HO.XRAY 07:57
PROVIDERS: PCP Internal Medicine; Visit Provider Hospitalist
DX: R10.9 Unspecified abdominal pain (principal)
CPT/HCPCS: 36415; 74019; 80048; 80076; 83605; 84484; 85025; 85652

== ENCOUNTER 2023-10-26 08:54 | Outpatient (AMB) | payer OTHER, SELFPAY ==
[2023-10-26 09:46] VITALS: BMI 25.4
--- NOTE | 2023-10-26 09:46 | A.OFFVIS_ITS ---
Intake Vital Signs 10/26/23 09:46 Height 5 ft 2 in Weight 63 kg BMI 25.4 Intake Visit Reasons: Spirometry Allergies moxifloxacin [From AVELOX] Allergy (Unknown, Verified 10/26/23 09:47) UNKNOWN multiple medication sensitivit Allergy (Unknown, Uncoded 10/26/23 09:47) Unknown Medication List - Last Reconciled 10/26/23 by Nano Vargas LPN albuterol sulfate 90 mcg/actuation (Ventolin HFA) 2 puffs inhalation QID PRN 30 days amlodipine 10 mg PO DAILY azithromycin 500 mg PO 3XW 28 days cetirizine 10 mg PO BID ergocalciferol (vitamin D2) (Vitamin D2) 1,250 mcg PO QWEEK fluticasone furoate-vilanterol 100-25 mcg/dose (Breo Ellipta) 1 inh inhalation DAILY 30 days fluticasone propionate 50 mcg/actuation 1 - 2 sprays intranasal BID ibuprofen 600 mg PO BID loratadine 10 mg PO DAILY mirabegron ER (Myrbetriq) 25 mg PO DAILY omeprazole 20 mg PO BID [facility] Medical History (Updated 09/01/23 @ 08:50 by Kory Cartwright MD) Abdominal pain 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 Primary cancer of right upper lobe of lung (~2019) History of pneumonia Seasonal allergies Hypertension Surgical History History of blepharoplasty (~07/17/14) History of bronchoscopy (~07/2020) History of chest tube placement (~09/27/20) S/P lobectomy of lung (~09/17/20) History of rectal surgery H/O tubal ligation Family History Sister Liver transplant recipient Father Stroke Mother Diabetes mellitus Maternal Uncle Lung cancer Household Members: None Housing: Apartment Do you presently have visiting nurse or other home services: No Unable to assess alcohol history related to: Unknown Patient Tobacco Use Status: Former Tobacco user Quit Date: age 30 Advance Directives Date on File: 09/02/20 Office Procedures Spirometry Testing Spirometry Comments: Spirometry done in the office, Dr. Cartwright has the results results scanned to her chart. 24780- Spirometry Assessment & Plan Assessment & Plan Orders: Orders AMB Spirometry Testing Today A31.9 - Mycobacterial infection, unspecified Coding Level of Care Code Established Pt Est Pt Level 1 (32940) Patient Type Established CPT Codes Spirometry - CPT: 04277- Spirometry ([id number]) Comment NURSE VISIT ONLY
== END 2023-10-26 10:10 | disposition home or self-care (01) ==
PROVIDERS: PCP Internal Medicine; Visit Provider Hospitalist
DX: A31.9 Mycobacterial infection, unspecified (principal)
CPT/HCPCS: 94010

== ENCOUNTER → 2023-10-26 08:54 | Outpatient (BNVA) | payer OTHER, SELFPAY | PROVIDERS: PCP Internal Medicine; Visit Provider Hospitalist | DX: A31.9 Mycobacterial infection, unspecified (principal) | CPT/HCPCS: 94010; 99211 ==

== ENCOUNTER 2023-11-10 08:46 | Outpatient (AMB) | payer OTHER, SELFPAY ==
--- NOTE | 2023-11-10 08:54 | A.OFFVIS_ITS ---
Intake Vital Signs 11/10/23 08:57 Height 5 ft 2 in Weight 137 lb BMI 25.1 BP 132/60 Blood Pressure Location Lt brachial Position Sitting Pulse 66 Pulse Source Pulse Oximeter Pulse Oximetry (%) 96 Oxygen Delivery Method Room Air Intake Visit Reasons: COPD Feather Renovator Required: No Allergies moxifloxacin [From AVELOX] Allergy (Unknown, Verified 11/10/23 08:55) UNKNOWN multiple medication sensitivit Allergy (Unknown, Uncoded 11/10/23 08:55) Unknown HPI HPI Comments History of Present Illness Details 83-year-old woman who is status post Mark inci right upper lobectomy and mediastinal lymphadenectomy for stage II B lung cancer done in August of 2020.? She has been followed with serial CT scans since that time her most recent being on 12/16/2021 which was compared with 10/22/2021.? She also had previous CT scans that were evaluated.? Findings on this CT scan shows stable superior segment right lower lobe peribronchial nodular opacities.? Of note, these are stable since September but slightly increased from previous CT scans.? She does report occasional shortness of breath but nothing new or different.? She denies cough, hemoptysis, unintentional weight loss, fevers, chills, or any new neurologic symptoms. 01/16/2022 the patient is here for a pul monary follow-up visit. Overall she is doing okay. She does complaint of fatigue and also right-sided chest discomfort. Primary when lifting something she does discomfort. She does take Tylenol with good effect. She status post bronchoscopy. She had the interval worsening of the pulmonary nodules of the right lower lobe primarily superior segment. During the bronchoscopy demonstrated that her stump site was a little pronounced but biopsies were negative for any abnormalities. Just scarring. In addition to that she did have transbronchial biopsies of the right lower lobe superior segment demonstrating atypical edematous hyperplasia. 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 Her previous lung biopsy +KRAS mutation. Will refer to Oncology if she is a candidate of KRAS targeted therapy. The patient also has treated for H influenza. Completed antibiotics. 01/05/2023 the patient is here for pulmona ry follow-up visit. She has been complaining of increasing chest tightness and wheezing. She also complains of pleuritic chest discomfort. To some degree has costochondritis. She did follow-up with her thoracic surgeon. She did have a PET scan. Showed mild activity in the nodular densities in the right hemithorax. She also complains or chills. She has been having increasing coughing wheezing. She may indeed have a smoldering infection resulting in the findings. Will go ahead and treat the patient for her wheezing with a long-acting combination inhaler and also continue her short-acting beta agonist. Will the also give her short course of doxycycline in case there is any smoldering Staph aureus. She is in the meantime the patient is agreeable to perform a bronchoscopy. We can assess for smoldering infection such as mycobacterial disease and others. The patient does not have aggressive therapy so therefore additional biopsies may not be warranted. We already now she has a typical edematous hyperplasia based on previous biopsies. 01/28/2023 the patient is here for a pulmo nary follow-up visit. The patient con tinues to do well. She is status post bronchoscopy. Her cultures were all negative. We still waiting for the acid-fast bacilli cultures. She understands does take a few more weeks. She did have a lot of mucus burden the airways. We did treat him up as much as possible. No evidence of any endobronchial lesions noted on bronchoscopy. Her breathing is better. She still has a cough however. Intermittent. Her major complaint is the pain due to her surgery. On her right side. Sometimes it affects her sleep and sometimes it affects her ability of do her activities of daily living. She was given tramadol but it was too strong. Even taking half the dose was too strong. And she was given gabapentin 300 that was too strong as well. Therefore RO go ahead and give her ibuprofen that she can use as needed in addition or in conjunction with her tidal and I will decrease her gabapentin down to 100 mg. 05/05/2023 the patient is here for pulmona ry follow-up visit. The patient overall is doing well. She continues to have a cough moderate severity. It bothers her. We again talked about the mycobacterial disease. 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 In view of her AH in her underlying symptoms will be reasonable to start her on macrolide therapy 3 times a week. Hopefully this can provide some relief. If the patient tolerates it we can also add additional double coverage to minimize resistance. She is also concerned about her mammogram that was deemed abnormal. She has to have a repeat study. In addition to that the patient has been dealing with significant back pain and sciatica. So therefore she is taking additional medication for that as well. Will try to minimize the amount of medication but just providing her the azithromycin. She responded well to the inhaler this is providing good results in with her breathing. Will follow-up in 3-4 months. She knows to get an EKG o nce she starts the medication to make sure that he QT interval is within normal limits while on the medication. 08/04/2023 the patient is here for pulmona ry follow-up visit. The patient overall has been doing well. She does complaint of congested cough moderate severity. She has been on the azithromycin lb mg 3 times a week now for 3 months. She has not seen any significant improvement. Also, her CT scan his she still has tree in budding and also bronchiectatic changes all consistent with smoldering infection. Explained to the patient that it may be related to the fact that she is on the full dose of antimicrobial therapy. Although be difficult for her to tolerate the 3 medication cocktail. The patient has side hard time already taking 1 medication. However, I will give her sputum cough to take for culture. The meantime the patient will get a CPT device with the Acapella valve to help with bronchopulmonary hygiene. The patient also will continue with her respiratory inhaler as needed. In regards of the lung cancer history her CT scan is reassuring without any evidence of any recurrence. 11/10/2023 the patient is here for a pul monary follow-up visit. She still has a congested cough. She could not tolerate the azithromycin so therefore she was stopped. She is no longer taking any antibiotics. She feels like she can not handle the cough okay. Hard time expectorating though. We did try nebulizer treatment in the office to see if this will be helpful but she did not see any significant difference. Therefore she can hold off. She also tried the Acapella valve but she got dizzy doing it so she just needs to be careful not to eat too fast. She has responded well to Mucinex in the past therefore she can use guaifenesin with DM as needed. I did send her script to the pharmacy. No additional imaging at this time. Will follow-up in 3-4 months and decide further imaging studies at that visit. If the patient has any worsening symptoms prior to that visit she can always call for an earlier assessment. 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 Primary cancer of right upper lobe of lung (~2019) History of pneumonia Seasonal allergies Hypertension Surgical History History of blepharoplasty (~07/17/14) History of bronchoscopy (~07/2020) History of chest tube placement (~09/27/20) S/P lobectomy of lung (~09/17/20) History of rectal surgery H/O tubal ligation Family History Sister Liver transplant recipient Father Stroke Mother Diabetes mellitus Maternal Uncle Lung cancer Social History Household Members: None Housing: Apartment Do you presently have visiting nurse or other home services: No Unable to assess alcohol history related to: Unknown Comment: pt states it is tolerable Patient Tobacco Use Status: Former Tobacco user Quit Date: age 30 Advance Directives Date on File: 09/02/20 Review of Systems Const Reports chills Eyes Denies change in vision ENT Denies epistaxis Resp Reports chest congestion, Reports cough, Denies pain on inspiration and Denies pain with cough GI Reports no additional complaints Musc Reports back pain and Reports radiating pain into limb Physical Exam Vital Signs: Last Vital Signs Pulse 66 11/10/23 08:57 BP 132/60 11/10/23 08:57 Pulse Ox 96 11/10/23 08:57 Oxygen Delivery Method Room Air 11/10/23 08:57 BMI result Body Mass Index 25.1 Const General: alert Neck Neck: Yes normal visual inspection, Yes full ROM and Yes no lymphadenopathy Chest Chest palpation & inspection: normal inspection of the chest Resp Auscultation: diminished lung sounds Cardio Rate: regular rate Rhythm: regular rhythm Heart sounds: S1 normal heart sound present and S2 normal heart sound present GI Palpation (GI): Soft to palpation and nontender Auscultation: normal bowel sounds Skin General skin exam: rashes and/or lesions noted Office Procedures Nebulizer Treatment Nebulizer Treatment [id number]/MDI RX initial, or Nebulizer Subsequent Treatment Office Meds albuterol sulfate 2.5 mg/3 mL (0.083 %) solution for nebulization Performing Provider: Kory Cartwright MD Performing Location[place] [facility] Administered by: Nano Vargas LPN on 11/10/23 09:15 Dose Route Admin Location Dispensed Lot Number Expiration Date [facility] [employer] 2.5 mg inhalation 3 mL [id number] 10/28/24 3855-8247-47 [employer] Assessment & Plan Assessment & Plan (1) Multiple pulmonary nodules: Code(s): R91.8 - Other nonspecific abnormal finding of lung field (2) Primary cancer of right upper lobe of lung: Onset Date: ~2019 Comment: (Adenocarcinoma, Pathological stage: pT3 pN0 MX, AJCC stage: II B - s/p RUL lobectomy 08/2020) Code(s): C34.11 - Malignant neoplasm of upper lobe, right bronchus or lung (3) Post-thoracotomy pain syndrome: Code(s): G89.12 - Acute post-thoracotomy pain (4) Mycobacterial disease: Code(s): A31.9 - Mycobacterial infection, unspecified Plan stop Azithromycin 500mg MWF Cough medicine continue Breo daily VELMA as needed Ibuprofen/Tylenol as needed Gabapentin 100 QHS F/U 3-4 months Orders: Orders AMB Nebulizer Treatment Today A31.9 - Mycobacterial infection, unspecified Medications: New dextromethorphan-guaifenesin 5-100 mg/5 mL 10 mL PO Q6H 30 days PRN 355 mL 0RF cough Coding Level of Care Code Est Pt Level 4 (54136) Diagnoses Multiple pulmonary nodules R91.8 Primary cancer of right upper lobe of lung C34.11 Post-thoracotomy pain syndrome G89.12 Mycobacterial disease A31.9 CPT Codes Nebulizer Treatment - Nebulizer Treatment, initial or subsequent: 90554- Nebulizer/MDI RX initial, or Nebulizer Subsequent Treatment ([id number]) Time Spent (min) 17
[2023-11-10 08:57] VITALS: BP 132/60; PULSE 66; O2SAT 96; BMI 25.1
== END 2023-11-10 09:41 | disposition home or self-care (01) ==
PROVIDERS: PCP Internal Medicine; Visit Provider Hospitalist
DX: R91.8 Other nonspecific abnormal finding of lung field (principal); C34.11 Malignant neoplasm of upper lobe, right bronchus or lung; G89.12 Acute post-thoracotomy pain; A31.9 Mycobacterial infection, unspecified
CPT/HCPCS: 99214

== ENCOUNTER → 2023-11-10 08:46 | Outpatient (BNVA) | payer OTHER, SELFPAY | PROVIDERS: PCP Internal Medicine; Visit Provider Hospitalist | DX: R91.8 Other nonspecific abnormal finding of lung field (principal); C34.11 Malignant neoplasm of upper lobe, right bronchus or lung; A31.9 Mycobacterial infection, unspecified; G89.12 Acute post-thoracotomy pain | CPT/HCPCS: 94640; 99212 ==

== ENCOUNTER 2024-05-22 10:02 | Outpatient (REF) | payer OTHER, SELFPAY ==
[2024-05-22 13:38] LABS: Anion Gap 15 (12-20); Blood Urea Nitrogen 12 mg/dL (9-16); Calcium 9.7 mg/dL (8.4-10.2); Carbon Dioxide 29 mmol/L (22-29); Chloride 100 mmol/L (96-108); Estimated Glomerular Filt Rate > 60; Glucose Random 92 mg/dL (60-115); Magnesium 2.1 mg/dL (1.6-2.6); Potassium 3.7 mmol/L (3.3-5.1); Sodium 140 mmol/L (135-145)
== END 2024-05-22 10:03 | disposition home or self-care (01) ==
LOC: HO.CHCLDS 10:02
PROVIDERS: Visit Provider Internal Medicine
DX: R25.2 Cramp and spasm (principal)
CPT/HCPCS: 36415; 80048; 83735

== ENCOUNTER 2024-06-07 08:39 | Outpatient (REF) | payer OTHER, SELFPAY ==
[2024-06-07 14:00] LABS: Appearance Urine Clear; Color Urine Yellow; Glucose Urine UA Negative (Negative); Leukocyte Esterase Urine Trace (Negative); Nitrite Urine Negative (Negative); Specific Gravity - Urine 1.015 (1.005-1.025); UMIC TRIGGER UA YES; Urine Blood Negative (Negative); Urine Ketones Negative (Negative); Urine Protein Negative (Neg-Trace)
[2024-06-07 14:02] LABS: Bacteria Urine None Seen (None Seen); Hyaline Casts Urine 0-2 /LPF (0-2); RBC Urine 0-2 /HPF (0-2); Squamous Epithelial Cell Urine 0-2 /HPF (0-2); WBC Urine 0-5 /HPF (0-5)
== END 2024-06-07 08:40 | disposition home or self-care (01) ==
LOC: HO.CHCLDS 08:39
PROVIDERS: Visit Provider Internal Medicine
DX: N32.89 Other specified disorders of bladder (principal)
CPT/HCPCS: 81001

== ENCOUNTER 2024-08-01 09:19 | Outpatient (REF) | payer OTHER, SELFPAY ==
--- NOTE | ~2024-08-01 | MM_ITS ---
EXAMINATION: MM SCREENING DIGITAL BREAST TOMOSYNTHESIS, BILATERAL CLINICAL INFORMATION: Screening. Asymptomatic. COMPARISON: Mammography: Comparison is made with available priors TECHNIQUE: Digital breast mammography with tomosynthesis is performed in both the craniocaudal and mediolateral oblique views along with computer-aided detection (CAD). FINDINGS: There are scattered areas of fibroglandular density (ACR BI-RADS breast composition Category b). There are no significant masses, abnormal calcifications, or other abnormalities. MM/MM tomosynthesis screening BI IMPRESSION: No mammographic evidence of malignancy. ASSESSMENT: BI-RADS BI-RADS 1 - Negative RECOMMENDATION: Routine annual mammography screening. 1 year F/U This examination should not preclude the clinical evaluation of a suspicious palpable abnormality. This patient's information was entered into a reminder system with a target due date for their next mammogram. Electronically signed by: Nelia Guardado DO 08/19/2024 10:39 PM EDT
== END 2024-08-01 09:20 | disposition home or self-care (01) ==
LOC: HO.MAMMO 09:19
PROVIDERS: PCP Internal Medicine; Visit Provider Internal Medicine
DX: Z12.31 Encounter for screening mammogram for malignant neoplasm of breast (principal)
CPT/HCPCS: 77063; 77067

== ENCOUNTER → 2024-08-01 09:30 | Outpatient (BNV) | payer OTHER, SELFPAY | PROVIDERS: PCP Internal Medicine; Visit Provider Internal Medicine | DX: Z12.31 Encounter for screening mammogram for malignant neoplasm of breast (principal) | CPT/HCPCS: 77063; 77067 ==

== ENCOUNTER 2024-08-03 16:09 | Outpatient (REF) | payer OTHER, SELFPAY ==
[2024-08-03 17:48] LABS: MANUAL DIFF FLAG NO
[2024-08-03 18:04] LABS: Basophils Absolute Auto 0.1 X10*3/uL (0.0-0.2); Basophils Percent Auto 0.8 % (0-2); Eosinophils Absolute Auto 0.2 X10*3/uL (0.0-0.4); Eosinophils Percent Auto 2.4 % (0-4); Hematocrit 39.8 % (37.0-47.0); Hemoglobin 13.7 g/dl (12.0-16.0); Imm Gran Abs Auto 0.03 X10*3/uL (0.00-0.03); Imm Gran Pct Auto 0.4 % (0.0-0.4); Lymphocytes Absolute Auto 2.1 X10*3/uL (1.2-4.9); Lymphocytes Percent Auto 27.3 % (20-40); Mean Corpuscular HGB Conc 34.4 g/dl (31.0-35.0); Mean Corpuscular Hemoglobin 31.1 pg (27.0-33.0); Mean Corpuscular Volume 90.2 fL (80.0-98.0); Mean Platelet Volume 10.3 fL (9.4-12.3); Monocytes Absolute Auto 0.8 X10*3/uL (0.1-1.2); Monocytes Percent Auto 10.5 % (2-11); Neutrophils Absolute Auto 4.5 x10*3/uL (2.0-8.3); Neutrophils Percent Auto 58.6 % (45-73); Platelet Count 277 X10*3/uL (160-400); Red Blood Count 4.41 X10*6/uL (4.20-5.50); White Blood Count 7.6 X10*3/uL (4.8-10.8)
[2024-08-03 18:26] LABS: Anion Gap 14 (12-20); Blood Urea Nitrogen 11 mg/dL (9-16); Calcium 10.6 mg/dL (8.4-10.2); Carbon Dioxide 29 mmol/L (22-29); Chloride 92 mmol/L (96-108); Estimated Glomerular Filt Rate > 60; Glucose Random 103 mg/dL (60-115); Potassium 4.2 mmol/L (3.3-5.1); Sodium 131 mmol/L (135-145)
[2024-08-03 18:44] LABS: TSH reflex Free T4 2.72 uIU/mL (0.32-4.0)
== END 2024-08-03 16:10 | disposition home or self-care (01) ==
LOC: HO.CHCLDS 16:09
PROVIDERS: Visit Provider Internal Medicine
DX: I10 Essential (primary) hypertension (principal); R53.83 Other fatigue
CPT/HCPCS: 36415; 80048; 84443; 85025

== ENCOUNTER 2024-08-07 08:06 | Outpatient (REF) | payer OTHER, SELFPAY ==
[2024-08-07 14:56] LABS: Anion Gap 14 (12-20); Blood Urea Nitrogen 10 mg/dL (9-16); Carbon Dioxide 27 mmol/L (22-29); Chloride 103 mmol/L (96-108); Estimated Glomerular Filt Rate > 60; Glucose Random 100 mg/dL (60-115); Osmolality, Serum 291 mosm/kg (281-305); Potassium 4.9 mmol/L (3.3-5.1); Sodium 139 mmol/L (135-145)
== END 2024-08-07 08:07 | disposition home or self-care (01) ==
LOC: HO.CHCLDS 08:06
PROVIDERS: Visit Provider Internal Medicine
DX: E87.1 Hypo-osmolality and hyponatremia (principal)
CPT/HCPCS: 36415; 80048; 83930; 84300

== ENCOUNTER 2024-11-01 08:46 | Outpatient (AMB) | payer OTHER, SELFPAY ==
[2024-11-01 08:48] VITALS: BP 124/60; PULSE 84; O2SAT 97
--- NOTE | 2024-11-01 08:48 | MHC.OFFVIS ---
Vital Signs 11/01/24 08:48 Weight 138 lb 14.259 oz BP 124/60 Blood Pressure Location Rt brachial Position Sitting Pulse 84 Pulse Source Pulse Oximeter Pulse Oximetry (%) 97 Oxygen Delivery Method Room Air Intake Visit Reasons: COPD Allergies moxifloxacin [From AVELOX] Allergy (Unknown, Verified 11/01/24 08:56) UNKNOWN multiple medication sensitivit Allergy (Unknown, Uncoded 11/01/24 08:56) Unknown Medication List - Last Reconciled 11/01/24 by Nano Vargas LPN albuterol sulfate 90 mcg/actuation (Ventolin HFA) 2 puffs inhalation QID PRN 30 days amlodipine 10 mg PO DAILY aspirin 81 mg PO DAILY cetirizine 10 mg PO BID clopidogrel (Plavix) 75 mg PO DAILY ergocalciferol (vitamin D2) (Vitamin D2) 1,250 mcg PO QWEEK fluticasone furoate-vilanterol 100-25 mcg/dose (Breo Ellipta) 1 inh inhalation DAILY 30 days fluticasone propionate 50 mcg/actuation 1 - 2 sprays intranasal BID ibuprofen 600 mg PO BID loratadine 10 mg PO DAILY nitroglycerin 0.4 mg sublingual Q5M PRN omeprazole 20 mg PO BID rosuvastatin 40 mg PO DAILY sucralfate 1 g PO BID HPI Comments Details: 84-year-old woman who is status post [facility] right upper lobectomy and mediastinal lymphadenectomy for stage II B lung cancer done in August of 2020.? She has been followed with serial CT scans since that time her most recent being on 12/16/2021 which was compared with 10/22/2021.? She also had previous CT scans that were evaluated.? Findings on this CT scan shows stable superior segment right lower lobe peribronchial nodular opacities.? Of note, these are stable since September but slightly increased from previous CT scans.? She does report occasional shortness of breath but nothing new or different.? She denies cough, hemoptysis, unintentional weight loss, fevers, chills, or any new neurologic symptoms. 01/16/2022 the patient is here for a pulmonary follow-up visit. Overall she is doing okay. She does complaint of fatigue and also right-sided chest discomfort. Primary when lifting something she does discomfort. She does take Tylenol with good effect. She status post bronchoscopy. She had the interval worsening of the pulmonary nodules of the right lower lobe primarily superior segment. During the bronchoscopy demonstrated that her stump site was a little pronounced but biopsies were negative for any abnormalities. Just scarring. In addition to that she did have transbronchial biopsies of the right lower lobe superior segment demonstrating atypical edematous hyperplasia. 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 Her previous lung biopsy +KRAS mutation. Will refer to Oncology if she is a candidate of KRAS targeted therapy. The patient also has treated for H influenza. Completed antibiotics. 01/05/2023 the patient is here for pulmonary follow-up visit. She has been complaining of increasing chest tightness and wheezing. She also complains of pleuritic chest discomfort. To some degree has costochondritis. She did follow-up with her thoracic surgeon. She did have a PET scan. Showed mild activity in the nodular densities in the right hemithorax. She also complains or chills. She has been having increasing coughing wheezing. She may indeed have a smoldering infection resulting in the findings. Will go ahead and treat the patient for her wheezing with a long-acting combination inhaler and also continue her short-acting beta agonist. Will the also give her short course of doxycycline in case there is any smoldering Staph aureus. She is in the meantime the patient is agreeable to perform a bronchoscopy. We can assess for smoldering infection such as mycobacterial disease and others. The patient does not have aggressive therapy so therefore additional biopsies may not be warranted. We already now she has a typical edematous hyperplasia based on previous biopsies. 01/28/2023 the patient is here for a pulmonary follow-up visit. The patient continues to do well. She is status post bronchoscopy. Her cultures were all negative. We still waiting for the acid-fast bacilli cultures. She understands does take a few more weeks. She did have a lot of mucus burden the airways. We did treat him up as much as possible. No evidence of any endobronchial lesions noted on bronchoscopy. Her breathing is better. She still has a cough however. Intermittent. Her major complaint is the pain due to her surgery. On her right side. Sometimes it affects her sleep and sometimes it affects her ability of do her activities of daily living. She was given tramadol but it was too strong. Even taking half the dose was too strong. And she was given gabapentin 300 that was too strong as well. Therefore RO go ahead and give her ibuprofen that she can use as needed in addition or in conjunction with her tidal and I will decrease her gabapentin down to 100 mg. 05/05/2023 the patient is here for pulmonary follow-up visit. The patient overall is doing well. She continues to have a cough moderate severity. It bothers her. We again talked about the mycobacterial disease. 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 In view of her AH in her underlying symptoms will be reasonable to start her on macrolide therapy 3 times a week. Hopefully this can provide some relief. If the patient tolerates it we can also add additional double coverage to minimize resistance. She is also concerned about her mammogram that was deemed abnormal. She has to have a repeat study. In addition to that the patient has been dealing with significant back pain and sciatica. So therefore she is taking additional medication for that as well. Will try to minimize the amount of medication but just providing her the azithromycin. She responded well to the inhaler this is providing good results in with her breathing. Will follow-up in 3-4 months. She knows to get an EKG once she starts the medication to make sure that he QT interval is within normal limits while on the medication. 08/04/2023 the patient is here for pulmonary follow-up visit. The patient overall has been doing well. She does complaint of congested cough moderate severity. She has been on the azithromycin lb mg 3 times a week now for 3 months. She has not seen any significant improvement. Also, her CT scan his she still has tree in budding and also bronchiectatic changes all consistent with smoldering infection. Explained to the patient that it may be related to the fact that she is on the full dose of antimicrobial therapy. Although be difficult for her to tolerate the 3 medication cocktail. The patient has side hard time already taking 1 medication. However, I will give her sputum cough to take for culture. The meantime the patient will get a CPT device with the Acapella valve to help with bronchopulmonary hygiene. The patient also will continue with her respiratory inhaler as needed. In regards of the lung cancer history her CT scan is reassuring without any evidence of any recurrence. 11/10/2023 the patient is here for a pulmonary follow-up visit. She still has a congested cough. She could not tolerate the azithromycin so therefore she was stopped. She is no longer taking any antibiotics. She feels like she can not handle the cough okay. Hard time expectorating though. We did try nebulizer treatment in the office to see if this will be helpful but she did not see any significant difference. Therefore she can hold off. She also tried the Acapella valve but she got dizzy doing it so she just needs to be careful not to eat too fast. She has responded well to Mucinex in the past therefore she can use guaifenesin with DM as needed. I did send her script to the pharmacy. No additional imaging at this time. Will follow-up in 3-4 months and decide further imaging studies at that visit. If the patient has any worsening symptoms prior to that visit she can always call for an earlier assessment. 11/01/2024 the patient is here for a pulmonary follow-up visit. Since we last spoke she had symptoms that were concerning for a heart attack. She was evaluated at [facility]. The patient did have an echocardiogram demonstrating the crease EF 30-40%. Had a CT coronary artery demonstrating multivessel disease and ultimately underwent a cardiac catheterization demonstrating multivessel disease but appeared to be more chronic stenotic areas that did not match the acute findings on the echo. Therefore, the decided to not intervene. She was medically treated. Ultimately was discharged. Currently doing well. She did follow-up with thoracic surgery and she did have an imaging studies there and she was told that she did not have to come back for another year. Ultimately she is feeling well she has not had to use his rescue medication. Patient is otherwise without any other complaints. [facility] Medical History (Updated 11/01/24 @ 21:52 by Kory Cartwright MD) Cardiomyopathy Abdominal pain 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 Primary cancer of right upper lobe of lung (~2019) History of pneumonia Seasonal allergies Hypertension Surgical History History of blepharoplasty (~07/17/14) History of bronchoscopy (~07/2020) History of chest tube placement (~09/27/20) S/P lobectomy of lung (~09/17/20) History of rectal surgery H/O tubal ligation Family History Sister Liver transplant recipient Father Stroke Mother Diabetes mellitus Maternal Uncle Lung cancer Social History Household Members: None Housing: Apartment Do you presently have visiting nurse or other home services: No Unable to assess alcohol history related to: Unknown Comment: pt states it is tolerable Patient Tobacco Use Status: Former Tobacco user Advance Directives Date on File: 09/02/20 Review of Systems Const Denies chills Eyes Denies change in vision ENT Denies epistaxis Card Denies chest pain Resp Denies chest congestion, Reports cough, Denies pain on inspiration and Denies pain with cough GI Reports no additional complaints Musc Reports back pain Physical Exam Vital Signs: Last Vital Signs Pulse 84 11/01/24 08:48 BP 124/60 11/01/24 08:48 Pulse Ox 97 11/01/24 08:48 Oxygen Delivery Method Room Air 11/01/24 08:48 Const General: alert Neck Neck: Yes normal visual inspection, Yes full ROM and Yes no lymphadenopathy Chest Chest palpation & inspection: normal inspection of the chest Resp Effort & Inspection: normal respiratory effort Auscultation: clear to auscultation bilaterally Cardio Rate: regular rate Rhythm: regular rhythm Heart sounds: S1 normal heart sound present and S2 normal heart sound present GI Palpation (GI): Soft to palpation and nontender Auscultation: normal bowel sounds Skin General skin exam: rashes and/or lesions noted Assessment & Plan Assessment & Plan (1) Multiple pulmonary nodules: Code(s): R91.8 - Other nonspecific abnormal finding of lung field Category: Medical (2) Primary cancer of right upper lobe of lung: Onset Date: ~2019 Comment: (Adenocarcinoma, Pathological stage: pT3 pN0 MX, AJCC stage: II B - s/p RUL lobectomy 08/2020) Code(s): C34.11 - Malignant neoplasm of upper lobe, right bronchus or lung Category: Medical (3) Post-thoracotomy pain syndrome: Code(s): G89.12 - Acute post-thoracotomy pain Category: Medical (4) Mycobacterial disease: Code(s): A31.9 - Mycobacterial infection, unspecified Category: Medical (5) Cardiomyopathy: Code(s): I42.9 - Cardiomyopathy, unspecified Category: Medical Qualifiers: Cardiomyopathy type: ischemic Qualified Code(s): I25.5 - Ischemic cardiomyopathy Plan continue Breo daily VELMA as needed stopped Gabapentin [address] chest 1 yr at [facility] F/U 8-12 months Coding Level of Care Code Est Pt Level 4 (70421) Diagnoses Multiple pulmonary nodules R91.8 Primary cancer of right upper lobe of lung C34.11 Post-thoracotomy pain syndrome G89.12 Mycobacterial disease A31.9 Ischemic cardiomyopathy I25.5 Cardiomyopathy type: ischemic Time Spent (min) 16
== END 2024-11-01 11:03 | disposition home or self-care (01) ==
PROVIDERS: PCP Internal Medicine; Visit Provider Hospitalist
DX: R91.8 Other nonspecific abnormal finding of lung field (principal); C34.11 Malignant neoplasm of upper lobe, right bronchus or lung; G89.12 Acute post-thoracotomy pain; A31.9 Mycobacterial infection, unspecified; I25.5 Ischemic cardiomyopathy
CPT/HCPCS: 99214

== ENCOUNTER → 2024-11-01 08:46 | Outpatient (BNVA) | payer OTHER, SELFPAY | PROVIDERS: PCP Internal Medicine; Visit Provider Hospitalist | DX: R91.8 Other nonspecific abnormal finding of lung field (principal); C34.11 Malignant neoplasm of upper lobe, right bronchus or lung; A31.9 Mycobacterial infection, unspecified; I25.5 Ischemic cardiomyopathy; G89.12 Acute post-thoracotomy pain | CPT/HCPCS: 99212 ==

== ENCOUNTER 2025-01-08 08:11 | Outpatient (REF) | payer OTHER, SELFPAY ==
--- OUTSIDE RECORDS SUMMARY | 2025-01-08 08:23 | XMS_ITS | Data Portability ---
Author Organization [employer] in - [employer] Address [address] [place] [id number] Care Team Providers Care Slitter Creaser Slotter Helper Name Role Phone [facility] Referring Provider HIM CCA OTHER Assessment Encounter Date Assessment Date Assessment LastModified by Organization Details LastModified Time 03/24/2023 03/24/2023 I provided real -time medical direction via phone for this encounter, and was available for additional phone based assistance as needed. I have reviewed and agree with the Assessment and Plan as documented by the Slat Basket Maker. Patient given the opportunity to ask questions. [email or web address] Not available 03/24/2023 11:04:05 08/07/2024 08/07/2024 I have reviewed and agree with the assessment and plan as documented by the cna hha. I provided real time medical direction for this encounter and was immediately available to provide additional phone based assistance as needed. History as noted by cna hha. Pt with history of HTN (recently difficulty to control), HLD, and lung carcinoma. Pt reports that for 2-3 days she has noted intermittent lightheadedness with fatigue and dyspnea on exertion. No chest pain. No recent cough, vomiting or fevers. On exam, BP elevated 177/91. Lungs clear b/l. EKG with sinus rhythm. 1-2mm MAME noted V2, V3 and ? slight STD III, aVF. Impression: Pt with history as noted, now reporting 2-3 days of intermittently feeling lightheaded with fatigue and exertional dyspnea, with no chest pain. BP elevated 177/91. EKG reveals MAME in leads V2, V3 and possible inferior STD. The pt's EKG changes may be chronic but I currently do not have any access to old EKG, so patient will be transported via 911 ambulance to [facility] ED for evaluation to r/o ACS. This plan is discussed with the pt and she is medicated with 324mg of po ASA. Slat Basket Maker arranges for 911 transport to [facility] and I have called an expect describing the EKG changes with the triage ED RN as well. [email or web address] Not available 08/07/2024 15:05:33 01/01/2025 01/01/2025 Ms. Vogt is a 84 yo F with HTN (recently difficulty to control), HLD, and lung carcinoma who called today for Per patient, doesn't normally get headaches. Patient reports L sided and posterior aspect of the headache. No falls or fevers. Headache has been persistent for the last week. In remission of lung cancer, everything is good. Blood pressure has been elevated more recently. Denies any vision changes. No sensitivity to light. Headache has been gradual and persistent. Has been trying some tylenol to which it's been persistent. Would recommend going to the ER for imaging given the cancer history and persistence of the REED sx, I'd recommend CT imaging and further inpatient evaluation. Concern for possibly metastatic disease process vs ICH. Considered also HTN urgency vs emergency. Ultimately, we're limited in the home setting and would rec I provided real -time medical direction via phone for this encounter, and was available for additional phone based assistance as needed. I have reviewed and agree with the Assessment and Plan as documented by the Slat Basket Maker. We discussed the diagnostic uncertainty of home visits and the risk associated with this. The patient given the opportunity to ask questions. Ultimately signed out to Ariela BLAKE at [facility] ER at 5:50pm. [email or web address] Not available 01/01/2025 18:56:27 Plan of Treatment Reminders Order Date Submit Date Provider Last Modified By Organization Details Last Modified Time Details Appointments None recorded. Lab urinalysis, dipstick 2023 [address] [employer] [address], [address], 4 14:57:48 Referral None recorded. Procedures None recorded. Surgeries None recorded. Imaging electrocard iogram [address], [address], 3 10:56:24 electrocard iogram [address], [address], 4 14:57:50 Medication Orders ketorolac 15 mg/mL injection solution 2022 023 [email or web address] 0 Not available 3 11:06:56 aspirin 81 mg chewable tablet 2023 [email or web address] 4 14:58:38 Patient TargetsNo targets recorded. Patient InstructionsNo instructions recorded. Reason for Referral None Reported. Results Created Date Observation Date Name Description Value Unit Range Abnormal Flag Note LastModifiedBy Organization Detail LastModifiedTime 04/16/2004/16/2023 elect bee wiseman am No observ ation record ed. [address], [address], 04/16/2023 10:56:23 04/16/20 23 04/16/2023 progr ess disch arge summa ry* No observ ation record ed. [email or web address] Not Available 2022 19:51:33 08/07/20 24 08/07/2024 elect bee wiseman am No observ ation record ed. [address], [address], 08/07/2024 14:57:49 Result Notes None recorded. Procedures Surgical History None recorded. Imaging Results Imaging Date Name Status LastModified by Organization Details LastModified Time 04/16/2023 electrocardiogram completed [address], [address], 04/16/2023 10:56:23 04/16/2023 progress discharge summary* completed [email or web address] Information not available 04/16/2023 19:51:33 08/07/2024 electrocardiogram completed [address], [address], 08/07/2024 14:57:49 Procedure Notes None recorded. Medical Equipment None Reported. Allergies No known drug allergies Medications Name Sig Start Date Stop Date Status Note LastModified by Organization Details LastModified Time ketorolac 15 mg/mL injection solution 15 mg IM x 1 2022 active Not Available Not Available Not Avai lable primidone 50 mg tablet TAKE ONE-HALF TABLET BY MOUTH EVERY DAY AT BEDTIME active Not Available Not Available N ot Available tramadol 50 mg tablet TAKE 1 TABLET BY MOUTH AT BEDTIME active Not Available Not Available No t Available triamcinolone acetonide 0.1 % topical cream APPLY A THIN LAYER TOPICALLY TO AFFECTED AREA(S) ONCE DAILY active Not Available Not Available N ot Available amlodipine 10 mg tablet TAKE ONE TABLET BY MOUTH EVERY DAY active Not Available Not Available No t Available gabapentin 300 mg capsule TAKE ONE CAPSULE BY MOUTH EVERY DAY AT BEDTIME active Not Available Not Available N ot Available omeprazole 20 mg capsule,delay ed release active Not Available Not Available N ot Available aspirin 81 mg chewable tablet Chew 4 tablets by oral route. 2023 active Not Available Not Available Not Avai lable codeine 10 mg-guaifenesi n 100 mg/5 mL oral liquid TAKE 10 ML BY MOUTH EVERY 8 HOURS NEEDED FOR COUGH active Not Available Not Available No t Available polyethylene glycol 3350 17 gram/dose oral powder DISSOLVE 17GM IN WATER AND DRINK THREE TIMES A DAY active Not Available Not Available No t Available fluticasone propionate 50 mcg/actuation nasal spray,suspens ion INHALE 1 SPRAY IN EACH NOSTRIL ONCE DAILY active Not Available Not Available N ot Available doxycycline hyclate 100 mg tablet TAKE ONE TABLET BY MOUTH TWICE A DAY FOR 5 DAYS active Not Available Not Available No t Available amoxicillin 875 mg-potassium clavulanate 125 mg tablet TAKE ONE TABLET BY MOUTH TWICE A DAY FOR 10 DAYS active Not Available Not Available No t Available Allergy Relief (loratadine) 10 mg tablet TAKE ONE TABLET BY MOUTH EVERY DAY active Not Available Not Available No t Available Myrbetriq 25 mg tablet,extend ed release TAKE ONE TABLET BY MOUTH EVERY DAY SWALOW WHOLE WITH WATER. DO NOT CRUSH OR CHEW AND OR DIVIDE active Not Available Not Available No t Available Myrbetriq 50 mg tablet,extend ed release TAKE ONE TABLET BY MOUTH EVERY DAY WITH WATER. DO NOT CRUSH, CHEW AND/OR DIVIDE. active Not Available Not Available No t Available Vitals Date Recorded Body temperature Respiratory rate Body height Heart rate Oxygen saturation Oxygen saturation in Arterial blood by Pulse oximetry Body weight Systolic blood pressure Diastolic blood pressure Provider Name and Address Organization Details Last Updated DateTime 3 98.1 [degF] 14 /min 152.4 cm 68 /min 96 % 96 % 09899 g 159 mm[Hg] 78 mm[Hg] Not Available [facility] 3 11:33:38 Date Recorded Heart rate Body temperature Respiratory rate Oxygen saturation Oxygen saturation in Arterial blood by Pulse oximetry Systolic blood pressure Diastolic blood pressure Provider Name and Address Organization Details Last Updated DateTime 4 81 /min 96 [degF] 16 /min 96 % 96 % 177 mm[Hg] 91 mm[Hg] Not Available [facility] [employer] 4 14:44:55 Date Recorded Heart rate Body weight Respiratory rate Body temperature Body height Oxygen saturation Oxygen saturation in Arterial blood by Pulse oximetry Systolic blood pressure Diastolic blood pressure Provider Name and Address Organization Details Last Updated DateTime 5 55 /min 57980.8 8 g 16 /min 98.4 [degF] 147.32 cm 97 % 97 % 184 mm[Hg] 81 mm[Hg] Not Available [facility] 5 17:14:20 Date Recorded Heart rate Respiratory rate Oxygen saturation Oxygen saturation in Arterial blood by Pulse oximetry Body temperature Body height Respiratory rate Oxygen saturation Oxygen saturation in Arterial blood by Pulse oximetry Body weight Body temperature Heart rate Body height Systolic blood pressure Diastolic blood pressure Systolic blood pressure Diastolic blood pressure Provider Name and Address Organization Details Last Updated DateTime 3 67 /min 18 /min 95 % 95 % 98.6 [degF] 152.4 cm 18 /min 95 % 95 % 05871.8 8 g 98.6 [degF] 67 /min 152.4 cm 161 mm[Hg] 72 mm[Hg] 161 mm[Hg] 72 mm[Hg] Not Available [facility] 3 11:45:41 Date Recorded Body weight Body mass index (BMI) Provider Name and Address Organization Details Last Updated DateTime 03/24/2023 90418.93 g 27.3 kg/m2 Nano Ambriz MD [address] [facility],[address], [place], [address], [facility] [employer] [facility] 03/24/2023 10:53:55 Date Recorded Body temperature Heart rate Body weight Respiratory rate Oxygen saturation Oxygen saturation in Arterial blood by Pulse oximetry Systolic blood pressure Diastolic blood pressure Provider Name and Address Organization Details Last Updated DateTime 3 97.3 [degF] 70 /min 99206.8 8 g 16 /min 97 % 97 % 178 mm[Hg] 78 mm[Hg] Not Available [facility] [employer] 3 10:47:15 Social History None recorded. Functional Status None recorded. Mental Status None recorded. Family History Nothing Reported. Medical History No medical history recorded. Gynecological HistoryNo gynecological history recorded. Obstetrics History GPAL:G 0 P 0 0 0 0 Past Encounters Encounter ID Performer Location Encounter Start Date Encounter Closed Date Diagnosis/Indication Diagnosis SNOMED-CT Code Diagnosis ICD10 Code Diagnosis Note [id number] Mitch Wen MD Main - [address] [address] 03/03/2022 09:24:44 09/15/2022 09:34:39 [id number] Gh[facility]al Griffin [facility] [address] [place] [id number] 10/26/2022 20:15:23 10/28/2022 11:33:11 Elderly vasovagal syndrome 221037857 R55 [id number] [facility]relis Ramos [facility] [address] [place] [id number] 01/06/2023 16:42:28 01/08/2023 09:59:11 Malaise and fatigue 013115138 R53.81 [id number] [facility] [address] [place] [phone] 03/24/2023 10:51:19 03/25/2023 12:28:49 Low back pain 076989086 M54.50 likely sciatica- advised to avoid uncomforta ble movements- advised ice / wrapped in a towel alternatin g w/ gentle heat q 3-4H w/a to affected area- will give 1 dose ketorolac- advised no advil til tonight- based on weight may take Tylenol 500 mg q 6 hr prn. To f.u with pcp this week re medication ? imaging. Advised if develops uncontroll ed pain/ focal numbness/ weakness/ unable to walk or sudden loss of urinary or bowel control to go to the ER immediatel y- she verbalized understand ing of jeremy ordaz. [id number] Venu Castellano MD Main - [facility] [address] [place] [phone] 04/16/2023 10:46:49 04/20/2023 12:31:43 Lightheadedness 244017420 R42 Patient reports several days of dizziness associated with a new medication (guaifenas in with codeine). She has no vertigo. She has a headache to the very top of her head which is completely relieved by acetaminop hen but does return. She describes associated sinus pain and neck pain, which she thinks could be from sleeping wrong. On cna hha examinatio n the neck and sinus pain is reproducib le. I think this is most likely an adverse reaction from the codeine. I have considered the diagnosis of subdural or vascular process (e.g. dissection ) but the reproducib ility and duration of symptoms with a normal neurologic al examinatio n makes it less likely. We discussed together that we were not able to obtain imaging in the home or perform a comprehens yaritza workup so we were not able to rule out all life threats in this urgent care setting. She reports that she has a PCP appointmen t on Wednesday and feels comfortabl e waiting until then. She will stop taking the codeine. Slat Basket Maker reviewed red flags with the patient and she will seek immediate medical attention if her symptoms worsen in the interim. [id number] Sol Malone MD Main - [facility] [address] [place] [phone] 09/01/2023 11:33:14 09/02/2023 00:36:54 Abdominal pain 33936688 R10.9 I provided real -time medical direction via phone for this encounter, and was available for additional phone based assistance as needed. I have reviewed and agree with the Assessment and Plan as documented by the Slat Basket Maker. Patient given the opportunit y to ask questions. 83 yo w/ COPD, GERD (on 20mg omeprazole BID) s/p lung surgery 3mo ago on prolonged course of azithro (presumabl y for JAMAL, but pt unable to confirm) p/w GI discomfort x3-5d. Already discussed this with her pulmonolog ist who recommende d holding azithro for a few days and present to clinic for labs and imaging (planned for tomorrow). Denies hematochez ia, melena, hematemesi s, hemopytsis , dizziness/ lightheade dness. Recommende d follow up with pulmonolog ist as planned as I agree with need for imaging. In the interval offered trial of 40mg BID omeprazole (double current dose) and 500 cc LR (declined the latter. [id number] Jonathan Higuera MD Main - [facility] [address] [place] [id number] 08/07/2024 14:44:35 08/07/2024 22:55:53 Dyspnea on exertion 49938666 R06.09 [id number] ABHIJIT PLEITEZ MD Main - [facility] [address] [place] [phone] 01/01/2025 17:05:53 01/02/2025 17:16:25 Headache 08461778 R51.9 Health Concerns Section Related Observation LastModified by Organization Detai ls LastModified Time None Recorded Concern Status LastModified by Organization Details LastModified Time None Recorded Advance Directives Directive None Recorded Payers Encounter Date Sequence Insurance Name Policy Number Policy Palmer Covered Member ID Palmer Member ID Guarantor Name 03/24/2023 1 [facility] [employer] - DOS PRIOR TO 2023 - DUAL ELIGIBLE (MEDICARE REPLACEMENT/ADV ANTAGE - HMO) Elda Vogt [id number] Elda Lulu Sin 04/16/2023 1 [facility] [employer] - DOS PRIOR TO 2023 - DUAL ELIGIBLE (MEDICARE REPLACEMENT/ADV ANTAGE - HMO) Elda Vogt [id number] Elda Lulu Sin 09/01/2023 1 [employer] [facility] [employer] - DOS ON OR AFTER 2023 - DUAL ELIGIBLE - NURSING HOME OPTIONS AND ONE CARE (MEDICARE REPLACEMENT/ADV ANTAGE - HMO) Elda Vogt [id number] Elda Lawson Sin 08/07/2024 1 [facility] [employer] - DOS ON OR AFTER 2023 - DUAL ELIGIBLE - NURSING HOME OPTIONS AND ONE CARE (MEDICARE REPLACEMENT/ADV ANTAGE - HMO) Elda Vogt [id number] Elda Lawson Sin 01/01/2025 1 [facility] - DOS ON OR AFTER 2023 - DUAL ELIGIBLE - NURSING HOME OPTIONS AND ONE CARE (MEDICARE REPLACEMENT/ADV ANTAGE - HMO) Elda Vogt [id number] Elda Vogt Notes Date Note Type Note Provider Name and Address Organization Details Recorded Time 03/24/2023 text/html [facility] Nursing Assessment: Reason For Request: pain Chief Complaints: Pain PMH: Cancer, Hypertension Allergies: Unknown Pain Assessment: Level 10 out of 10 Comments: Member c/o back and hip side on left. Member denies any injury . Member has had sciatic pain in the past. Member has pain when sitting. Member takes advil for the pain . Member has not been seen by a neurologist, per member they gave her something and the pain went away Verified identity by SEGMD: Hx HTN / adeno CA of the lung/vit D deficiency/overactiv e bladder(on Mybetriq). Pain started last Wednesday- No numbness / tingling/ focal weakness. Pain worse w/ movement ie bending, walking, rolling over in bed. Pain rad to left hip and thigh. Denies changes on bladder control or any loss of bowel control. No Uti s/s- no fever/ chills. Char reports no hx of kidney dis and is not on anticoagulants- she reports she is approved by pcp to take advil 400 mg q 12 hr- taking only at hs- LD last night. Took one dose APAP 500 mg w/out relief several days ago. hCar has had APAP/ codeine/ gabapentin and Tramadol in the past for pain- did help, but does not like how they made her feel................ .................... .................... .................... .................... .................... .................... ...... Slat Basket Maker Note From Charla Martinez: Sent to a call for a pt complaining of back and left hip pain. SC8 arrives on scene, pt is alert and oriented, airway is patent. Pt appears to ambulate without issue. Pt complains of constant left lower back pain radiating to left hip and left lateral thigh starting on Wednesday and worsening daily. Pt states pain worsens with movement, sitting down/standing up, rolling over in bed. Pt advised to take Advil 400mg q 12 hrs as needed. Pt tried taking Tylenol 500mg once daily a few days ago, but since has been taking Advil 400mg before bed. Pt states she also took Advil 200mg yesterday afternoon, then 400mg before bed with little effect. Pt states she's had sciatic pain several years ago, but doesn't remember what medication she was given. Pt denies headache, dizziness, cp, sob, n/v/d, abd pain, fever, urinary/bowel incontinence, fever, or loc. Pt states she has multiple allergies to medications, but cannot remember them. BP:161/72, P:67, RR:18, SpO2:95% RA, T:98.6; Head: unremarkable; lung sounds: clear bilaterally; Abdomen: soft, non-tender, no distention; Back: no tenderness noted; Extremities: (+CMSx4), normal range of motion, no tenderness noted; Skin: pink, warm, dry; C consulted and orders Ketorolac 15mg IM. Pt is advised not to take any advil until bedtime tonight. Pt advised to take Tylenol 500mg q6 hrs, and follow up with PCP tomorrow. Ketorolac 15mg IM administered without incident. Red flags discussed. Pt has no further questions. .................... .................... .................... .................... .................... .................... .................... . Disposition: Fulfilled Nano Ambriz MD [address] [facility],[address], [place], [address], [employer] [facility] 03/24/2023 15:40:30 04/16/2023 text/html [facility] Nursing Assessment: Reason For Request: HTN Denies: Palpitations, feeling dizzy Chest pain, increased fatigue CHF history, increased swelling and edema Weakness/tachycardia Chief Complaints: Syncope/Dizziness/Li ghtheadedness, Fever/Chills, Headache, Weakness/Lethargy PMH: Cancer, Hypertension Allergies: No Known Pain Assessment: Level 10 out of 10 Comments: Member c/o top of head, neck pain , light headed. Member feels it could be her HTN . Member took her meds this am 0630 , does not know her meds she takes. Member just feels off. Member is alone but has a lifeline. Denies sob/ chest pain Member was able to eat and drink this am. RED FLAGS reviewed with member of when to press lifeline, sob/ chest pain Verified identity .................... .................... .................... .................... .................... .................... .................... . Slat Basket Maker Note From Beto Viera: pt requesting visit for feeling of light headiness and dizziness for a few days. pt states she has also been having left shoulder soreness that goes into her neck as well as sinus pressure and headaches. Pt states she normally does not get headaches. When asked if the pt has started any new medications, pt states she has been taking her codeine with guiafenesin over the past few days. Shoulder pain is reproducible. Sinus pressure is reproducible. Pt has Loratadine but has not taken it, stating she only takes it as needed. Vitals assessed while sitting and standing with no major changes. 12 lead ecg performed, normal sinus rhythm , unremarkable for stemi/nstemi.Pt has been taking tylenol and ibuprofen with relief of shoulder and neck pain. Pt states she sees her PCP on wednesday but wanted an evaluation today in case it was her blood pressure causing this. [facility] contacted. [facility] recommends the pt stop taking the codeine medication. Pt was presented with all possible reasons for her feeling the way she does, pt was given the option of stopping the codeine and waiting at home and see how everything goes or go to the hospital for head imaging to rule out possible intracranial issues. Pt does not believe it is anything intracranial and will stop the codeine at home and wait to see her doctor on wednesday. Pt educated on s/s warranting a 911 call/trip to the hospital such as chest pain, sob, severe headache, blurred or double vision. .................... .................... .................... .................... .................... .................... .................... . Disposition: Fulfilled Venu Castellano MD [address] [place] [address],[address], [place], [address], [employer] [facility] 04/16/2023 11:31:23 09/01/2023 text/html [facility] Nursing Assessment: Reason For Request: PT reporting she feels sick Chief Complaints: Syncope/Dizziness/Li ghtheadedness, Abdominal Pain PMH: Cancer, Hypertension Allergies: Unknown Comments: Member reports she was seen in the ER on Wednesday for medication reaction - SUCRALFAEE 1 gm - Member reports she is feeling light headed with abdominal discomfort - Decreased energy -SOB with chills - Denies CP - Member declines PCP and ER services - Member is requesting a wellness check - Samaria BLAKE .................... .................... .................... .................... .................... .................... .................... . Slat Basket Maker Note From Shlomo Henry: Pt caox3 answers door with a steady gait. Pt appears nervous, complains of upper abdominal pain, diffuse, pain increases when she eats. Pt states shes been moving her bowels normally, takes miralax. Pt reports she is on antibiotics after a lung operation x 3 months. Pt reports low appetite, denies nausea, vomiting. Pt complains of tiredness. Pt states she drinks a lot of water. Pt denies urinary symptoms. Pt denies chest pain or radiation, difficulty breathing, or any other. Pt pink warm and dry, secondary exam unremarkable. BMP and UA values to [facility], both negative. Urine clear, pale yellow, no odor. ECG to . PT states she has blood work and an xray scheduled tomorrow. Further discussion reveals pain increases when she visits the doctors office, and is higher during this visit. Pt encouraged to tell her PCP this. [facility] advises pt to take omeprazole 40mg once a day. Pt refuses offered IV fluid. Red flags and pt education discussed. .................... .................... .................... .................... .................... .................... .................... . Disposition: Fulfilled Sol Malone MD [address] [facility],[address], [place], [address], [facility] 09/01/2023 23:44:15 08/07/2024 text/html This was a supervised home visit with cna hha Wilder Shaffer. 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 NKDA. Mbr called in to the CRU dept asking that the Slat Basket Maker to come out to see her due to dizziness at times, weakness, sob intermittent. Denies chest pain, or headache. Mbr just came back from Clinic and they are adjusting anti-hypertensives and Mbr could not recall what her last BP was. Mbr declining ER and hs [facility] if needed. Instructed Mbr to use [facility] if she develops worsening s/s and she agreed to do. This CRU RN placed INSTTOMMY referral in for Mbr today. Notified CP via GC activity. .................... .................... .................... .................... .................... .................... .................... . CRC Nurse Triage Notes (Mark Anthony Quevedo): Chief Complaints: Hypertension, Shortness of Breath/Dyspnea, Syncope/Dizziness/Li ghtheadedness PMH: COPD/Asthma, Cancer, Hypertension Comments: HPI reviewed by this RN, no further information needed to process visit -Ofelia Quevedo RN Slat Basket Maker Organization Information for Wilder Shaffer Legal Name: [facility] Address: [address] [place] [address], [place]ASSANDRA Sosa [id number], Pneumatic Hoist Operator: Vamsi Delvalle MD [facility] No.: [id number] Slat Basket Maker POC Test Results from Wilder Shaffer - ALS Urine Dipstick (14:35:07) Urine leukocytes: 3+ ADRIANO Urine nitrites: - NIT Urine urobilinogen: - URO Urine protein: trace PRO Urine pH: 5.0 pH Urine blood: - BLO Urine specific gravity: 1.005 SG Urine ketones: - KET Urine bilirubin: - ED Urine glucose: - GLU EKG (14:42:01) EKG test performed. Attachments uploaded as part of this test result can be found under Documents section. .................... .................... .................... .................... .................... .................... .................... . Slat Basket Maker Note From Wilder Shaffer: Pt reporting several days of intermittent dizziness, fatigue and SOB with exertion and generalized weakness. Pt denies CP, SOB at rest, f/n/v/d. Pt is alert, NAD. Hypertensive, VS otherwise stable. Lower left rhonchi. Benign ABD exam. No LE edema. EKG uploaded. [facility] contacted and recommends ED eval. 911 initiated for transport [facility]. [facility] [place] [facility]. .................... .................... .................... .................... .................... .................... .................... . Disposition: García Jonathan Higuera MD [address] [facility],[address], [place], [id number], [employer] 08/07/2024 15:55:34 01/01/2025 text/html CRC Nurse Triage Notes (Shabnam Delgado - RN): Reason For Request: Pt reporting an awful headache + dizziness>noting she has a problem with her blood pressure Patient Reports: Head pain not relieved by medication greater than 8 hours; Head pain greater than 8 hours -unrelated to falls or injury; Dizziness with positional change Denies: Worst Headache of life New onset of vision loss Sudden onset -unilateral weakness/gait disturbance Fall with head strike and altered LOC New onset of Slurred speech or difficulty finding words Sudden Mental status changes Head pain with fever chills and neck pain Seizure activity Head pain with nausea vomiting Sensitive to light Chief Complaints: Headache, Dizziness, Hypertension PMH: Cancer, Hypertension, COPD/Asthma PMH Reviewed at 01/01/2025:18 Allergies Reviewed at 01/01/2025:18 Comments: Lpn Medical Assistant verified the name//address and phone number. PT calling for REED pain . She denies having REED in the past. She has been having for a few days. She is feeling dizzy. She takes her BP meds in the evening because it makes her drowsy but she feels this is different. She took her BP a month ago, 156/64 . She took a tylenol at 0300, it did resolve it but it came back. She denies any nausea / vomiting or coughing. She denies any chest pain or sob. She takes losartan 25 mg and amlodipine. She has had no med change. PMH LUNG CANCER > no treatment at this time,remission She has allergy list in home Education provided on the response time and the Patient was advised to monitor reported s/s and seek emergency treatment if needed .................... .................... .................... .................... .................... .................... .................... . Slat Basket Maker Note From Maury Howe: [facility] makes pt contact a 84 yo F CC of a headache with associated HTN. [facility] obtains vital signs. PT does have a higher than normal blood pressure. PT explains for the past week her blood pressure as been getting higher and her headache has been getting worse. PT explains she never gets headaches. Pain is located on the left side of the head and the occipital lobe region. No recent falls or traumas. PT took Tylenol which relieved the headache but once it wore off the headache came back. PT complains of dizziness and also not feeling well because of the headache. PT has a hx of lung cancer but in remission, a NSTEMI that was intervened with fibrinolytics back in July of 2024, no stents were placed. PT denies vision changes but does have some pain above the eyes. pt denies chest pain, sob, n/v. No other symptoms other than above mentioned. PT usually takes bp med around 4pm but explains her nurse told her to hold off tonight. unsure as of why. [facility] contacts [facility] and explains above mentioned. [facility] recommends pt go to ed for a head scan and a work up due to her age and past medical hx. PT agrees and understands. [facility] contacts 911 and [facility] transport patient to [facility]. [facility] deonte. .................... .................... .................... .................... .................... .................... .................... . [facility] Consulted: Abhijit Pleitez .................... .................... .................... .................... .................... .................... .................... . Disposition: Fulfilled ABHIJIT PLEITEZ MD [address] [facility],[address] [facility], [place], [address], [employer] 01/01/2025 18:56:31 OBGyn Episode No OBEpisode recorded.
--- OUTSIDE RECORDS SUMMARY | 2025-01-08 08:23 | XMS_ITS | Encounter Summary ---
Author Organization [employer] Address [address] [facility] [address] [place] [address] Care Team Providers Care Phone Specialist Name Role Phone Douglas Swift MD Primary Care Provider [phone] Reason for Visit * Reason Onset Date Comments Nurse Triage 01/04/2025 Encounter Details Date Type Department Care Team (Late st Contact Info) Description 01/04/2025 Telephone [facility] [address] [place], [place] [phone] Douglas Swift MD [address] [place], [place] [phone] Nurse Triage Social History Tobacco Use Types Packs/Day Years Used Date Smoking Tobacco: Former Cigarettes 1 18 Passive Smoke Exposure: Never Smokeless Tobacco: Never Alcohol Use Standard Drinks/Week Comments Never 0 (1 standard drink = 0.6 oz pur e alcohol) Depression Answer Date Recorded Patient Health Questionnaire-9 Score 1 04/19/2023 Housing Stability Answer Date Recorded What is your housing situation today? I have cayden eli 05/09/[address] you li ve. Do you have problems with any of the following? None of the above 05/09/2024 Food Insecurity Answer Date Recorded Within the past 12 months, y ou worried that your food would run out before you got money to buy more: Never True 05/09/2024 Within the past 12 months,th e food you bought just didn't last and you didn't have enough money to get more: Never True 09/2024 Transportation Answer Date Recorded In the past 12 months, has l ack of transportation kept you from medical appts, meetings, work or from getting things needed for daily living? No 05/09/2024 Utilities Answer Date Recorded In the past 12 months, has t he electric, gas, oil or water company threatened to shut off services in your home? No 05/09/2024 Depression Answer Date Recorded Patient Health Questionnaire-2 Score 0 05/22/2024 Comments Unknown Sex and Gender Information Value Date Recorded Sex Assigned at Female 09/28/2022 10:15 AM EDT Legal Sex Female 10:15 AM EDT Gender Identity Female 09/28/2022 10:15 AM EDT Sexual Orientation Choose not to disclose 2021 10:15 AM EDT documented as of this encounter Miscellaneous Notes * Telephone Encounter - Jacey Porter, JAUN - 01/04/2025 2:53 PM EST Triage call returned to patient who reports that she just feels off has had a headache that though improved is still present. Was seen in her home with [facility] and then was in [facility] ED for evaluation of headache and dizziness. Patient reports she was held for observation and discharged to home with med changes. Patient reports that she is on Losartan 50mg daily and Amlopidine 5mg daily. Patient reports that she has fatigue and feels off balance Patient reports that discharge paperwork is incorrect. ( Note is in chart) No discharge meds listed. Patient lives alone and is anxious that symptoms persist. Reports that she is drinking a good volume of fluid and that she felt dehydrated after being in the ED. Voiding at baseline. Disposition reviewed and patient in agreement with plan. Reviewed with patient home care recommendations and reasons to call back. Pt verbalized understanding and agrees. ASK/SDC/CHC/PCP tomorrow at 2pm. Multiple (2) protocols were used on this call. Disposition for Call: See in Office or Video Visit Today Protocol Used: Weakness (Generalized) and Fatigue (Adult) Protocol-Based Disposition: See in Office or Video Visit Today Video visit not offered Positive Triage Questions: * Moderate weakness (e.g., interferes with work, school, normal activities) and persists > 3 days * Patient wants to be seen * All higher-acuity triage questions were negative Care Advice Discussed: * Reasons To Call Back - Unable to stand or walk - Passes out - Breathing difficulty occurs - You become worse * Drink Fluids * Rest Protocol Used: Headache (Adult) Protocol-Based Disposition: See in Office or Video Visit within 3 Days Video visit not offered Positive Triage Question: * Mild - Moderate headache present > 3 days (72 hours) * All higher-acuity triage questions were negative Care Advice Discussed: * Reasons To Call Back - You become worse * Telephone Encounter - Jeaneth Sinha - 01/04/2025 2:33 PM EST Symptom: Headache Outcome: Schedule an urgent appointment (within 4 hours) or talk to a nurse or provider soon Reason: Started within the past 3 days The caller accepted this outcome. [phone] documented in this encounter Plan of Treatment Not on file documented as of this encounter Visit Diagnoses Not on filedocumented in this encounter Additional Health Concerns Assessment Noted Time PHQ-9 Depression Total Score: 1 04/19/20 23 10:42 AM EDT documented as of this encounter Care Teams Phone Specialist Relationship Specialty Start Date End Date Douglas Swift MD [address] [place] [id number] PCP - General Internal Medicine 02/26/15 documented as of this encounter
--- OUTSIDE RECORDS SUMMARY | 2025-01-08 08:23 | XMS_ITS | Encounter Summary ---
Author Organization [employer] Address [address] [facility] 7 [place] [address] Care Team Providers Care Quill Layer Name Role Phone Douglas Swift MD Primary Care Provider [phone] Reason for Visit * Reason Onset Date Comments Med Refill 12/13/2024 Encounter Details Date Type Department Care Team (Late st Contact Info) Description 12/13/2024 Refill [facility] MED[facility]INE [address] [place] [address] Douglas Swift MD [address] [place], [place] [phone] Social History Tobacco Use Types Packs/Day Years [...] encounter Miscellaneous Notes * Telephone Encounter - Kesha Damon - 12/13/2024 9:22 AM EST TC from pt requesting medication refill. Medications needing refill : omeprazole (PriLOSEC) [address] capsule To be sent to: [facility] documented in this encounter Plan of Treatment Not on file documented as of this encounter Visit Diagnoses Not on filedocumented in this encounter Additional Health Concerns Assessment Noted Time PHQ-9 Depression Total Score: 1 04/19/20 23 10:42 AM EDT documented as of this encounter Care Teams Quill Layer Relationship Specialty Start Date End Date Douglas Swift MD [address] [place] [id number] PCP - General Internal Medicine 02/26/15 documented as of this encounter
--- OUTSIDE RECORDS SUMMARY | 2025-01-08 08:23 | XMS_ITS | Encounter Summary ---
Author Organization [employer] Address [address] [facility] 7[address] [place] [address] Care Team Providers Care Animal Trainer Supervisor Name Role Phone Douglas Swift MD Primary Care Provider [phone] Reason for Visit * Reason Onset Date Comments Nurse Triage 01/01/2025 Encounter Details Date Type Department Care Team (Late st Contact Info) Description 01/01/2025 Telephone [facility] MEDICINE [address] [place], [place] [phone] Douglas Swift MD [address] [place], [place] [phone] Nurse Triage Social History Tobacco Use Types [...] encounter Miscellaneous Notes * Telephone Encounter - Lacie Ernst RN - 01/01/2025 2:45 PM EST Called pt. She states that she feels dizzy and the top of her head hurts x 1 week. Pt. Has high BP last week was 156/64-53 O2 sat 97%. Pt states she usually gets BP checked by [facility] nurse. Pt. Denies any chest pain, SOB, nausea, shoulder pain or jaw pain. States I just don't feel right and the BP medication that I take at night makes me very drowsy. . Pt. Advised can come to walk in for evaluationbut, she does not want to drive to [facility]. Pt. States I will call my [facility] to have someone come out tonight to check on me and I would like an appt. In [facility] when available this week. Advised pt. That I can put her in for 01/03/25 at 1015am in [facility] and pt. Agrees with plan. Pt declines me calling [facility] and states I will call them myself and have someone come out today . Advised pt. To stay well hydrated. Protocol Used: Blood Pressure - High (Adult) Protocol-Based Disposition: See in Office 01/03/25 at 1015am. Video visit not offered Positive Triage Questions: * Patient wants to be seen * Systolic BP >= 130 OR Diastolic >= 80, and is taking BP medications * All higher-acuity triage questions were negative * Telephone Encounter - Mk Kauffman - 01/01/2025 2:12 PM EST Symptom: High Blood Pressure - Caller Reports Outcome: Talk to a nurse or provider within 15 minutes Reason: Severe headache The caller accepted this outcome. documented in this encounter Plan of Treatment Not on file documented as of this encounter Visit Diagnoses Not on filedocumented in this encounter Additional Health Concerns Assessment Noted Time PHQ-9 Depression Total Score: 1 04/19/20 23 10:42 AM EDT documented as of this encounter Care Teams Animal Trainer Supervisor Relationship Specialty Start Date End Date Douglas Swift MD [address] [place] [id number] PCP - General Internal Medicine 02/26/15 documented as of this encounter
--- OUTSIDE RECORDS SUMMARY | 2025-01-08 08:23 | XMS_ITS | Encounter Summary ---
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, unspecified vessel or lesion type Douglas Swift MD [address] [place] [address] Phone: tel: fax: Referral ID Status Reason Start Date Expiration Date Visits Requested Visits Authorized [id number] Pending Review Specialty Services Required 01/05/2025 01/05/2026 1 1 Reason for Visit * Reason Comments ED follow-up Encounter Details Date Type Department Care Team ([facility] Contact Info) Description 01/05/2025 2:00 PM EST Office Visit [facility] [address] [place] [address] Douglas Swift MD [address] [place] [address] Benign hypertension (Primary Dx); 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, unspecified vessel or lesion type Social History Tobacco Use Types Packs/Day Years [...] AM EDT documented as of this encounter Last Filed Vital Signs Vital Sign Reading Time Taken Comments Blood Pressure 180/69 01/05/2025 2:14 PM EST Pulse 70 01/05/2025 2:14 PM EST Temperature 36.8 ??C (98.2 ??F) 01/05/2025 2 :14 PM EST Respiratory Rate 16 01/05/2025 2:14 PM EST Oxygen Saturation 97% 01/05/2025 2:1 4 PM EST Inhaled Oxygen Concentration - - Weight 63.1 kg (139 lb 2 oz) 01/05/2025 2:14 PM EST Height 149.3 cm (4' 10.76 ) 01/05/2025 2:14 PM EST pt with shoes on Body Mass Index 28.33 01/05/2025 2:14 PM EST documented in this encounter Progress Notes * Douglas Swift MD - 01/05/2025 2:00 PM EST Subjective Patient ID: Elda Vogt is a 84 y.o. female who presents for ED follow-up. HPI Here for follow-up after an evaluation at the emergency department on January 03, 2025. Patient presented herself to the emergency department with headache and dizziness. The symptoms started 3 days ago. She began to feel unwell and was feeling fatigue with lack of energy. Also reported that the dizziness was like a sensation she was going to fall. No history of traumatic injury. Currently on Plavix. No wall logical exam did not reveal any focal neurological deficit. Labs: No leukocytosis/anemia/renal dysfunction. Patient was hyponatremic at 129. Troponin indeterminate. Chest x-ray: No pneumonia Treated with IV fluids, Tylenol and Reglan. The administered treatment help. Patient headache improved. Admitted for posterior CVA workup. CTA is showing atherosclerotic disease. Patient was discharged. No change in medication made. 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 Take at bedtime. 30 tablet 11 aspirin 81 MG EC tablet Take 1 tablet (81 mg) by mouth Once per day. 30 tablet 11 clopidogrel (Plavix) 75 MG tablet Take 1 tablet (75 mg) by mouth Once per day. 30 tablet 11 ergocalciferol (Vitamin D2) 1.25 MG (74007 UT) capsule TAKE 1 CAPSULE BY MOUTH ONCE A WEEK 8 capsule 0 fluticasone (Flonase) 50 MCG/ACT nasal spray Administer 1-2 sprays into each nostril in the morning. Shake gently. Before first use, prime pump. After use, clean tip and replace cap. 16 g 5 losartan (Cozaar) 25 MG tablet Take 0.5 tablets (12.5 mg) by mouth Once per day. Take in the morning. 15 tablet 11 mirabegron ER (Myrbetriq) 25 MG 24 hr tablet Take 1 tablet (25 mg) by mouth at bedtime. Do not crush, chew, or split. 30 tablet 11 omeprazole (PriLOSEC) [address] capsule Take 1 capsule (20 mg) by mouth before breakfast. Do not crush or chew. 30 capsule 11 pantoprazole (Protonix) 40 MG EC tablet Take 1 tablet (40 mg) by mouth before breakfast. Do not crush, chew, or split. 30 tablet 11 polyethylene glycol, PEG, 3350 (ClearLax) 17 GM/SCOOP powder Take 17 g by mouth Once per day. 850 g3 rosuvastatin (Crestor) 40 MG tablet Take 1 tablet (40 mg) by mouth Once per day. 30 tablet 11 Ventolin HFA 108 (90 Base) MCG/ACT inhaler INHALE 2 PUFFS 4 TIMES DAILY NEEDED FOR SHORTNESS OF BREATH OR WHEEZING No current facility-administered medications on file prior to visit. Review of Systems Constitutional: Negative for appetite change, chills and diaphoresis. Eyes: Negative for photophobia, pain and redness. Respiratory: Negative for cough and choking. Cardiovascular: Negative for leg swelling. Genitourinary: Negative for enuresis, flank pain and frequency. Objective BP (!) 180/69 (BP Location: Right arm, Patient Position: Sitting, BP Cuff Size: Adult) Pulse 70 Temp 98.2 ??F (36.8 ??C) (Oral) Resp 16 Ht 4' 10.76 (1.493 m) Comment: pt with shoes on Wt 139 lb 2 oz (63.1 kg) SpO2 97% BMI 28.33 kg/m?? Physical Exam Constitutional: General: She is not in acute distress. Appearance: Normal appearance. She is not ill-appearing, toxic-appearing or diaphoretic. Cardiovascular: Rate and Rhythm: Normal rate. Pulmonary: Effort: Pulmonary effort is normal. Neurological: General: No focal deficit present. Mental Status: She is alert. Motor: Tremor present. Assessment/Plan Diagnoses and all orders for this visit: Benign hypertension Comments: Patient reports that her blood pressure is at goal at home in the 130s/60 No headache/blurry vision during the evaluation. No change made to the current management today. Patient was advised to continue checking her blood pressure at home 3 times a week and to call the office if her blood pressure is consistently above 150/90 mmHg and if her pulse goes over 100. Orders: - Referral to Cardiology; Future - Aldosterone/Plasma Renin Activity Ratio, LC/MS/MS; Future - METANEPHRINES, FRAC., PL. 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, unspecified vessel or lesion type Expected: 01/05/2025 (Approximate), Expires: 01/05/2026 documented as of this encounter Visit Diagnoses Diagnosis Benign hypertension- Primary Essential hypertension, benign 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
--- OUTSIDE RECORDS SUMMARY | 2025-01-08 08:23 | XMS_ITS | Encounter Summary ---
Author Organization [employer] Address [address] [facility] [address]t [place] [address] Care Team Providers Care User Support Specialist Name Role Phone Douglas Swift MD Primary Care Provider [phone] Encounter Details Date Type Department Care Team (Latest Contact Info) Description 01/05/2025 Travel Social History Tobacco Use Types Packs/Day Years [...] AM EDT documented as of this encounter Plan of Treatment Not on file documented as of this encounter Visit Diagnoses Not on filedocumented in this encounter Additional Health Concerns Assessment Noted Time PHQ-9 Depression Total Score: 1 04/19/20 23 10:42 AM EDT documented as of this encounter Care Teams User Support Specialist Relationship Specialty Start Date End Date Douglas Swift MD [address] [place] [phone] PCP - General Internal Medicine 02/26/15 documented as of this encounter
--- OUTSIDE RECORDS SUMMARY | 2025-01-08 08:23 | XMS_ITS | Clinical Summary ---
Author Organization [employer] Address [address] [place] [address] 7t [place] [address] Care Team Providers Care Cable Cutter And Swager Name Role Phone Douglas Swift MD Primary Care Provider Allergies Active Allergy Reactions Criticality Noted Date Comments Atenolol 03/25/2023 Other reaction(s): dizziness, lightheaded, gi upset Atorvastatin Unknown 08/03/2024 Carvedilol Unknown 11/24/2010 Celecoxib Unknown 11/24/2010 Metoprolol Unknown 11/24/2010 Moxifloxacin 03/25/2023 Other reaction(s): ?reaction Niacin Unknown 11/24/2010 Quinapril Unknown 11/24/2010 Rofecoxib Unknown 11/24/2010 Statins Unknown 11/24/2010 Telmisartan Unknown 11/24/2010 Verapamil Unknown 11/24/2010 Medications fluticasone (Flonase) 50 MCG/ACT nasal sprayIndications: Seasonal allergies Administer 1-2 sprays into each nostril in the morning. Shake gently. Before first use, prime pump. After use, clean tip and replace cap. 16 g 5 023 Active Ventolin HFA 108 (90 Base) MCG/ACT inhaler INHALE 2 PUFFS 4 TIMES DAILY NEEDED FOR SHORTNESS OF BREATH OR WHEEZING Active Allergy Relief 10 MG tabletIndications :Seasonal allergies TAKE ONE TABLET BY MOUTH EVERY MORNING 30 tablet 024 Active mirabegron ER (Myrbetriq) 25 MG 24 hr tabletIndications :Irritable bladder Take 1 tablet (25 mg) by mouth at bedtime. Do not crush, chew, or split. 30 tablet 11 07/092024 Active aspirin 81 MG EC tabletIndications :NSTEMI (non-ST elevated myocardial infarction) (CMS/HCC) Take 1 tablet (81 mg) by mouth Once per day. 30 tablet 024 2024 Active clopidogrel (Plavix) 75 MG tabletIndications :NSTEMI (non-ST elevated myocardial infarction) (CMS/HCC) Take 1 tablet (75 mg) by mouth Once per day. 30 tablet 024 2024 Active losartan (Cozaar) 25 MG tabletIndications :Benign hypertension,NSTE IL (non-ST elevated myocardial infarction) (CMS/HCC) Take 0.5 tablets (12.5 mg) by mouth Once per day. Take in the morning. 15 tablet 024 2024 Active pantoprazole (Protonix) 40 MG EC tabletIndications :Gastroesophageal reflux disease without esophagitis Take 1 tablet (40 mg) by mouth before breakfast. Do not crush, chew, or split. 30 tablet 024 2024 Active polyethylene glycol, PEG, 3350 (ClearLax) 17 GM/SCOOP powderIndications :Chronic constipation Take 17 g by mouth Once per day. 850 g 3 2024 Active amLODIPine (Norvasc) 2.5 MG tabletIndications :Benign hypertension Take 1 tablet (2.5 mg) by mouth Once per day. Take at bedtime. 30 tablet 11 2024 Active ergocalciferol (Vitamin D2) 1.25 MG (57085 UT) capsuleIndication s:Vitamin D deficiency TAKE 1 CAPSULE BY MOUTH ONCE A WEEK 8 capsule Active rosuvastatin (Crestor) 40 MG tabletIndications :Mixed hyperlipidemia Take 1 tablet (40 mg) by mouth Once per day. 30 tablet 024 2024 Active omeprazole (PriLOSEC) [address] capsule Take 1 capsule (20 mg) by mouth before breakfast. Do not crush or chew. 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 Will schedule appointment with Dr. Bone for removal. Left hip pain 03/26/2023 Assessment & Plan (03/26/2023 8:58 AM EDT): Patient with persistant pain in L sided SI joint and tenderness upon examination. Will send for x-ray and trial ultracet. 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 Disease due to severe acute respiratory syndrome coronavirus 2 (SARS-CoV-2) 03/14/2022 Overview (03/25/2023): Problem added by Discern Expert Adenocarcinoma of lung 07/26/2020 Pancreatic cyst 01/25/2019 Adrenal adenoma 01/25/2019 Benign hypertension 03/02/2012 Hyperlipidemia 03/02/2012 Allergic rhinitis 01/20/2012 Disorder of skeletal muscle 11/27/2011 Encounters Date Type Department Care Team Description 01/05/2025 2:00 PM EST Office Visit [facility] [address] [place] [address] Douglas Swift MD Benign hypertension (Primary Dx); Coronary artery disease involving circle heart without angina pectoris, unspecified vessel or lesion type 01/05/2025 Travel 01/04/2025 Telephone [facility] [address] [place], [place] [phone] Douglas Swift MD Nurse Triage 01/01/2025 Telephone [facility] [address] [place], [place] [phone] Douglas Swift MD Nurse Triage 12/28/2024 Telephone [facility] [address] [place] [address] Douglas Swift MD 12/13/2024 Refill [facility] [address] [place] [address] Douglas Swift MD 11/24/2024 3:45 PM EST Office Visit [facility] [address] [place] [address] Douglas Swift MD Mixed hyperlipidemia (Primary Dx); Primary hypertension; NSTEMI (non-ST elevated myocardial infarction) ([facility]) 11/24/2024 Travel 11/14/2024 Telephone [facility] [address] [place] [address] Douglas Swift MD Medication Question 11/14/2024 Refill [facility] [address] [place] [address] Douglas Swift MD Vitamin D deficiency 10/23/2024 9:30 AM EST Clinical Support [facility] [address] [place] [address] Corinne Contreras RN Primary hypertension 10/23/2024 Travel 10/13/2024 10:30 AM EST Office Visit [facility] [address] [place] [address] Wendi Pedro, SYDNEE 10/09/2024 Telephone [facility] [address] [place] [address] Douglas Swift MD Medication Question from Last 3 Months Immunizations Name Administration Dates Next Due Influenza High-dose Quadriva lent Preservative Free 08/16/2023,08/10/2022,09/05/2021,09/25 Influenza injectable quadriv alent IIV4 with preservative 08/27/2017,08/18/2016,08/20/2015 Influenza, High Dose Seasona l, Preservative Free 08/21/2024,08/25/2019,08/17/2018 Influenza, IIV3, injectable 08/31/2022,1 ,07/30/2021,09/25,07/30/2020,08/25/2019,08/17/2018 ,08/27/2017,08/18/2016,08/20/2015,07/30 Influenza, Split (incl. neil fied surface antigen) 08/09/2013,08/05/2012 Pneumococcal Conjugate PCV 13 08/27/2017, 015 Pneumococcal Polysaccharide PPSV23 08/25/2019 RSV Bivalent 06/07/2024 Tdap 10/11/2015 Zoster, Recombinant 05/26/2024,07/30/2023 Zoster, live 06/20/2013 Social History Tobacco Use Types Packs/Day Years Used Date Smoking Tobacco: Former Cigarettes 1 18 Passive Smoke Exposure: Never Smokeless Tobacco: Never Tobacco Cessation:Counseling Given: Not Answered Alcohol Use Standard Drinks/Week Comments Never 0 [...] the past 12 months, has t he [employer], gas, oil or water company threatened to [...] not to disclose 2021 10:15 AM EDT Last Filed Vital Signs Vital Sign Reading [...] Mass Index 28.33 01/05/2025 2:14 PM EST Plan of Treatment Health Maintenance Due Date Last Done Comments Dental X-Ray: Bitewings 1940 Alcohol/Substance Use Screening 1952 Dental X-Ray: Full Mouth 04/02/2024 04/01/2021 COVID-19 Vaccine ( season) 2024 01/29/2021, 12/28/2020 Dental Oral Exam 09/24/2024 03/24/2024, 02/2022, 04/01/2021, Additional history exists Dental Prophylaxis 09/24/2024 03/24/2024, 1 , 05/19/2021, Additional history exists SDOH Screening 05/09/2025 05/09/2024 Depression Screening 05/22/2025 05/22/2024, 04/19/20 23 DTaP/Tdap/Td Vaccines (2 - Td or Tdap) 10/11/2025 10/11/2015 Tobacco Screening 01/05/2026 01/05/2025 Mammogram 08/01/2026 08/01/2024, 05/30, 04/28/2023, Additional history exists Lipid Panel 01/28/2028 01/27/2023, 04/06/2022 Pneumococcal Vaccine: 50+ Years Completed 08/25/2019, 08/27/2017, 10/11/2015 Zoster Vaccines Completed 05/26/2024, 11/2022, 06/20/2013 RSV Patients and Patients Aged 60 years or older Completed 06/07/2024 Influenza Vaccine Completed 08/21/2024, , 08/31/2022, Additional history exists HIB Vaccines Aged Out No longer eligi ble based on patient's age to complete this topic HPV Vaccines Aged Out No longer eligi ble based on patient's age to complete this topic Hepatitis A Vaccines Aged Out No long er eligible based on patient's age to complete this topic Hepatitis B Vaccines Aged Out No long er eligible based on patient's age to complete this topic IPV Vaccines Aged Out No longer eligi ble based on patient's age to complete this topic Meningococcal Vaccine Aged Out No alfreda sonal eligible based on patient's age to complete this topic RSV under 20 months Aged Out No longe r eligible based on patient's age to complete this topic Rotavirus Vaccines Aged Out No longer eligible based on patient's age to complete this topic Procedures Procedure Name Priority Date/Time Associated Diagnosis Comments INTRAORAL - PERIAPICAL FIRST RADIOGRAPHIC IMAGE Routine 10/13/2024 10:30 AM EST LIMITED ORAL EVALUATION - PROBLEM FOCUSED Routine 10/13/2024 10:30 AM EST BI MAMMOGRAM SCREENING TOMOSYNTHESIS BILATERAL Routine 08/01/2024 9:30 AM EDT Full PROPHYLAXIS - ADULT Routine 03/24/2024 9:00 AM EDT PERIODIC ORAL EVALUATION - ESTABLISHED PATIENT Routine 03/24/2024 9:00 AM EDT LIPID PANEL, STANDARD Routine 01/27/2023 11:16 AM EST PANORAMIC RADIOGRAPHIC IMAGE Routine 04/01/2021 12:00 AM EDT from Last 3 Months or Most Recently Relevant to Health Maintenance Results * BI Mammogram Screening Tomosynthesis Bilateral (08/01/2024 9:30 AM EDT) Anatomical Region Laterality Modality Breast Bilateral Mammography 08/01/2024 9:30 AM EDT Narrative 08/19/2024 10:41 PM EDT ? [facility] ? [address] ?[place] [address] ? Mammography Report ? Signed ? Patient: Sin,Elda M ?MR#: [id number] ?? [id number] ? : 1940 ?Acct:[id number] ? Age/Sex: 83 / F ?ADM Date: 09/03/24 ? Loc: HO.MAMMO ? Attending Dr: Douglas Swift MD ? Ordering Physician: Douglas Swift MD ?Results: 1 ?? Negative ? Date of Service: 08/01/24 ?Follow Up: 1 Year From Orig ?? inal Mammogram ? Procedure(s): MM tomosynthesis screening BI ?? Accession Number(s): [id number] ? cc: Douglas Swift MD ? EXAMINATION: ?? MM SCREENING DIGITAL BREAST TOMOSYNTHESIS, BILATERAL ? CLINICAL INFORMATION: ? Screening. Asymptomatic. ? COMPARISON: ?? Mammography: Comparison is made with available priors ? TECHNIQUE: ?? Digital breast mammography with tomosynthesis is performed in both the ?? craniocaudal and mediolateral oblique views along with computer-aided ?? detection (CAD). ? FINDINGS: ?? There are scattered areas of fibroglandular density (ACR BI-RADS breast ?? composition Category b). ? There are no significant masses, abnormal calcifications, or other ?? abnormalities. ? MM/MM tomosynthesis screening BI ?? IMPRESSION: ?? No mammographic evidence of malignancy. ? ASSESSMENT: ? BI-RADS BI-RADS 1 - Negative ? RECOMMENDATION: ?? Routine annual mammography screening. ? 1 year F/U ? This examination should not preclude the clinical evaluation of a ?? suspicious palpable abnormality. ? This patient's information was entered into a reminder system with a ?? target due date for their next mammogram. ? Electronically signed by: ??Nelia Guardado DO ??08/19/2024 10:39 PM EDT ?? RP ? Dictated By: ?Nelia Guardado DO ? Signed By: ?<Electronically signed by Nelia Guardado, DO in OV> ? 08/19/242238 ? DD/ 0930 ? TD/TT: 08/01/24 0945 ? Fisher Hand Line: ? Procedure Note Donotuseinterpreter, Image - 08/19/2024 [facility] [address] [place] [address] Mammography Report Signed Patient: Elda Vogt MMR#: [id number] : 2Acct:[id number] Age/Sex: 83 / FADM Date: 08/01/24 Loc: HO.MAMMO Attending Dr: Douglas Swift MD Ordering Physician: Douglas Swift MDResults: 1 Negative Date of Service: 08/01/24Follow Up: 1 Year From Orig ina Mammogram Procedure(s): MM tomosynthesis screening BI Accession Number(s): [id number] cc: Douglas Swift MD EXAMINATION: MM SCREENING DIGITAL BREAST TOMOSYNTHESIS, BILATERAL CLINICAL INFORMATION: Screening. Asymptomatic. COMPARISON: Mammography: Comparison is made with available priors TECHNIQUE: Digital breast mammography with tomosynthesis is performed in both the craniocaudal and mediolateral oblique views along with computer-aided detection (CAD). FINDINGS: There are scattered areas of fibroglandular density (ACR BI-RADS breast composition Category b). There are no significant masses, abnormal calcifications, or other abnormalities. MM/MM tomosynthesis screening BI IMPRESSION: No mammographic evidence of malignancy. ASSESSMENT: BI-RADS BI-RADS 1 - Negative RECOMMENDATION: Routine annual mammography screening. 1 year F/U This examination should not preclude the clinical evaluation of a suspicious palpable abnormality. This patient's information was entered into a reminder system with a target due date for their next mammogram. Electronically signed by: Nelia Guardado DO 08/19/2024 10:39 PM EDT Dictated By: Nelia Guardado DO Signed By: <Electronically signed by Nelia Guardado DO in OV> 08/19/242238 DD/ 9 TD/TT: 08/01/24944 Fisher Hand Line: us Douglas Swift MD IMG BI PROCEDURES Edited Re sult - Final * (ABNORMAL) Lipid Panel, Standard (01/27/2023 11:16 AM EST) Cholesterol, Total 271(H) <200 mg/dL [facility] HDL Cholesterol 64 > OR = 50 mg/dL [facility] Triglycerides 166(H) <150 mg/dL [facility] LDL Cholesterol 176(H) mg/dL (calc) [facility] Comment: Reference range: <100 Desirable range <100 mg/dL for primary prevention; ?? <70 mg/dL for patients with CHD or diabetic patients with > or = 2 CHD risk factors. LDL-C is now calculated using the Figueroa-Addison calculation, which is a validated novel method providing better accuracy than the Friedewald equation in the estimation of LDL-C. Figueroa SS et al. TAYLOR. 2013;310(19): 5755-7024 (http://education.Proficiency.Mercantila/faq/QPD524) Chol/HDLC Ratio 4.2 <5.0 (calc) [facility] Non-HDL Cholesterol 207(H) <130 mg/dL (calc) [facility] Comment: For patients with diabetes plus 1 major ASCVD risk factor, treating to a non-HDL-C goal of <100 mg/dL (LDL-C of <70 mg/dL) is considered a therapeutic option. 01/27/2023 11:1 6 AM EST 01/27/2023 11:17 AM EST Narrative [facility] - 01/28/2023 8:55 AM EST FASTING:NO FASTING: NO us Douglas Swift MD LAB BLOOD ORDERABLES Final Result [facility] [address], [address], [place] [address] [facility] [address], ([address]) [place] [address] from Last 3 Months or Most Recently Relevant to Health Maintenance Insurance D[facility]AL - [facility] Advance Directives Documents on File Type Date Recorded Patient Employment Security Officer Expl anation MOLST form 09/19/2024 3:32 PM [facility]ST Care Teams Cable Cutter And Swager Relationship Specialty Start Date End Date Douglas Swift MD [address] [place] [address] [place] Mckeon [address] PCP - General Internal Medicine 02/26/15
--- OUTSIDE RECORDS SUMMARY | 2025-01-08 08:23 | XMS_ITS | Encounter Summary ---
Author Organization [employer] Address [address] [facility] 7t [place] [address] Care Team Providers Care Riveter Name Role Phone Douglas Swift MD Primary Care Provider [phone]- [phone] Encounter Details Date Type Department Care Team (Late st Contact Info) Description 12/28/2024 Telephone [facility] [address] [place] [address] Douglas Swift MD [address] [place], [place] [phone] Social History Tobacco Use Types Packs/Day Years [...] documented as of this encounter Care Teams Riveter Relationship Specialty Start Date End Date Douglas Swift MD [address] [place] [phone] PCP - General Internal Medicine 02/26/15 documented as of this encounter
--- OUTSIDE RECORDS SUMMARY | 2025-01-08 08:24 | XMS_ITS | Encounter Summary ---
Author Organization [employer] Address [address] [place] [address] [address] [place] [address] Care Team Providers Care Special Education Kindergarten Teacher Name Role Phone Douglas Swift MD Primary Care Provider [phone]- [phone] Encounter Details Date Type Department Care Team ([facility] st Contact Info) Description 08/04/2024 Orders Only [facility] [address] [place], [place] [phone] Douglas Swift MD [address] [place], [place] [phone] Hyponatremia (Primary Dx) Social History Tobacco Use Types Packs/Day Years [...] as of this encounter Plan of Treatment Scheduled Orders Name Type Priority Associated Diagnoses Orde r Schedule Urine electrolytes Lab Routine Hyponatremia Expected: 08/04/2024 (Approximate), Expires: 08/04/2025 Osmolality, Urine Lab Routine Hyponatremia Expected: 08/04/2024 (Approximate), Expires: 08/04/2025 documented as of this encounter Procedures Procedure Name Priority Date/Time Associated Diagnosis Comments SODIUM W/O CREATININE, RANDOM URINE Routine 08/07/2024 8:10 AM EDT Hyponatremia OSMOLALITY (SERUM) Routine 08/07/2024 8: 08 AM EDT Hyponatremia BASIC METABOLIC PANEL Routine 08/07/2024 8:08 AM EDT Hyponatremia documented in this encounter Results * Sodium Without creatinine, Random Urine (08/07/2024 8:10 AM EDT) Sodium Urine Random 43.0 mmol/L [facility] Urine Urine specimen obtained by clean catch procedure / Unknown 08/07/2024 8:10 AM EDT 08/07/2024 2:24 PM EDT us Douglas Swift MD LAB BLOOD ORDERABLES Final Result [facility] [address] [place] [phone] * Osmolality, Serum (08/07/2024 8:08 AM EDT) Osmolality (Serum) 291 281 - 305 mosm/kg [facility] Blood Venous blood specimen / Unknown 08/07/2024 8:08 AM EDT 08/07/2024 2:26 PM EDT us Douglas Swift MD LAB BLOOD ORDERABLES Final Result Performing Organization Address [facility] Co de Phone Number [facility] [address] [place] [phone] [phone] * Basic Metabolic Panel (08/07/2024 8:08 AM EDT) Pathologist [facility] Sodium 139 135 - 145 mmol/L [facility] Potassium 4.9 3.3 - 5.1 mmol/L [facility] Chloride 103 96 - 108 mmol/L [facility] Carbon Dioxide 27 22 - 29 mmol/L [facility] Anion Gap 14 12 - 20 [facility] Urea Nitrogen (BUN) 10 9 - 16 mg/dL [facility] Creatinine, Serum 0.73 0.5 - 1.4 mg/dL [facility] Estimated Glomerular Filt Rate >60 [facility] Comment:NOTE: For -Am erican individuals, multiply the result by 1.210.Chronic Kidney Disease: Estimated GFR < 60 mL/min/1.11a4Vmyjqc Kidney Disease: Estimated GFR < 15 mL/min/1.73m2 Glucose 100 60 - 115 mg/dL [facility] Calcium 10.0 8.4 - 10.2 mg/dL [facility] Blood Venous blood specimen / Unknown 08/07/2024 8:08 AM EDT 08/07/2024 2:26 PM EDT us Douglas Swift MD LAB BLOOD ORDERABLES Final Result Performing Organization Address [facility]/ZIP Co de Phone Number [facility] [address] [place] [address] [phone] documented in this encounter Visit Diagnoses Diagnosis Hyponatremia- Primary Hyposmolality and/or hyponatremia documented in this encounter Additional Health Concerns Assessment Noted Time PHQ-9 Depression Total Score: 1 04/19/20 23 10:42 AM EDT documented as of this encounter Care Teams Special Education Kindergarten Teacher Relationship Specialty Start Date End Date Douglas Swift MD [address] [place] [address] PCP - General Internal Medicine 02/26/15 documented as of this encounter
--- OUTSIDE RECORDS SUMMARY | 2025-01-08 08:24 | XMS_ITS | Encounter Summary ---
Author Organization [employer] Address [address] [facility] 7 [place] [address] Care Team Providers Care Corset Maker Name Role Phone Douglas Swift MD Primary Care Provider [phone]- [phone] Reason for Visit * Reason Onset Date Comments Verbal Orders 08/11/2024 Encounter Details Date Type Department Care Team ([facility] st Contact Info) Description 08/11/2024 Telephone [facility] MEDICINE [address] [place], [place] [phone] Douglas Swift MD [address] [place] [address] Verbal Orders Social History Tobacco Use Types Packs/Day Years [...] encounter Miscellaneous Notes * Telephone Encounter - Yomi Cartwright - 08/11/2024 2:46 PM EDT Tc from Addie with [facility] requesting verbal orders. Please contact Addie at [phone] opt 2. documented in this encounter Plan of Treatment Not on file documented as of this encounter Visit Diagnoses Not on filedocumented in this encounter Additional Health Concerns Assessment Noted Time PHQ-9 Depression Total Score: 1 04/19/20 23 10:42 AM EDT documented as of this encounter Care Teams Corset Maker Relationship Specialty Start Date End Date Douglas Swift MD [address] [place] [phone] PCP - General Internal Medicine 02/26/15 documented as of this encounter
--- OUTSIDE RECORDS SUMMARY | 2025-01-08 08:24 | XMS_ITS | Encounter Summary ---
Author Organization [employer] Address [address] [place] [address] 7t [place] [address] Care Team Providers Care Acrylic Fabricator Name Role Phone Douglas Swift MD Primary Care Provider [phone] Encounter Details Date Type Department Care Team ([facility] st Contact Info) Description 05/14/2023 Abstract [facility] CHC MED & PEDS [address] [place] [address] Douglas Swift MD [address] [place] [address] Social History Tobacco Use Types Packs/Day Years Used Date Smoking Tobacco: Former Cigarettes 1 18 Passive Smoke Exposure: Never Smokeless Tobacco: Never Alcohol Use Standard Drinks/Week Comments Never 0 (1 standard drink = 0.6 oz pur e alcohol) Depression Answer Date Recorded Patient Health Questionnaire-9 Score 1 04/19/2023 Depression Answer Date Recorded Patient Health Questionnaire-2 Score 0 04/19/2023 Comments Unknown Sex and Gender Information Value Date Recorded Sex Assigned at Female 09/28/2022 10:15 AM EDT Legal Sex Female 10:15 AM EDT Gender Identity Female 09/28/2022 10:15 AM EDT Sexual Orientation Choose not to disclose 2021 10:15 AM EDT COVID-19 Exposure Response Date Recorded In the last 10 days, have yo u been in contact with someone who was confirmed or suspected to have Coronavirus/COVID-19? No / Unsure 05/03/2023 9:03 AM EDT documented as of this encounter Plan of Treatment Not on file documented as of this encounter Visit Diagnoses Not on filedocumented in this encounter Additional Health Concerns Assessment Noted Time PHQ-9 Depression Total Score: 1 04/19/20 23 10:42 AM EDT documented as of this encounter Care Teams Acrylic Fabricator Relationship Specialty Start Date End Date Douglas Swift MD [address] [place] [address] PCP - General Internal Medicine 02/26/15 documented as of this encounter
--- OUTSIDE RECORDS SUMMARY | 2025-01-08 08:24 | XMS_ITS | Patient Health Record ---
Author Organization [facility] Address [address] [place] [address] Care Team Providers Care Plumber Pipe Fitting Name Role Phone Douglas Swift M.D. Primary Care Provider Un available Erlin Kuo Unavailable [phone] ALLERGIES Allergen (clinical drug ingredient) Drug/Non Drug Allergy documented on EMR Reaction Allergy Type Onset Date Status niacin Niacin Unknown Drug Allergy Active Metoprolol Succinate Unknown Drug Allergy Active celecoxib Celecoxib Unknown Drug Allergy Active carvedilol Carvedilol Unknown Drug Allergy Activ e atorvastatin Atorvastatin Calcium Unknown Drug Allergy Active verapamil Verapamil HCl Unknown Drug Allergy Act yaritza telmisartan Telmisartan Unknown Drug Allergy Act yaritza quinapril Quinapril HCl Unknown Drug Allergy Act yaritza REASON FOR REFERRAL No Information MEDICATIONS Medication SIG (Take, Route, Frequency, Duration) Notes Start Date End Date Status Fluticasone Propionate 50 MCG/ACT Nasal for 60 Active Vitamin D (Ergocalciferol) 1.25 MG (67994 UT) TAKE 1 CAPSULE BY MOUTH ONCE WEEKLY Oral for 56 Active Albuterol Not-Taking Omeprazole 20 MG TAKE ONE CAPSULE BY MOUTH EVERY DAY 30 MINUTES BEFORE MORNING MEAL for 30 Active Loratadine 10 MG 1 tablet Orally Once a day/prn Active Valium 5 MG 1 tablet as needed Orally Once a day Not-Taking MiraLax 17 GM/SCOOP as directed Orally twice a day Active ClearLax 17 GM/SCOOP Oral for 10 Active Breo Ellipta 100-25 MCG/ACT INHALE 1 PUFF DAILY Inhalation for 30 Active amLODIPine Besylate 10 MG TAKE ONE TABLET BY MOUTH DAILY Oral for 90 Active tylenol Active Digestive Advantage OTC Probiotic Active IMMUNIZATIONS Vaccine Route Administration Date Status Comme nts Influenza Unknown 07/30/2020 Administered Influenza Unknown 07/30/2021 Administered Influenza Unknown 08/31/2022 Administered SOCIAL HISTORY Tobacco Use: Social History Observation Description Date Details (start date - stop date) Never Smoker NA - NA Sex Assigned At : Social History Observation Description Sex Assigned At Unknown Tobacco Use/Smoking Question Answer Notes Patient is a nonsmoker Alcohol Screen Question Answer Notes Did you have a drink containing alcohol in the p ast year? 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) Active confirmed 90456292 Problem Erosive esophagitis (K22.10) Active confirmed 97909442 PLAN OF TREATMENT Pending Test Test Name Order Date BUN 04/30/2022 CREATININE 04/30/2022 CA 19-9 04/24/2021 CA 19-9 04/30/2022 MRI ABD W&WO CONTRAST 04/30/2022 Insurance Providers Payer Name Payer Address Payer Phone Subscriber Number Group Number Insured Name Patient Relationship to Insured Coverage Start Date Coverage End Date [facility] [address] Attn Claims [place] [id number] HEIDY OLIVEROS Self - patient is the insured MEDICAL (GENERAL) HISTORY Medical History History ICD Code Overactive bladder Hypertension Lung cancer as below Pancreas cysts seen in the n sandra, body, and tail of the pancreas on MRI in 03/2021. The pancreatic duct appeared normal and the cysts did not have any solid component on the MRI. A pancreatic cyst was seen on an 06/2020 CT scan and a 07/2020 PET-CT was negative in that regard during a workup for her lung cancer. 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 Spicer--the patient refused adjuvant chemo She underwent an endoscopic ultrasound of her known pancreatic cyst in September of [address] Moser. He felt this was a benign IPMN lesion and did not require drainage nor biopsy. Erosive esophagitis, small e sophageal ulcer, and hiatal hernia was found during her upper endoscopy portion of the endoscopic ultrasound in September 2022. She sees Dr. Cartwright at [facility] for pulmon aga issues Surgical History Surgery Date(Month/Year) VATS Lung cancer surgery RUL-removed by Dr. Oh in 09/2020 Partial hysterectomy Tubal ligation Rectal surgeries by Dr. Morris at [facility]
--- OUTSIDE RECORDS SUMMARY | 2025-01-08 08:24 | XMS_ITS | Encounter Summary ---
Author Organization [employer] Address [address] [facility] 7t [place] [address] Care Team Providers Care Territory Development Manager Name Role Phone Douglas Swift MD Primary Care Provider [phone] Encounter Details Date Type Department Care Team (Late st Contact Info) Description 09/20/2024 Orders Only [facility] CHC MED & PEDS [address] [place] [address] Provider, MD Jose F Social History Tobacco Use Types Packs/Day Years [...] on file documented as of this encounter Procedures Procedure Name Priority Date/Time Associated Diagnosis Comments CT CHEST WO CONTRAST Routine 09/20/2024 12:26 PM EDT documented in this encounter Results * CT Chest w/o Contrast (09/20/2024 12:26 PM EDT) Anatomical Region Laterality Modality Body, Chest Computed Tomogra phy us Historical Provider MD KENNEDY CT PROCEDURES Final R esult documented in this encounter Visit Diagnoses Not on filedocumented in this encounter Additional Health Concerns Assessment Noted Time PHQ-9 Depression Total Score: 1 04/19/20 10:42 AM EDT documented as of this encounter Care Teams Territory Development Manager Relationship Specialty Start Date End Date Douglas Swift MD [address] [place] [address] PCP - General Internal Medicine 02/26/15 documented as of this encounter
--- OUTSIDE RECORDS SUMMARY | 2025-01-08 08:25 | XMS_ITS | Encounter Summary ---
Author Organization [employer] Address [address] [place] [address] 7[address] [place] [address] Care Team Providers Care Webbing Tacker Name Role Phone Doulgas Swift MD Primary Care Provider [phone] Encounter Details Date Type Department Care Team (Latest Contact Info) Description 04/01/[address] [facility] CONVERSIONS Dental, Provider, DDS Social History Tobacco Use Types Packs/Day Years Used Date Smoking Tobacco: Never Assessed Comments Unknown Sex and Gender Information Value [...] Diagnoses Not on filedocumented in this encounter Care Teams Webbing Tacker Relationship Specialty Start Date End Date Douglas Swift MD [address] [place] [address] PCP - General Internal Medicine 02/26/15 documented as of this encounter
--- OUTSIDE RECORDS SUMMARY | 2025-01-08 08:25 | XMS_ITS | Encounter Summary ---
Author Organization [employer] Address [address] [place] [address] 7 [place] [address] Care Team Providers Care Retort Firer Name Role Phone Douglas Swift MD Primary Care Provider [phone] Reason for Visit * Reason Onset Date Comments Triage 03/25/2023 Encounter Details Date Type Department Care Team ([facility] st Contact Info) Description 03/25/2023 Telephone [facility] CHC MED & PEDS [address] [place] [address] Douglas Swift MD [address] [place] [address] Triage Social History Tobacco Use Types Packs/Day Years Used Date Smoking Tobacco: Former Cigarettes 1 18 Smokeless Tobacco: Never Comments Unknown Sex and Gender Information Value [...] suspected to have Coronavirus/COVID-19? No / Unsure 03/26/2023 8:24 AM EDT documented as of this encounter Miscellaneous Notes * Telephone Encounter - Liss Rosas RN - 03/25/2023 11:28 AM EDT Triage call Pt reports severe sciatic pain affecting left hip /back area. [facility] and received an injection which didn't help. Pt reports advil and tylenol doesn't help either. Pt reports pain is worse when getting up and down from the toilet and when getting out of the car. Pt is able to walk but, with pain as well. Pt is using heat with out effect. Pt is requesting to see provider. apt made with Dr. Dangelo @ [facility] 03/26. Pt agrees with disposition and home care reviewed. Insurance is verified as active at time of booking Protocol Used: Back Pain (Adult) Protocol-Based Disposition: See in Office or Video Visit Today Override (Final) Disposition: See in Office or Video Visit Today or Tomorrow Override Reason: No appointments available Video visit not offered Positive Triage Question: * Severe back pain (e.g., excruciating, unable to do any normal activities) and not improved after pain medicine and Care Advice * All higher-acuity triage questions were negative Care Advice Discussed: * Reassurance and Education - Back Pain * Cold or Heat * Sleep * Activity * Pain Medicines * Pain Medicines - Extra Notes and Warnings * Reasons To Call Back - Fever occurs - Numbness or weakness occurs, or bowel/bladder problems - Pain begins to shoot into the leg - Pain persists over 2 weeks - Pain becomes worse - You become worse * Telephone Encounter - Nancy Simmons - 03/25/2023 10:44 AM EDT Symptoms: sciatic pain (left side) Outcome: Schedule a same-day appointment or talk to a nurse or provider today Reason:No high acuity concerns reported by caller The caller accepted this outcome documented in this encounter Plan of Treatment Not on file documented as of this encounter Visit Diagnoses Not on filedocumented in this encounter Care Teams Retort Firer Relationship Specialty Start Date End Date Douglas Swift MD [address] [place] [address] PCP - General Internal Medicine 02/26/15 documented as of this encounter
--- OUTSIDE RECORDS SUMMARY | 2025-01-08 08:25 | XMS_ITS | Encounter Summary ---
Author Organization [employer] Address [address] [place] [address] 7 [place] [address] Care Team Providers Care Restrictive Preparation Operator Name Role Phone Douglas Swift MD Primary Care Provider Encounter Details Date Type Department Care Team (Latest Contact Info) Description 07/25/2019 Abstract [facility] CONVERSIONS Dental, Provider, DDS Social History [...] on filedocumented in this encounter Care Teams Restrictive Preparation Operator Relationship Specialty Start Date End Date Douglas Swift MD [address] [facility] [place] [address] PCP - General Internal Medicine 02/26/15 documented as of this encounter
--- OUTSIDE RECORDS SUMMARY | 2025-01-08 08:25 | XMS_ITS | Encounter Summary ---
Author Organization [employer] Address [address] [facility] 7 [place] [address] Care Team Providers Care Director Investor Relations Name Role Phone Douglas Swift MD Primary Care Provider Reason for Visit * Reason Onset Date Comments Hospital Follow-up 01/19/2023 Encounter Details Date Type Department Care Team (Late st Contact Info) Description 01/19/2023 Telephone [facility] [address] [place], [place] [phone] Douglas Swift MD [address] [place], [place] [phone] Hospital Follow-up Social History Tobacco Use Types Packs/Day Years [...] encounter Miscellaneous Notes * Telephone Encounter - Lori Narayan RN - 02/01/2023 10:32 AM EST Call to pharmacy. Confirmed script was received. Call to pt to inform. No answer. Left v/m requesting return call. * Telephone Encounter - Lori Narayan RN - 02/01/2023 9:20 AM EST Rx [facility] printed on 01/25/23. Not sent. Will forward to PCP to send electronically to pharmacy on file. * Telephone Encounter - Marck Gaming - 02/01/2023 9:06 AM EST Pt walked in stating she still has not received her medication for bladder. I called the pharmacy to verify with her consent and they said they had not received med request ([email or web address]). * Telephone Encounter - Liss Rosas RN - 01/28/2023 4:04 PM EST Pt calling on critical results line. Pt reports getting a call from [facility]: The information below was reported to Pt. -- Please call. Labs reviewed: very high cholesterol level. Ms Elda Vogt did not tolerate statins in the past. Needs to be on a strict low chol diet. Very low Vit D . I will prescribe 8 weeks of Vit D 63532 units to take once a week. Pt responded to message, has already obtained Vit D prescription and will start. Pt will try to reduce cholesterol in diet. No further questions offered. * Telephone Encounter - Tad Milan - 01/19/2023 2:29 PM EST Patient calling for HDF follow up appointment. Patient hospitalized at [facility] and discharged on 01/14/2023. Patient advised will forward to team nurse for follow up and appointment scheduling. documented in this encounter Plan of Treatment Not on file documented as of this encounter Visit Diagnoses Diagnosis Overactive bladder- Primary Hypertonicity of bladder documented in this encounter Care Teams Director Investor Relations Relationship Specialty Start Date End Date Douglas Swift MD [address] [place] [address] PCP - General Internal Medicine 02/26/15 documented as of this encounter
--- OUTSIDE RECORDS SUMMARY | 2025-01-08 08:25 | XMS_ITS ---
Author Organization [facility] Address [address] [place] [address] Care Team Providers Care Director Information Name Role Phone Douglas Swift M.D. Primary Care Provider Un available Erlin Kuo Unavailable [phone] MEDICATIONS Medication SIG (Take, Route, Fr equency, Duration) Notes Start Date End Date Status Sucralfate 1 GM 1 tablet on an empty stomach--take 30 to 60 minutes before a meal, or 2 hours after a meal Orally Twice a day on the day you take the antibiotic for 30 day(s) 08/24/2023 Active Encounters Encounter Location Date Provider Diagnosis [facility] [address] [address] 08/23/2023 Erlin Kuo PLAN OF TREATMENT Medication Medication Name Sig Start Date Stop Date Notes Sucralfate 1 GM 1 tablet on an empty stomach--take 30 to 60 minutes before a meal, or 2 hours after a meal Orally Twice a day on the day you take the antibiotic for 30 day(s) 08/24/2023
--- OUTSIDE RECORDS SUMMARY | 2025-01-08 08:25 | XMS_ITS | Encounter Summary ---
Author Organization [email or web address] Address [address] [place] [address] 7t [place] [address] Care Team Providers Care Cartridge Feeder Name Role Phone Douglas Swift MD Primary Care Provider [phone] Encounter Details Date Type Department Care Team ([facility] st Contact Info) Description 06/06/2024 Orders Only [facility] CHC MED & PEDS [address] [place], [place] [phone] Douglas Swift MD [address] [place], [place] [phone] Irritable bladder (Primary Dx) Social History Tobacco Use Types [...] Procedure Name Priority Date/Time Associated Diagnosis Comments URINALYSIS, COMPLETE Routine 06/07/2024 8:41 AM EDT Irritable bladder documented in this encounter Results * (ABNORMAL) Urinalysis Complete (06/07/2024 8:41 AM EDT) Color Urine Yellow [facility] Appearance Urine Clear [facility] PH 6.0 5.0 - 9.0 [facility] Glucose Urine UA Negative Negative mg/dL [facility] Urine Blood Negative Negative [facility] Specific [place] - Urine 1.015 1.005 - 1.025 [facility] Urine Protein Negative Neg-Trace mg/dL [facility] Urine Ketones Negative Negative mg/dL [facility] Nitrite Urine Negative Negative [facility] Leukocyte Esterase Urine Trace(A) Negative [facility] RBC Urine 0-2 0 - 2 /HPF [facility] Urine WBC 0-5 0 - 5 /HPF [facility] Urine Squamous Epithelial Cell 0-2 0 - 2 /HPF [facility] Urine Bacteria None Seen None Seen [facility] Hyaline Casts, Urine 0-2 0 - 2 /LPF [facility] Urine (Urine, Random) 06/07/2024 8:41 AM EDT 06/07/2024 1:55 PM EDT us Douglas Swift MD LAB URINE ORDERABLES Final Result [facility] [address] [place] [address] [phone] documented in this encounter Visit Diagnoses Diagnosis Irritable bladder- Primary Other specified disorder of bladder documented in this encounter Additional Health Concerns Assessment Noted Time PHQ-9 Depression Total Score: 1 04/19/20 23 10:42 AM EDT documented as of this encounter Care Teams Cartridge Feeder Relationship Specialty Start Date End Date Douglas Swift MD [address] [place] [address] PCP - General Internal Medicine 02/26/15 documented as of this encounter
--- OUTSIDE RECORDS SUMMARY | 2025-01-08 08:25 | XMS_ITS | Encounter Summary ---
Author Organization [employer] Address [address] [place] [address] 7t [place] [address] Care Team Providers Care Head Of Business Development Name Role Phone Douglas Swift MD Primary Care Provider [phone] Encounter Details Date Type Department Care Team ([facility] st Contact Info) Description 07/11/2024 Orders Only [facility] CHC MED & PEDS [address] [place], [place] [phone] Douglas Swift MD [address] [place], [place] [phone] Benign hypertension (Primary Dx) Social History Tobacco Use Types [...] the past 12 months, has t he [employer], gas, oil or water [employer] threatened to shut off services in your [...] Procedure Name Priority Date/Time Associated Diagnosis Comments BI MAMMOGRAM SCREENING TOMOSYNTHESIS BILATERAL Routine 08/01/2024 9:30 AM EDT documented in this encounter Results * BI Mammogram Screening Tomosynthesis Bilateral (08/01/2024 9:30 AM EDT) Anatomical Region Laterality Modality Breast Bilateral Mammography 08/01/2024 9:30 AM EDT Narrative 08/19/2024 10:41 PM EDT ? [facility] [place] ? [address] ?[place] [id number] ? Mammography Report ? Signed ? Patient: Elda Vogt ?MR#: [id number] ?? [id number] ? : 1940 ?Acct:[id number] ? Age/Sex: 83 / F ?ADM Date: 08/01/24 ? Loc: HO.MAMMO ? Attending Dr: Douglas Swift MD ? Ordering Physician: Jamison,Thevenin Byron MD ?Results: 1 ?? Negative ? Date of Service: 08/01/24 ?Follow Up: 1 Year From Orig ?? inal Mammogram ? Procedure(s): MM tomosynthesis screening BI ?? Accession Number(s): [id number] ? cc: Douglas Swift MD ? EXAMINATION: [...] DO in OV> ? 08/19/242238 ? DD/ 9 ? TD/TT: 08/01/24 0945 ? Stamp Analyst: ? Procedure Note Bernard, Alexi - 08/19/2024 [facility] [address] [place] [address] Dr. [place], [place] [address] Mammography Report Signed Patient: Elda Vogt MMR#: [id number] : 2Acct:[id number] Age/Sex: 83 / FADM Date: 08/01/24 Loc: HO.MAMMO Attending Dr: Douglas Swift MD Ordering Physician: Douglas Swift MDResults: 1 Negative Date of Service: 08/01/24Follow Up: 1 Year From Orig ina Mammogram Procedure(s): MM tomosynthesis screening BI Accession Number(s): [id number] cc: Douglas Swift MD EXAMINATION: MM SCREENING [...] signed by Nelia Guardado DO in OV> 08/19/249 DD/ 9 TD/TT: 08/01/24944 Stamp Analyst: Douglas Swift MD IMG BI PROCEDURES Edited Re sult - Final documented in this encounter Visit Diagnoses Diagnosis Benign hypertension- Primary Essential hypertension, benign documented in this encounter Additional Health Concerns Assessment Noted Time PHQ-9 Depression Total Score: 1 04/19/20 23 10:42 AM EDT documented as of this encounter Care Teams Head Of Business Development Relationship Specialty Start Date End Date Douglas Swift MD [address] [place] [address] PCP - General Internal Medicine 02/26/15 documented as of this encounter
--- OUTSIDE RECORDS SUMMARY | 2025-01-08 08:25 | XMS_ITS | Encounter Summary ---
Author Organization [employer] Address [address] [place] [address] 7t [place] [address] Care Team Providers Care Soa Engineer Name Role Phone Douglas Swift MD Primary Care Provider Encounter Details Date Type Department Care Team (Latest Contact Info) Description 09/01/2022 Abstract [facility] CONVERSIONS Dental, Provider, DDS Social History Tobacco [...] on filedocumented in this encounter Care Teams Soa Engineer Relationship Specialty Start Date End Date Douglas Swift MD [address] [facility] [place] [address] PCP - General Internal Medicine 02/26/15 documented as of this encounter
--- OUTSIDE RECORDS SUMMARY | 2025-01-08 08:25 | XMS_ITS ---
Author Organization [facility] Address [address] [place] [address] Care Team Providers Care Yard Manager Name Role Phone Estee Swift M.D.[facility] Primary Care Provider Un available Erlin Kuo Unavailable [phone] REASON FOR VISIT medication Encounters Encounter Location Date Provider Diagnosis [facility] [address] [place] [address] 08/31/2023 Erlin Kuo PLAN OF TREATMENT No Information
--- OUTSIDE RECORDS SUMMARY | 2025-01-08 08:25 | XMS_ITS | Clinical Summary ---
Author Organization [facility] Address [address] [place] [address] Phone Care Team Providers Care Verifier Operator Name Role Phone Douglas Swift MD Primary Care Provider [phone] [phone] Surgical History Surgery Date Site/Laterality Comments TUBAL LIGATION PROCEDURE: HISTORICAL TUBAL LIGATION OTHER SURGICAL HISTORY 07/17/2014 PROCEDURE: MI BLEPHAROPLASTY UPPER EYELID OTHER SURGICAL HISTORY 07/2020 PROCEDURE: PULMONOLOGY BRONCHOSCOPY OTHER SURGICAL HISTORY 09/27/2020 PROCEDURE: MI INSTLJ VIA CHEST TUBE/CATH AGENT FOR PLEURODESIS OTHER SURGICAL HISTORY 09/17/2020 Right PROCEDURE: MI THORACOSCOPY W/LOBECTOMY SINGLE LOBE; COMMENT: RUL lobectomy Medical History Medical History Date Comments History of pneumonia DX:History of pneumonia Essential (primary) hypertension DX:Essential (primary) hypertension Mycobacterial disease DX:Mycobac terial disease Osteopenia DX:Osteopenia 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 DX:Primary cancer of right u pper lobe of lung (HCC) Seasonal allergies DX:Seasonal a llergies Family History Medical History Relation Name Comments Stroke Father Diabetes Mother Other: Liver Problems Sister Liver transplant recipient Lung cancer Uncle Maternal Uncle Relation Name Status Comments Father Mother Sister Uncle Alive Social History Tobacco Use Types Packs/Day Years Used Date Smoking Tobacco: Former Smokeless Tobacco: Never Comments Unknown Sex and Gender Information Value Date Recorded Sex Assigned at Not on file Legal Sex Female 2:54 AM EST Gender Identity Not on file Sexual Orientation Not on file Obstetrics History Last Filed Vital Signs Vital Sign Reading Time Taken Comments Blood Pressure 184/64 09/25/2024 10:08 AM EDT Sitting L Arm Pulse 74 09/25/2024 9:59 AM EDT Temperature - - Respiratory Rate - - Oxygen Saturation - - Inhaled Oxygen Concentration - - Weight 64.4 kg (141 lb 14.4 oz) 09/25/2024 9:59 AM EDT Height 147.3 cm (4' 10 ) 09/25/2024 9:5 9 AM EDT Body Mass Index 29.66 09/25/2024 9:59 AM EDT Plan of Treatment Health Maintenance Due Date Last Done Comments DTaP,Tdap,and Td Vaccines (2 - Td or Tdap) 11/08/2015 10/11/2015 COVID-19 Vaccine (3 - Moderna risk series) 02/26/2021 01/29/2021, 12/28/2020 Falls Risk Assessment 11/01/2022 Osteoporosis Screening (Bone Density Screening) 11/01/2022 Social Influencers of Health Screening 11/01/2022 Depression Screening 04/19/2024 04/19/2023 Hypertension/CHF/CAD Annual BMP Blood Test 08/07/2025 08/07/2024, 08/03/2024 Cholesterol Screening (Lipid Panel) 01/28/2028 01/27/2023 Pneumococcal Vaccine: 50+ Years Completed 08/25/2019, 08/27/2017, 10/11/2015 Zoster Vaccines Completed 05/26/2024, 11/2022, 06/20/2013 RSV Immunization Patients 60+ Years Old Completed 06/07/2024 Influenza Vaccine Completed 08/21/2024, , [...] on patient's age to complete this topic MMR Vaccines Aged Out No longer eligi ble based on patient's age to complete this topic Meningococcal ACWY Vaccine Aged Out N o longer eligible based on patient's age to complete this topic Meningococcal B Vacine Aged Out No lo nger eligible based on patient's age to complete this topic RSV Immunization Patients Under 20 months Aged Out No longer eligible based on patient's age to complete this topic Varicella Vaccines Aged Out No longer eligible based on patient's age to complete this topic Advance Directives Documents on File Type Date Recorded Patient Access Services Librarian Expl anation Health Care Decision (hx) 09/20/2020 AD WHEATLEY DIRECTIVE Health Care Decision (hx) 09/20/2020 AD WHEATLEY DIRECTIVE Health Care Decision (hx) 09/20/2020 AD WHEATLEY DIRECTIVE Health Care Decision (hx) 09/19/2020 AD WHEATLEY DIRECTIVE Health Care Decision (hx) 09/19/2020 AD WHEATLEY DIRECTIVE Health Care Decision (hx) 09/19/2020 AD WHEATLEY DIRECTIVE Health Care Decision (hx) 09/17/2020 AD WHEATLEY DIRECTIVE Health Care Decision (hx) 09/17/2020 AD WHEATLEY DIRECTIVE Health Care Decision (hx) 09/17/2020 AD WHEATLEY DIRECTIVE Care Teams Verifier Operator Relationship Specialty Start Date End Date Douglas Swift MD [address] [place] [address] PCP - General 03/27/24
--- OUTSIDE RECORDS SUMMARY | 2025-01-08 08:26 | XMS_ITS ---
Author Organization [facility] Address [address] [place] [address] Care Team Providers Care Software Quality Analyst Name Role Phone Douglas Swift M.D. Primary Care Provider Un available Erlin Kuo Unavailable [phone] ALLERGIES Allergen (clinical drug ingredient) Drug/Non Drug [...] Unknown Drug Allergy Act yaritza REASON FOR VISIT patient presents today for one year office recall pancreatic cyst MEDICATIONS Medication SIG (Take, Route, Frequency, Duration) Notes Start Date End Date Status Fluticasone Propionate 50 MCG/ACT Nasal for 60 Active Vitamin D (Ergocalciferol) 1.25 MG (93143 UT) TAKE 1 CAPSULE BY MOUTH ONCE WEEKLY Oral for 56 Active Albuterol Not-Taking Valium 5 MG 1 tablet as needed Orally Once a day Not-Taking MiraLax 17 GM/SCOOP as directed Orally twice a day Active Omeprazole 20 MG 1 Orally Once a day 11/21/2022 Active ClearLax 17 GM/SCOOP Oral for 10 Active Breo Ellipta 100-25 MCG/ACT INHALE 1 PUFF DAILY Inhalation for 30 Active amLODIPine Besylate 10 MG TAKE ONE TABLET BY MOUTH DAILY Oral for 90 Active Loratadine 10 MG 1 tablet Orally Once a day/prn Active tylenol Active Digestive Advantage OTC Probiotic Active SOCIAL HISTORY Tobacco Use: Social History Observation Description Date Details (start date - stop date) Never Smoker NA - NA Sex Assigned At : Social History Observation Description Sex Assigned At Unknown Tobacco Use/Smoking Question Answer Notes Patient is a nonsmoker Alcohol Screen Question Answer Notes Did you have a drink containing alcohol in the p ast year? No Points 0 Interpretation Negative VITAL SIGNS BMI 27.47 kg/m2 11/02/2023 Blood pressure systolic 00 mm Hg 11/02/20 23 Blood pressure diastolic 00 mm Hg 023 Height 59 in 11/02/2023 Temperature 97.3 degrees Fahrenheit 11/02/20 23 Weight 136 lbs 11/02/2023 Encounters Encounter Location Date Provider Diagnosis [facility] [address] [place] [address] 11/02/2023 Erlin Kuo Pancreatic cyst K86. 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 Next Appt Details Follow Up: prn, Reason: Progress Notes * Examination Category Sub-Category Detail Notes General Examination GENERAL APPEARANCE: pleasant , well nourished, well developed, in no acute distress HEAD: EYES: sclera non-icteric EARS: NOSE: THROAT: NECK/THYROID: no cervical lymphade nopathy, neck supple HEART: S1, S2 normal CHEST: LUNGS: clear to auscultatio n bilaterally ABDOMEN: normal bowel sounds, no guarding or rigidity, no guarding or rigidity, no masses palpable, soft, nontender, nondistended NEUROLOGIC: alert and oriented SKIN: nonjaundiced, no spi selene angiomata EXTREMITIES: no edema PERIPHERAL PULSES: BACK: BREASTS: MUSCULOSKELETAL: MALE GENITOURINARY: LYMPH NODES: RECTAL EXAM: FEMALE GENITOURINARY: ORAL CAVITY: mucosa moist
[2025-01-14 15:18] LABS: Plasma Renin Activity 1.31 ng/mL/h (0.25-5.82)
== END 2025-01-08 08:12 | disposition home or self-care (01) ==
LOC: HO.CHCLDS 08:11
PROVIDERS: Visit Provider Internal Medicine
DX: I10 Essential (primary) hypertension (principal); I25.10 Atherosclerotic heart disease of native coronary artery without angina pectoris
CPT/HCPCS: 36415; 82088

== ENCOUNTER 2025-08-31 08:42 | Outpatient (REF) | payer OTHER, SELFPAY ==
--- OUTSIDE RECORDS SUMMARY | 2025-08-28 08:00 | XMS_ITS | Encounter Summary ---
Author Organization [employer] Address [address] [facility] 7t [place] [address] Care Team Providers Care Adjunct Nursing Faculty Name Role Phone Douglas Swift MD Primary Care Provider [phone]- [phone] Reason for Visit * Reason Comments Dentures Encounter Details Date Type Department Care Team ([facility] st Contact Info) Description 08/28/2025 8:00 AM EDT Office Visit [facility] [address] [place], [place] [phone] Mamadou Dwyerio [address] [place], [place] [phone] Social History Tobacco Use Types Packs/Day Years [...] Recorded Patient Health Questionnaire-2 Score 0 05/22/2024 Internet Access Answer Date Recorded Internet Access Q1 No 03/07/2025 Internet Access Q2 I do not want or need it 07/2025 Comments Unknown Sex and Gender Information Value Date Recorded Sex Assigned at Female 09/28/2022 10:15 AM EDT Legal Sex Female 10:15 AM EDT Gender Identity Female 09/28/2022 10:15 AM EDT Sexual Orientation Choose not to disclose 2021 10:15 AM EDT documented as of this encounter Progress Notes * Gt Dwyer - 08/28/2025 8:00 AM EDT Dental procedures in this visit D5110.7 - DENTURE IMPRESSION (Completed) Service provider: Gt Dwyer Billing provider: Ramandeep Dueñas DDS [id number] - CASE PRESENTATION, DETAILED AND EXTENSIVE TREATMENT PLANNING (Completed) Service provider: Gt Dwyer [place] provider: Ramandeep Dueñas DDS Patient ID: Elda Vogt is a 85 y.o. female. Time Out: Date: 08/28/2025 Location: [facility] Tooth: Maxilla and Mandible Procedure: Dentures Verified the above with patient, food and beverage assistant manager, and provider. Confirmed via patient's chart, intraorally and by radiographs. Knit Goods Mender: not applicable Upper and Lower border molding done for upper and lower complete dentures by Dr. Gt Dwyer Medical history: Reviewed in EHR Vitals: There were no vitals taken for this visit. Allergies: reviewed in EHR Medications: reviewed in EHR - Upper and lower border molding done using heavy body VPS material. - Escape holes made using bur. - Final impression made using light body impression material. - Case to be sent to [facility] Dental lab for wax rims for bite registration - Case asked to be back on: 09/14/25 - Patient released in stable conditions. Patient satisfied, left in stable condition NV: bite registration Provider: - Dr. Gt Dwyer Director Surface Transportation: Deyanira De Paz Supervising dentist: Dr. Dueñas * Ramandeep Dueñas DDS - 08/28/2025 8:00 AM EDT I have reviewed the documentation and dental procedures completed by the rendering provider, Gt Dwyer DDS, and approve their chart entries for this visit. MARIBEL Lewis DDS documented in this encounter Miscellaneous Notes * Addendum Note - Gt Dwyer - 08/28/2025 8:00 AM EDTAddended by: GT DWYER on: 08/29/2025 11:30 AM Modules accepted: Orders documented in this encounter Plan of Treatment Upcoming Encounters Date Type Department Care Team (Late st Contact Info) Description 09/12/2025 11:00 AM EDT Office Visit [facility] [address] [place] [address] Gt Dwyer [address] [place] [address] 01/08/2026 8:00 AM EST Office Visit [facility] [address] [place] [address] Benedict Swift Scheduled Orders Name Type Priority Associated Diagnoses Orde r Schedule DENTAL LAB DENTURES AND PARTIALS Dental Routine Ordered: 025 DENTAL LAB DENTURES AND PARTIALS Dental Routine Ordered: 025 documented as of this encounter Procedures Procedure Name Priority Date/Time Associated Diagnosis Comments DENTURE IMPRESSION Routine 08/28/2025 8:00 AM EDT CASE PRESENTATION, DETAILED AND EXTENSIVE TREATMENT PLANNING Routine 08/28/2025 8:00 AM EDT documented in this encounter Visit Diagnoses Not on filedocumented in this encounter Additional Health Concerns Assessment Noted Time PHQ-9 Depression Total Score: 1 04/19/20 23 10:42 AM EDT documented as of this encounter Care Teams Adjunct Nursing Faculty Relationship Specialty Start Date End Date Douglas Swift MD [address] [place] [address] PCP - General Internal Medicine 02/26/15 documented as of this encounter
--- OUTSIDE RECORDS SUMMARY | 2025-08-31 09:04 | XMS_ITS | Encounter Summary ---
Author Organization [employer] Address [address] [facility] 7t [place] [address] Care Team Providers Care Bindery Leadperson Name Role Phone Douglas Swift MD Primary Care Provider [phone]- [phone] Reason for Visit * Reason Comments Med Refill Encounter Details Date Type Department Care Team ([facility] st Contact Info) Description 08/28/2025 Refill [facility] MED & PED[facility] [address] [place], [place] [phone] Douglas Swift MD [address] [place], [place] [phone] Seasonal allergies Social History Tobacco Use Types Packs/Day Years [...] the past 12 months, has t he [employer], gas, oil or water company threatened to [...] as of this encounter Plan of Treatment Upcoming Encounters Date Type Department Care Team (Late st Contact Info) Description 09/12/2025 11:00 AM EDT Office Visit [facility] [address] [place] [address] Alcides Patel [address] [place] [address] 01/08/2026 8:00 AM EST Office Visit [facility] [address] [place] [address] Benedict Swift documented as of this encounter Visit Diagnoses Diagnosis Seasonal allergies Allergic rhinitis, cause unspecified documented in this encounter Additional Health Concerns Assessment Noted Time PHQ-9 Depression Total Score: 1 04/19/20 23 10:42 AM EDT documented as of this encounter Care Teams Bindery Leadperson Relationship Specialty Start Date End Date Douglas Swift MD [address] [place] [address] PCP - General Internal Medicine 02/26/15 documented as of this encounter
--- OUTSIDE RECORDS SUMMARY | 2025-08-31 09:04 | XMS_ITS | Encounter Summary ---
Author Organization [employer] Address [address] [facility] 7t [place] [address] Care Team Providers Care Corn Husk Baler Name Role Phone Douglas Swift MD Primary Care Provider Encounter Details Date Type Department Care Team ([facility] Contact Info) Description 05/14/2023 Abstract [facility] MED [facility] PED[facility] [address] [place], [place] [phone] Douglas Swift MD [address] [place] [address] Social History Tobacco Use Types Packs/Day Years [...] Encounters Date Type Department Care Team (Late Contact Info) Description 09/12/2025 11:00 AM EDT Office Visit [facility] [address] [place] [address] Alcides Patel [address] [place] [address] 01/08/2026 8:00 AM EST Office Visit [facility] [address] [place] [address] Benedict Swift documented as of this encounter Visit Diagnoses Not on filedocumented in this encounter Additional Health Concerns Assessment Noted Time PHQ-9 Depression Total Score: 1 04/19/20 23 10:42 AM EDT documented as of this encounter Care Teams Corn Husk Baler Relationship Specialty Start Date End Date Douglas Swift MD [address] [place] [address] PCP - General Internal Medicine 02/26/15 documented as of this encounter
--- OUTSIDE RECORDS SUMMARY | 2025-08-31 09:04 | XMS_ITS | Encounter Summary ---
Author Organization [employer] Address [address] [facility] 7t [place] [address] Care Team Providers Care Grinder And Plater Name Role Phone Douglas Swift MD Primary Care Provider [phone]- [phone] Reason for Visit * Reason Onset Date Comments Triage 03/25/2023 Encounter Details Date Type Department Care Team ([facility] st Contact Info) Description 03/25/2023 Telephone [facility] [address] [place] [address] Douglas Swift MD [address] [place], [place] [phone] Triage Social History Tobacco Use Types Packs/Day [...] hip /back area. Pt was seen by [facility], roswelled 03/24 and received an injection which didn't [...] provider. apt made with Dr. Dangelo @ [facility] 03/26. Pt agrees with disposition and home [...] Description 09/12/2025 11:00 AM EDT Office Visit [facility] [address] [place] [address] Alcides Patel [address] [place] [address] 01/08/2026 8:00 AM EST Office Visit [facility] [address] [place] [address] Benedict Swift documented as of this encounter Visit Diagnoses Not on filedocumented in this encounter Care Teams Grinder And Plater Relationship Specialty Start Date End Date Douglas Swift MD [address] [place] [address] PCP - General Internal Medicine 02/26/15 documented as of this encounter
--- OUTSIDE RECORDS SUMMARY | 2025-08-31 09:04 | XMS_ITS | Encounter Summary ---
Author Organization [employer] Address [address] [facility] 7t [place] [address] Care Team Providers Care Welding Machine Assembler Name Role Phone Douglas Swift MD Primary Care Provider [phone]- [phone] Reason for Visit * Reason Comments Med Refill Encounter Details Date Type Department Care Team ([facility] st Contact Info) Description 08/27/2025 Refill [facility] MED & PEDS [address] [place], [place] [phone] Douglas Swift MD [address] [place], [place] [phone] Benign hypertension Social History Tobacco Use Types Packs/Day Years [...] the past 12 months, has t he [employer], gas, oil or water company threatened to [...] AM EDT Office Visit [facility] [address] [place] [address] Alcides Patel [address] [place] [address] 01/08/2026 8:00 AM EST Office Visit [facility] [address] [place] [address] Benedict Swift documented as of this encounter Visit Diagnoses Diagnosis Benign hypertension Essential hypertension, benign documented in this encounter Additional Health Concerns Assessment Noted Time PHQ-9 Depression Total Score: 1 04/19/20 23 10:42 AM EDT documented as of this encounter Care Teams Welding Machine Assembler Relationship Specialty Start Date End Date Douglas Swift MD [address] [place] [address] PCP - General Internal Medicine 02/26/15 documented as of this encounter
--- OUTSIDE RECORDS SUMMARY | 2025-08-31 09:04 | XMS_ITS | Encounter Summary ---
Author Organization [employer] Address [address] [facility] 7t [place] [address] Care Team Providers Care Motor Vehicle Technician Name Role Phone Douglas Swift MD Primary Care Provider +1- [phone] Encounter Details Date Type Department Care Team (Late st Contact Info) Description 12/28/2024 Telephone [facility] [address] [place], [place] [phone] Douglas Swift MD [address] [place], [place] [phone] Social History Tobacco Use Types Packs/Day Years [...] 09/12/2025 11:00 AM EDT Office Visit [facility] [address] [place] [address] Alcides Patel [address] [place] [address] 01/08/2026 8:00 AM EST Office Visit [facility] [address] [place] [address] Benedict Swift documented as of this encounter Visit Diagnoses Not on filedocumented in this encounter Additional Health Concerns Assessment Noted Time PHQ-9 Depression Total Score: 1 04/19/20 23 10:42 AM EDT documented as of this encounter Care Teams Motor Vehicle Technician Relationship Specialty Start Date End Date Douglas Swift MD [address] [place] [address] PCP - General Internal Medicine 02/26/15 documented as of this encounter
--- OUTSIDE RECORDS SUMMARY | 2025-08-31 09:05 | XMS_ITS | Encounter Summary ---
Author Organization [employer] Address [address] [facility] 7t [place] [address] Care Team Providers Care Full Time Staff Interpreter Name Role Phone Douglas Swift MD Primary Care Provider [phone] Reason for Visit * Reason Comments Med Refill Encounter Details Date Type Department Care Team ([facility] st Contact Info) Description 07/27/2025 Refill [facility] MED & PEDS [address] [place], [place] [phone] Jessi Dangelo MD [address] [place], [place] [phone] Benign hypertension Social History Tobacco Use Types [...] Description 09/12/2025 11:00 AM EDT Office Visit [facility] [address] [place] [address] Alcides Patel [address] [place] [address] 01/08/2026 8:00 AM EST Office Visit [facility] [address] [place] [address] Benedict Swift documented as of this encounter Visit Diagnoses Diagnosis Benign hypertension Essential hypertension, benign documented in this encounter Additional Health Concerns Assessment Noted Time PHQ-9 Depression Total Score: 1 04/19/20 23 10:42 AM EDT documented as of this encounter Care Teams Full Time Staff Interpreter Relationship Specialty Start Date End Date Douglas Swift MD [address] [place] [address] PCP - General Internal Medicine 02/26/15 documented as of this encounter
--- OUTSIDE RECORDS SUMMARY | 2025-08-31 09:05 | XMS_ITS | Encounter Summary ---
Author Organization [employer] Address [address] [facility] 7t [place] [address] Care Team Providers Care Photo Studio Assistant Name Role Phone Douglas Swift MD Primary Care Provider [phone]- [phone] Encounter Details Date Type Department Care Team (Late st Contact Info) Description 09/20/2024 Orders Only [facility] CH[facility] MED & PEDS [address] [place], [place] [phone] Provider, MD Jose F Social History Tobacco [...] 11:00 AM EDT Office Visit [facility] [address] [place] [address] Mamadou Patelio [address] [place] [address] 01/08/2026 8:00 AM EST Office Visit [facility] [address] [place] [address] Benedict Swift documented as of this encounter Procedures Procedure [...] documented as of this encounter Care Teams Photo Studio Assistant Relationship Specialty Start Date End Date Douglas Swift MD [address] [place] [address] PCP - General Internal Medicine 02/26/15 documented as of this encounter
--- OUTSIDE RECORDS SUMMARY | 2025-08-31 09:05 | XMS_ITS | Encounter Summary ---
Author Organization [employer] Address [address] [facility] 7t [place] [address] Care Team Providers Care Departmental Buyer Name Role Phone Douglas Swift MD Primary Care Provider +1- [phone] Encounter Details Date Type Department Care Team ([facility] st Contact Info) Description 08/07/2025 Orders Only [facility] CH[facility] MED & PEDS [address] [place], [place] [phone] Douglas Swift MD [address] [place], [place] [phone] Benign hypertension (Primary Dx) Social History Tobacco [...] Description 09/12/2025 11:00 AM EDT Office Visit [facility] [address] [place] [address] Alcides Patel [address] [place] [address] 01/08/2026 8:00 AM EST Office Visit [facility] [address] [place] [address] Benedict Swift documented as of this encounter Visit Diagnoses Diagnosis Benign hypertension- Primary Essential hypertension, benign documented in this encounter Additional Health Concerns Assessment Noted Time PHQ-9 Depression Total Score: 1 04/19/20 23 10:42 AM EDT documented as of this encounter Care Teams Departmental Buyer Relationship Specialty Start Date End Date Douglas Swift MD [address] [place] [address] PCP - General Internal Medicine 02/26/15 documented as of this encounter
--- OUTSIDE RECORDS SUMMARY | 2025-08-31 09:05 | XMS_ITS | Encounter Summary ---
Author Organization [employer] Address [address] [facility] 7t [place] [address] Care Team Providers Care Roll Out Manager Name Role Phone Douglas Swift MD Primary Care Provider +1- [phone] Reason for Visit * Reason Onset Date Comments Verbal Orders 08/11/2024 Encounter Details Date Type Department Care Team (Late st Contact Info) Description 08/11/2024 Telephone [facility] MEDICINE [address] [place], [place] [phone] Douglas Swift MD [address] [place], [place] [phone] Verbal Orders Social History Tobacco Use Types [...] Miscellaneous Notes * Telephone Encounter - Yomi Chay - 08/11/2024 2:46 PM EDT Tc from Addie with [facility] requesting verbal orders. Please contact Addie at [phone] opt 2. documented in this encounter Plan of Treatment Upcoming Encounters Date Type Department Care Team (Late st Contact Info) Description 09/12/2025 11:00 AM EDT Office Visit [facility] ADULT DENTAL [address] [place] [address] Jorge Alcides 505 [place] [address] 01/08/2026 8:00 AM EST Office Visit [facility] ADULT DENTAL [address] [place] [address] Benedict Swift documented as of this encounter Visit Diagnoses Not on filedocumented in this encounter Additional Health Concerns Assessment Noted Time PHQ-9 Depression Total Score: 1 04/19/20 23 10:42 AM EDT documented as of this encounter Care Teams Roll Out Manager Relationship Specialty Start Date End Date Douglas Swift MD [address] [place] [address] PCP - General Internal Medicine 02/26/15 documented as of this encounter
--- OUTSIDE RECORDS SUMMARY | 2025-08-31 09:05 | XMS_ITS | Encounter Summary ---
Author Organization [employer] Address [address] [facility] 7t [place] [address] Care Team Providers Care Environmental Aid Name Role Phone Douglas Swift MD Primary Care Provider +1- [phone] Encounter Details Date Type Department Care Team ([facility] st Contact Info) Description 03/20/2025 Orders Only [facility] CHC MED & PEDS [address] [place], [place] [phone] Douglas Swift MD 505 [place], [place] [phone] Vitamin D deficiency (Primary Dx) Social History Tobacco Use Types [...] Description 09/12/2025 11:00 AM EDT Office Visit [facility] ADULT DENTAL [address] [place] [address] Alcides Patel 505 [place] [address] 01/08/2026 8:00 AM EST Office Visit [facility] ADULT DENTAL [address] [place] [address] Benedict Swift documented as of this encounter Visit Diagnoses Diagnosis Vitamin D deficiency- Primary documented in this encounter Additional Health Concerns Assessment Noted Time PHQ-9 Depression Total Score: 1 04/19/20 23 10:42 AM EDT documented as of this encounter Care Teams Environmental Aid Relationship Specialty Start Date End Date Douglas Swift MD 505 [place] [address] PCP - General Internal Medicine 02/26/15 documented as of this encounter
--- OUTSIDE RECORDS SUMMARY | 2025-08-31 09:05 | XMS_ITS | Encounter Summary ---
Author Organization [employer] Address [address] [facility] 7t [place] [address] Care Team Providers Care Geropsychologist Name Role Phone Douglas Swift MD Primary Care Provider [phone]- [phone] Reason for Visit * Reason Onset Date Comments Medication Question 07/26/2025 Encounter Details Date Type Department Care Team (Late st Contact Info) Description 07/26/2025 Telephone [facility] MEDICINE [address] [place], [place] [phone] Douglas Swift MD 505 [place], [place] [phone] Medication Question Social History Tobacco Use Types Packs/Day Years [...] encounter Miscellaneous Notes * Telephone Encounter - Denisse Garcia LPN - 08/07/2025 3:25 PM EDT Please see message below and advise. * Telephone Encounter - Zenon Hernandez - 07/26/2025 1:49 PM EDT TC from pt Confused about medication Losartan 25mg . Per pt she has been taking 50mg but had noticed direction today indicating .5 tablets . In addition pt states had discuss with Dr Swift her bug bites and needing a script for it . documented in this encounter Plan of Treatment Upcoming Encounters Date Type Department Care Team (Late st Contact Info) Description 09/12/2025 11:00 AM EDT Office Visit [facility] ADULT DENTAL 505 [place] [address] Alcides Patel 505 [place] [address] 01/08/2026 8:00 AM EST Office Visit [facility] ADULT DENTAL [address] [place] [address] Benedict Swift documented as of this encounter Visit Diagnoses Not on filedocumented in this encounter Additional Health Concerns Assessment Noted Time PHQ-9 Depression Total Score: 1 04/19/20 23 10:42 AM EDT documented as of this encounter Care Teams Geropsychologist Relationship Specialty Start Date End Date Douglas Swift MD [address] [place] [address] PCP - General Internal Medicine 02/26/15 documented as of this encounter
--- OUTSIDE RECORDS SUMMARY | 2025-08-31 09:05 | XMS_ITS | Encounter Summary ---
Author Organization [employer] Address 75 [facility] 7t [place] [address] Care Team Providers Care Electrical Appliance Mechanic Name Role Phone Douglas Swift MD Primary Care Provider [phone]- [phone] Reason for Visit * Reason Comments Med Refill Encounter Details Date Type Department Care Team ([facility] st Contact Info) Description 03/17/2025 Refill [facility] CHC MED & PEDS 505 [place], [place] [phone] Douglas Swift MD 505 [place], [place] [phone] Vitamin D deficiency Social History Tobacco Use Types Packs/Day Years [...] t he electric, gas, oil or water [employer] threatened to shut off services in your [...] Visit [facility] ADULT DENTAL 505 [place] [address] Alcides Patel 505 [place] [address] 01/08/2026 8:00 AM EST Office Visit [facility] ADULT DENTAL [address] [place] [address] Benedict Swift documented as of this encounter Visit Diagnoses Diagnosis Vitamin D deficiency documented in this encounter Additional Health Concerns Assessment Noted Time PHQ-9 Depression Total Score: 1 04/19/20 23 10:42 AM EDT documented as of this encounter Care Teams Electrical Appliance Mechanic Relationship Specialty Start Date End Date Douglas Swift MD 505 [place] [address] PCP - General Internal Medicine 02/26/15 documented as of this encounter
--- OUTSIDE RECORDS SUMMARY | 2025-08-31 09:05 | XMS_ITS | Clinical Summary ---
Author Organization [employer] Address [address] [facility] 7t [place] [address] Care Team Providers Care Knife Setter Grinder Machine Name Role Phone Douglas Swift MD Primary Care Provider +1- [phone] Allergies Active Allergy Reactions Criticality Noted Date [...] FOR SHORTNESS OF BREATH OR WHEEZING Active pantoprazole (Protonix) 40 MG EC tabletIndications :Gastroesophageal reflux disease without esophagitis Take 1 tablet (40 mg) by mouth before breakfast. Do not crush, chew, or split. 30 tablet 11 024 Active rosuvastatin (Crestor) 40 MG tabletIndications :Mixed hyperlipidemia Take 1 tablet (40 mg) by mouth Once per day. 30 tablet 11 024 2024 Active omeprazole (PriLOSEC) [address] capsule Take 1 capsule (20 mg) by mouth before breakfast. Do not crush or chew. 30 capsule Active lidocaine (Xylocaine) 5 % ointmentIndicatio ns:Costochondriti s Apply topically if needed for mild pain. 50 g 1 025 2025 Active cholecalciferol (Vitamin D-3) 125 MCG (5000 UT) capsuleIndication s:Vitamin D deficiency 5000 units once a week. 4 capsule 2 Active hydrocortisone 2.5 % creamIndications: Bug bite, initial encounter Apply topically 2 times daily. 15 g Active losartan (Cozaar) 50 MG tabletIndications :Benign hypertension Take 1 tablet (50 mg) by mouth Once per day. 30 tablet 025 2025 Active ClearLax 17 GM/SCOOP powderIndications :Chronic constipation TAKE 17 GRAMS MIXED DIRECTED AND DRINK ONCE PER DAY 850 g 3 Active amLODIPine (Norvasc) 2.5 MG tabletIndications :Benign hypertension TAKE ONE TABLET BY MOUTH EVERY DAY AT BEDTIME 30 tablet Active Allergy Relief 10 MG tabletIndications :Seasonal allergies TAKE ONE TABLET BY MOUTH EVERY MORNING 30 tablet Active aspirin 81 MG EC tabletIndications :NSTEMI (non-ST elevated myocardial infarction) (HCC) Take 1 tablet (81 mg) by mouth Once per day. 30 tablet 024 2024 clopidogrel (Plavix) 75 MG tabletIndications :NSTEMI (non-ST elevated myocardial infarction) (HCC) Take 1 tablet (75 mg) by mouth Once per day. 30 tablet 024 2024 losartan (Cozaar) 25 MG tabletIndications :Benign hypertension,NSTE IA (non-ST elevated myocardial infarction) (HCC) Take 0.5 tablets (12.5 mg) by mouth Once per day. Take in the morning. 15 tablet 024 2024 Discontinued(T herapy completed) amLODIPine (Norvasc) 2.5 MG tabletIndications :Benign hypertension Take 1 tablet (2.5 mg) by mouth Once per day. Take at bedtime. 30 tablet 11 024 2024 Discontinued polyethylene glycol, PEG, 3350 (ClearLax) 17 GM/SCOOP powderIndications :Chronic constipation Take 17 g by mouth Once per day. 850 g 3 025 2024 Discontinued Allergy Relief 10 MG tabletIndications :Seasonal allergies TAKE ONE TABLET BY MOUTH EVERY MORNING 30 tablet 025 2024 Discontinued Active Problems Problem Noted Date Diagnosed Date Chest wall pain 02/26/2025 Pleurisy 02/19/2025 Coronary artery disease invo lving [place] heart without angina pectoris 01/05/2025 Hypertension 08/21/2024 [place] of toe 03/26/2023 Assessment & Plan (03/26/2023 [...] added by Discern Expert Adenocarcinoma of lung ([facility]) 07/26/2020 Pancreatic cyst 01/25/2019 Adrenal adenoma 01/25/2019 Benign hypertension 03/02/2012 Hyperlipidemia 03/02/2012 Allergic rhinitis 01/20/2012 Disorder of skeletal muscle 11/27/2011 Encounters Date Type Department Care Team Description 08/28/2025 8:00 AM EDT Office Visit [facility] ADULT DENTAL [address] [place] [address] Alcides Patel 08/28/2025 Refill [facility] MED & PEDS [address] [place], [place] [phone] Douglas Swift MD Seasonal allergies 08/27/2025 Refill [facility] CHC MED & PEDS [address] [place], [place] [phone] Douglas Swift MD Benign hypertension 08/14/2025 Refill [facility] MED & PEDS [address] [place], [place] [phone] Douglas Swift MD Chronic constipation 08/08/2025 2:20 PM EDT Office Visit [facility] MED & PEDS [address] [place], [place] [phone] Douglas Swift MD Benign hypertension (Primary Dx) 08/08/2025 Travel 08/07/2025 Orders Only [facility] MED & PEDS [address] [place], [place] [phone] Douglas Swift MD Benign hypertension (Primary Dx) 08/07/2025 Telephone [facility] MED & PEDS [address] [place], [place] [phone] Douglas Swift MD Medication Question 08/07/2025 Refill [facility] MED & PEDS [address] [place] [address] Jessi Dangelo MD Benign hypertension 08/05/2025 Refill [facility] MED & PEDS [address] [place] [address] Jessi Dangelo MD Benign hypertension 08/03/2025 9:00 AM EDT Office Visit [facility] ADULT DENTAL [address] [place] [address] Alcides Patel 07/29/2025 Refill [facility] MED & PEDS [address] [place], [place] [phone] Douglas Swift MD Seasonal allergies 07/27/2025 Refill [facility] MED & PEDS [address] [place], [place] [phone] Jessi Dangelo MD Benign hypertension 07/26/2025 Telephone [facility] MEDICINE [address] [place] [phone] Douglas Swift MD Medication Question 07/25/2025 Telephone [facility] MED & PEDS [address] [place] [address] Douglas Swift MD Med Refill 07/03/2025 8:00 AM EDT Office Visit [facility] ADULT DENTAL [address] [place] [address] Benedict Swift Dental calculus (Primary Dx) 06/26/2025 Refill [facility] MED & PEDS [address] [place] [address] Douglas Swift MD Seasonal allergies 06/25/2025 9:15 AM EDT Office Visit [facility] MED & PEDS [address] [place] [address] Douglas Swift MD Vitamin D deficiency (Primary Dx); Benign hypertension; Bug bite, initial encounter; Muscle cramps; Encounter for immunization 06/25/2025 Travel from Last 3 Months Immunizations Immunization Administration Dates Next Due Influenza High-dose Quadriva lent Preservative Free 08/16/2023,08/10/2022,09/05/2021,09/25 Influenza injectable quadriv alent IIV4 with preservative 08/27/2017,08/18/2016,08/20/2015 Influenza, High Dose Seasona l, Preservative Free 08/21/2024,08/25/2019,08/17/2018 Influenza, IIV3, injectable 08/31/2022,1 ,07/30/2021,09/25,07/30/2020,08/25/2019,08/17/2018 ,08/27/2017,08/18/2016,08/20/2015,07/30 Influenza, Split (incl. [place] antigen) 08/09/2013,08/05/2012 Pneumococcal Conjugate PCV 13 08/27/2017, 015 Pneumococcal Polysaccharide PPSV23 08/25/2019 RSV Bivalent 06/07/2024 Tdap 06/25/2025,10/11/2015 Zoster, Recombinant 05/26/2024,07/30/2023 Zoster, live 06/20/2013 Social [...] t he electric, gas, oil or water meets threatened to shut off services in your [...] Sign Reading Time Taken Comments Blood Pressure 178/68 08/08/2025 2:22 PM EDT Pulse 67 08/08/2025 2:22 PM EDT Temperature 36.8 C (98.2 F) 06/25/2025 9:15 AM EDT Respiratory Rate 20 08/08/2025 2:22 PM EDT Oxygen Saturation 97% 08/08/2025 2:22 PM EDT Inhaled Oxygen Concentration - - Weight 61.2 kg (135 lb) 08/08/2025 2:22 PM EDT Height 147.3 cm (4' 10 ) 08/08/2025 2:22 PM EDT Body Mass Index 28.22 08/08/2025 2:22 PM EDT Plan of Treatment Upcoming Encounters Date Type Department Care Team ([facility] st Contact Info) Description 09/12/2025 11:00 AM EDT Office Visit [facility] ADULT DENTAL [address] [place] [address] Alcides Patel 505 [place] [address] 01/08/2026 8:00 AM EST Office Visit [facility] ADULT DENTAL [address] [place] [address] Benedict Swift Health Maintenance Due Date Last Done Comments Alcohol/Substance Use Screening 1952 Dental X-Ray: Full Mouth 04/02/2024 04/01/2021 Dental Oral Exam 09/24/2024 03/24/2024, 02/2022, 04/01/2021, Additional history exists Depression Screening 05/22/2025 05/22/2024, 04/19/20 23 COVID-19 Vaccine ( - season) 2025 01/29/2021, 12/28/2020 Influenza Vaccine (#1) 2025 , 08/16/2023, 08/31/2022, Additional history exists Dental Prophylaxis 01/04/2026 07/03/2025, 0 03/24/2024, 09/01/2022, Additional history exists SDOH Screening 03/07/2026 03/07/2025 Dental X-Ray: Bitewings 07/04/2026 07/03/2025, 04/20 Mammogram 08/01/2026 08/01/2024, 07/2 02/2023, 04/28/2023, Additional history exists Tobacco Screening 08/28/2026 08/28/2025 Lipid Panel 01/28/2028 01/27/2023, 04/06/2022 DTaP/Tdap/Td Vaccines (3 - Td or Tdap) 06/25/2035 06/25/2025, 10/11/2015 Pneumococcal Vaccine: 50+ Years Completed 08/25/2019, 08/27/2017, 10/11/2015 Zoster Vaccines Completed 05/26/2024, 11/2022, 06/20/2013 RSV Patients and Patients Aged 60 years or older Completed 06/07/2024 HIB Vaccines Aged Out No longer eligi [...] age to complete this topic Meningococcal B Vaccine Aged Out No l onger eligible based on patient's age to complete [...] Procedure Name Priority Date/Time Associated Diagnosis Comments CASE PRESENTATION, DETAILED AND EXTENSIVE TREATMENT PLANNING Routine 08/28/2025 8:00 AM EDT DENTURE IMPRESSION Routine 08/28/2025 8: 00 AM EDT CASE PRESENTATION, DETAILED AND EXTENSIVE TREATMENT PLANNING Routine 08/03/2025 9:00 AM EDT DENTURE IMPRESSION Routine 08/03/2025 9: 00 AM EDT BITEWING - SINGLE RADIOGRAPHIC IMAGE Routine 07/03/2025 8:00 AM EDT INTRAORAL - PERIAPICAL EACH ADDITIONAL RADIOGRAPHIC IMAGE Routine 07/03/2025 8:00 AM EDT INTRAORAL - PERIAPICAL EACH ADDITIONAL RADIOGRAPHIC IMAGE Routine 07/03/2025 8:00 AM EDT INTRAORAL - PERIAPICAL EACH ADDITIONAL RADIOGRAPHIC IMAGE Routine 07/03/2025 8:00 AM EDT INTRAORAL - PERIAPICAL FIRST RADIOGRAPHIC IMAGE Routine 07/03/2025 8:00 AM EDT CASE PRESENTATION, DETAILED AND EXTENSIVE TREATMENT PLANNING Routine 07/03/2025 8:00 AM EDT ORAL HYGIENE INSTRUCTIONS Routine 07/03/2025 8:00 AM EDT PROPHYLAXIS - ADULT Routine 07/03/2025 8 :00 AM EDT BI MAMMOGRAM SCREENING TOMOSYNTHESIS BILATERAL Routine 08/01/2024 9:30 AM EDT PERIODIC ORAL EVALUATION - ESTABLISHED [...] AM EDT Narrative 08/19/2024 10:41 PM EDT [facility] [address] [place] [address] Mammography Report Signed Patient: Elda Vogt MR#: [id number] : 1940 Acct:[id number] Age/Sex: 83 / F ADM Date: 08/01/24 Loc: HO.MAMMO Attending Dr: Douglas Swift MD Ordering Physician: Douglas Swift MD Results: 1 Negative Date of Service: 08/01/24 Follow Up: 1 Year From [facility] Mammogram Procedure(s): MM tomosynthesis screening BI Accession Number(s): [id number] cc: Douglas Swift MD EXAMINATION: MM SCREENING [...] Nelia Guardado DO 08/19/2024 10:39 PM EDT RP Dictated By: Nelia Guardado DO Signed By: <Electronically signed by Nelia Guardado DO in OV> 08/19/249 DD/ 9 TD/TT: 08/01/24944 Community Organization Worker: Procedure Note Donotuseinterpreter, Image - 08/19/2024 [facility] [address] [place] [address] Mammography Report Signed Patient: Elda Vogt MMR#: [id number] : 1940cct:[id number] Age/Sex: 83 / FADM Date: 08/01/24 Loc: HO.MAMMO Attending Dr: Douglas Swift MD Ordering Physician: Douglas wSift MDResults: 1 Negative Date of Service: 08/01/24Follow Up: 1 Year From Orig ina Mammogram Procedure(s): MM tomosynthesis screening BI Accession Number(s): [id number] cc: Douglas Swift MD EXAMINATION: MM SCREENING [...] signed by Nelia Guardado DO in OV> 08/19/24 2239 DD/ 9 TD/TT: 08/01/24 0945 Community Organization Worker: Douglas Swift MD IMG BI PROCEDURES Edited Re sult - Final * (ABNORMAL) Lipid Panel, Standard (01/27/2023 11:16 AM EST) Cholesterol, Total 271(H) <200 mg/dL [facility] HDL Cholesterol 64 > OR = 50 mg/dL [facility] Triglycerides 166(H) <150 mg/dL [facility] LDL Cholesterol 176(H) mg/dL (calc) [facility] Comment: Reference range: <100 Desirable range <100 mg/dL for primary prevention; <70 mg/dL for patients with CHD or diabetic patients with > or = 2 CHD risk factors. LDL-C is now calculated using the Figueroa-Addison calculation, which is a validated novel method providing better accuracy than the Friedewald equation in the estimation of LDL-C. Figueroa SS et al. TAYLOR. 2013;310(19): 2264-9747 (http://education.[employer].Collusion/faq/TLK080) Chol/HDLC Ratio 4.2 <5.0 (calc) [facility] Non-HDL Cholesterol 207(H) <130 mg/dL (calc) [facility] Comment: For patients with diabetes plus 1 major ASCVD risk factor, treating to a non-HDL-C goal of <100 mg/dL (LDL-C of <70 mg/dL) is considered a therapeutic option. 01/27/2023 11:1 6 AM EST 01/27/2023 11:17 AM EST Narrative [facility] - 01/28/2023 8:55 AM EST FASTING:NO FASTING: NO us Douglas Swift MD LAB BLOOD ORDERABLES Final Result [facility] [address] [facility], [place] [address] [facility] [address], (N[address]) [place] [address] from Last 3 Months or Most Recently Relevant to Health Maintenance Insurance [facility] (O D-SNP) [place] [id number] DENTAL [facility] Advance Directives Documents on File Type Date Recorded Patient Judicial Assistant Expl anation MOLST form 09/19/2024 3:32 PM [facility] Care Teams Knife Setter Grinder Machine Relationship Specialty Start Date End Date Douglas Swift MD [address] [place] [address] [place] [address] PCP - General Internal Medicine 02/26/15
--- OUTSIDE RECORDS SUMMARY | 2025-08-31 09:05 | XMS_ITS | Encounter Summary ---
Author Organization [employer] Address [address] [facility] 7t [place] [address] Care Team Providers Care Flight Attendant Name Role Phone Douglas Swift MD Primary Care Provider [phone]- [phone] Encounter Details Date Type Department Care Team ([facility] st Contact Info) Description 07/11/2024 Orders Only [facility] CHC MED & PEDS [address] [place], [place] [phone] Douglas Swift MD 505 [place], [place] [phone] Benign hypertension (Primary Dx) Social History Tobacco [...] Description 09/12/2025 11:00 AM EDT Office Visit [facility] ADULT DENTAL [address] [place] [address] Jorge Alcides 505 [place] [address] 01/08/2026 8:00 AM EST Office Visit [facility] ADULT DENTAL [address] [place] [address] Benedict Swift documented as of this encounter Procedures Procedure Name Priority Date/Time Associated Diagnosis Comments BI MAMMOGRAM SCREENING TOMOSYNTHESIS BILATERAL Routine 08/01/2024 9:30 AM EDT documented in this encounter Results * BI Mammogram Screening Tomosynthesis Bilateral (08/01/2024 9:30 AM EDT) Anatomical Region Laterality Modality Breast Bilateral Mammography 08/01/2024 9:30 AM EDT Narrative 08/19/2024 10:41 PM EDT [facility] [address] [place] [address] Mammography Report Signed Patient: Elda Vogt MR#: [id number] : 1940 Acct:[id number] Age/Sex: 83 / F ADM Date: 08/01/24 Loc: RAJENDRA Attending Dr: Douglas Swift MD Ordering Physician: Douglas Swift MD Results: 1 Negative Date of Service: 08/01/24 Follow Up: 1 Year From Orig inal Mammogram Procedure(s): MM tomosynthesis screening BI Accession Number(s): [id number] cc: Douglas Swift MD EXAMINATION: MM SCREENING [...] in OV> 08/19/242238 DD/ 9 TD/TT: 08/01/24944 Sales Product Manager: Procedure Note Donotuseinterpreter, Image - 08/19/2024 [facility] [address] [place] [address] Mammography Report Signed Patient: Elda Vogt [facility]#: [id number] : 2Acct:[id number] Age/Sex: 83 / FADM Date: 08/01/24 Loc: HO.MAMMO Attending Dr: Douglas Siwft MD Ordering Physician: Douglas Swift MDResults: 1 Negative Date of Service: 08/01/24Follow Up: 1 Year From Orig inal Mammogram Procedure(s): MM tomosynthesis screening BI Accession Number(s): [id number] cc: Beauzile,Thevenin C MD EXAMINATION: MM SCREENING DIGITAL BREAST TOMOSYNTHESIS, [...] Nelia Guardado DO in OV> 08/19/249 DD/ 0930 TD/TT: 08/01/24 0945 Sales Product Manager: Douglas Swift MD IMG BI PROCEDURES Edited Re sult - Final documented in this encounter Visit Diagnoses Diagnosis Benign hypertension- Primary Essential hypertension, benign documented in this encounter Additional Health Concerns Assessment Noted Time PHQ-9 Depression Total Score: 1 04/19/20 23 10:42 AM EDT documented as of this encounter Care Teams Flight Attendant Relationship Specialty Start Date End Date Douglas Swift MD [address] [place] [address] PCP - General Internal Medicine 02/26/15 documented as of this encounter
--- OUTSIDE RECORDS SUMMARY | 2025-08-31 09:05 | XMS_ITS | Encounter Summary ---
Author Organization [employer] Address [address] [place] [address] 7 [place] [address] Care Team Providers Care Licensed Mortician Name Role Phone Douglas Swift MD Primary Care Provider +1- [phone] Encounter Details Date Type Department Care Team (Latest Contact Info) Description 09/01/2022 Abstract [facility] CONVERSIONS Dental, Provider, DDS Social History Tobacco [...] 11:00 AM EDT Office Visit [facility] ADULT DENTAL [address] [place] [address] Char Patelricio [address] [place] [address] 01/08/2026 8:00 AM EST Office Visit [facility] ADULT DENTAL [address] [place] [address] Benedict Swift documented as of this encounter Visit Diagnoses Not on filedocumented in this encounter Care Teams Licensed Mortician Relationship Specialty Start Date End Date Douglas Swift MD [address] [place] [address] PCP - General Internal Medicine 02/26/15 documented as of this encounter
--- OUTSIDE RECORDS SUMMARY | 2025-08-31 09:05 | XMS_ITS | Encounter Summary ---
Author Organization [employer] Address [address] [place] [address] 7 [place] [address] Care Team Providers Care Continuous Mining Operator Name Role Phone Douglas Swift MD Primary Care Provider [phone] Encounter Details Date Type Department Care Team (Latest Contact Info) Description 07/25/2019 Abstract [facility] CONVERSIONS Dental, Provider, DDS Social History Tobacco [...] 09/12/2025 11:00 AM EDT [facility] [address] [place] [address] JorgeChar ospinaricio [address] [place] [address] 01/08/2026 8:00 AM EST Office Visit [facility] [address] [place] [address] Benedict Swift documented as of this encounter Visit Diagnoses Not on filedocumented in this encounter Care Teams Continuous Mining Operator Relationship Specialty Start Date End Date Douglas Swift MD [address] [place] [address] PCP - General Internal Medicine 02/26/15 documented as of this encounter
--- OUTSIDE RECORDS SUMMARY | 2025-08-31 09:05 | XMS_ITS | Encounter Summary ---
Author Organization [employer] Address [address] [facility] 7t [place] [address] Care Team Providers Care Refrigerator Repair Technician Name Role Phone Douglas Swift MD Primary Care Provider [phone] Reason for Visit * Reason Comments Med Refill Encounter Details Date Type Department Care Team ([facility] st Contact Info) Description 08/05/2025 Refill [facility] [address] [place], [place] [phone] Jessi Dangelo MD 505 [place], [place] [phone] Benign hypertension Social History Tobacco Use Types [...] [facility] ADULT DENTAL [address] [place] [address] Alcides Patel 505 [place] [address] 01/08/2026 8:00 AM EST Office Visit [facility] ADULT DENTAL [address] [place] [address] Benedict Swift documented as of this encounter Visit Diagnoses Diagnosis Benign hypertension Essential hypertension, benign documented in this encounter Additional Health Concerns Assessment Noted Time PHQ-9 Depression Total Score: 1 04/19/20 23 10:42 AM EDT documented as of this encounter Care Teams Refrigerator Repair Technician Relationship Specialty Start Date End Date Douglas Swift MD [address] [place] [address] PCP - General Internal Medicine 02/26/15 documented as of this encounter
--- OUTSIDE RECORDS SUMMARY | 2025-08-31 09:05 | XMS_ITS | Encounter Summary ---
Author Organization [employer] Address [address] [facility] 7t [place] [address] Care Team Providers Care Outpatient Program Coordinator Name Role Phone Douglas Swift MD Primary Care Provider [phone] Encounter Details Date Type Department Care Team ([facility] st Contact Info) Description 06/06/2024 Orders Only [facility] [address] [place], [place] [phone] Douglas Swift MD [address] [place], [place] [phone] Irritable bladder (Primary Dx) Social History Tobacco [...] 11:00 AM EDT Office Visit [facility] ADULT DENT[facility] [address] [place] [address] Alcides Patel 505 [place] [address] 01/08/2026 8:00 AM EST Office Visit [facility] ADULT DENTAL [address] [place] [address] Benedict Swift documented as of this encounter Procedures Procedure Name Priority Date/Time Associated Diagnosis Comments URINALYSIS, COMPLETE Routine 06/07/2024 8:41 AM EDT Irritable bladder documented in this encounter Results * (ABNORMAL) Urinalysis Complete (06/07/2024 8:41 AM EDT) Color Urine Yellow [facility] Appearance Urine Clear [facility] PH 6.0 5.0 - 9.0 [facility] Glucose Urine UA Negative Negative mg/dL [facility] Urine Blood Negative Negative [facility] Specific [place] - Urine 1.015 1.005 - 1.025 [facility] Urine Protein Negative Neg-Trace mg/dL [facility] Urine Ketones Negative Negative mg/dL [facility] Nitrite Urine Negative Negative [facility] Leukocyte Esterase Urine Trace(A) Negative [facility] RBC Urine 0-2 0 - 2 /HPF [facility] Urine WBC 0-5 0 - 5 /HPF [facility] Urine Squamous Epithelial Cell 0-2 0 - 2 /HPF [facility] Urine Bacteria None Seen None Seen [facility] Hyaline Casts, Urine 0-2 0 - 2 /LPF [facility] Urine (Urine, Random) 06/07/2024 8:41 AM EDT 06/07/2024 1:55 PM EDT Douglas Swift MD LAB URINE ORDERABLES Final Result [facility] [address] [place] [address] [phone] documented in this encounter Visit Diagnoses Diagnosis Irritable bladder- Primary Other specified disorder of bladder documented in this encounter Additional Health Concerns Assessment Noted Time PHQ-9 Depression Total Score: 1 04/19/20 23 10:42 AM EDT documented as of this encounter Care Teams Outpatient Program Coordinator Relationship Specialty Start Date End Date Douglas Swift MD [address] [place] [phone] PCP - General Internal Medicine 02/26/15 documented as of this encounter
--- OUTSIDE RECORDS SUMMARY | 2025-08-31 09:05 | XMS_ITS | Encounter Summary ---
Author Organization [employer] Address [address] [facility] 7 [place] [address] Care Team Providers Care Explosive Ordnance Handler Name Role Phone Douglas Swift MD Primary Care Provider [phone] Reason for Visit * Reason Onset Date Comments Hospital Follow-up 01/19/2023 Encounter Details Date Type Department Care Team (Late st Contact Info) Description 01/19/2023 Telephone [facility] MEDICINE [address] [place], [place] [phone] Douglas Swift MD 505 [place], [place] [phone] Hospital Follow-up Social History Tobacco Use Types [...] line. Pt reports getting a call from [facility]: The information below was reported to Pt. -- Please call. Labs reviewed: very high cholesterol level. Ms Elda Vogt did not tolerate statins in the past. Needs to be on a strict low chol diet. Very low Vit D . I will prescribe 8 weeks of Vit D 16849 units to take once a week. Pt responded to message, has already obtained Vit D prescription and will start. Pt will try to reduce cholesterol in diet. No further questions offered. * Telephone Encounter - Tad Milan - 01/19/2023 2:29 PM EST Patient calling for HDF follow up appointment. Patient [facility] at [facility] and discharged on 01/14/2023. Patient advised will forward to team nurse for follow up and appointment scheduling. documented in this encounter Plan of Treatment Upcoming Encounters Date Type Department Care Team (Late st Contact Info) Description 09/12/2025 11:00 AM EDT Office Visit [facility] ADULT DENTAL [address] [place] [address] Alcides Patel [address] [place] [address] 01/08/2026 8:00 AM EST Office Visit [facility] ADULT DENTAL [address] [place] [address] Benedict Swift documented as of this encounter Visit Diagnoses Diagnosis Overactive bladder- Primary Hypertonicity of bladder documented in this encounter Care Teams Explosive Ordnance Handler Relationship Specialty Start Date End Date Douglas Swift MD [address] [place] [address] PCP - General Internal Medicine 02/26/15 documented as of this encounter
--- OUTSIDE RECORDS SUMMARY | 2025-08-31 09:05 | XMS_ITS | Clinical Summary ---
Author Organization [facility] Address [address] [place] [phone] Phone Care Team Providers Care Pierce And Shave Press Operator Name Role Phone Douglas Swift MD Primary Care Provider [phone] Surgical History Surgery Date Site/Laterality Comments TUBAL LIGATION PROCEDURE: HISTORICAL TUBAL LIGATION OTHER SURGICAL HISTORY 07/17/2014 PROCEDURE: [place] BLEPHAROPLASTY UPPER EYELID OTHER SURGICAL HISTORY 07/2020 PROCEDURE: PULMONOLOGY BRONCHOSCOPY OTHER SURGICAL HISTORY 09/27/2020 PROCEDURE: [place] INSTLJ VIA CHEST TUBE/CATH AGENT FOR PLEURODESIS OTHER SURGICAL HISTORY 09/17/2020 Right PROCEDURE: [place] THORACOSCOPY W/LOBECTOMY SINGLE LOBE; COMMENT: RUL lobectomy Medical History Medical History Date Comments History of pneumonia DX:History of pneumonia Essential (primary) hypertension DX:Essential (primary) hypertension Mycobacterial disease DX:Mycobac terial disease Osteopenia DX:Osteopenia 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 (CMS/HCC V24, CMS/HCC V28) 08/2020 DX:Primary cancer of r ight upper lobe of lung (HCC) Seasonal allergies DX:Seasonal [...] 09/25/2024 9:59 AM EDT Plan of Treatment Upcoming Encounters Date Type Department Care Team (Late st Contact Info) Description 09/06/2025 9:30 AM EDT Appointment [facility] CT Scan [address] [place] [phone] 09/12/2025 1:45 PM EDT Office Visit [facility] [place] [address] [facility] [address] [place] [phone] Dao Lomeli, [place] [address] [facility] [address] [place] [address] Health Maintenance Due Date Last Done Comments COVID-19 Vaccine (3 - Moderna risk series) 02/26/2021 01/29/2021, 12/28/2020 Falls Risk Assessment 11/01/2022 Osteoporosis Screening (Bone Density Screening) 11/01/2022 Social Influencers of Health Screening 11/01/2022 Depression Screening 11/29/2024 Influenza Vaccine (#1) 2025 , 08/16/2023, 08/31/2022, Additional history exists Hypertension/CHF/CAD Annual BMP Blood Test 08/07/2025 08/07/2024, 08/03/2024 Cholesterol Screening (Lipid Panel) 01/28/2028 01/27/2023 DTaP,Tdap,and Td Vaccines (3 - Td or Tdap) 06/25/2035 06/25/2025, 10/11/2015 Pneumococcal Vaccine: 50+ Years Completed 08/25/2019, 08/27/2017, 10/11/2015 Zoster Vaccines Completed 05/26/2024, 09/11/2022, 06/20/2013 RSV Immunization Adult Patients Completed 06/07/2024 HIB Vaccines Aged Out No [...] on patient's age to complete this topic Insurance [place] [facility] Member Subscriber Plan / Payer (Ef fective 2019-Present) Name:Elda Oliveros Relation to Subscriber:Self Name:Elda Oliveros Payer ID:[id number] Group ID:[id number] Type:Not on file Address: [address] [place] [id number] Advance Directives Documents on File Type Date Recorded Patient Rib Bender Expl anation Health Care Decision (hx) 09/20/2020 [...] (hx) 09/17/2020 AD WHEATLEY DIRECTIVE Care Teams Pierce And Shave Press Operator Relationship Specialty Start Date End Date Douglas Swift MD [address] [place] [address] PCP - General 03/27/24
--- OUTSIDE RECORDS SUMMARY | 2025-08-31 09:05 | XMS_ITS | Encounter Summary ---
Author Organization [employer] Address [address] [facility] 7t [place] [address] Care Team Providers Care Hog Cooler Name Role Phone Douglas Swift MD Primary Care Provider [phone]- [phone] Encounter Details Date Type Department Care Team (Late st Contact Info) Description 01/25/2025 Orders Only [facility] MEDICINE [address] [place], [place] [phone] Douglas Swift MD [address] [place], [place] [phone] Social History Tobacco Use Types Packs/Day Years [...] Description 09/12/2025 11:00 AM EDT Office Visit [facility] ADULT DENTAL [address] [place] [address] Alcides Patel 505 [place] [address] 01/08/2026 8:00 AM EST Office Visit [facility] ADULT DENTAL [address] [place] [address] Benedict Swift documented as of this encounter Visit Diagnoses Not on filedocumented in this encounter Additional Health Concerns Assessment Noted Time PHQ-9 Depression Total Score: 1 04/19/20 23 10:42 AM EDT documented as of this encounter Care Teams Hog Cooler Relationship Specialty Start Date End Date Douglas Swift MD [address] [place] [address] PCP - General Internal Medicine 02/26/15 documented as of this encounter
--- OUTSIDE RECORDS SUMMARY | 2025-08-31 09:05 | XMS_ITS | Encounter Summary ---
Author Organization [employer] Address [address] [place] [address] 7 [place] [address] Care Team Providers Care Wooden Box Maker Name Role Phone Douglas Swift MD Primary Care Provider [phone]- [phone] Encounter Details Date Type Department Care Team (Latest Contact Info) Description 04/01/2021 Abstract [facility] CONVERSIONS Dental, Provider, DDS Social History [...] Description 09/12/2025 11:00 AM EDT Office Visit [facility] ADULT DENTAL [address] [place] [address] Jorge Alcides 505 [place] [address] 01/08/2026 8:00 AM EST Office Visit [facility] ADULT DENTAL [address] [place] [address] Benedict Swift documented as of this encounter Visit Diagnoses Not on filedocumented in this encounter Care Teams Wooden Box Maker Relationship Specialty Start Date End Date Douglas Swift MD [address] [place] [address] PCP - General Internal Medicine 02/26/15 documented as of this encounter
--- OUTSIDE RECORDS SUMMARY | 2025-08-31 09:05 | XMS_ITS | Encounter Summary ---
Author Organization [employer] Address [address] [facility] 7t [place] [address] Care Team Providers Care Brick Paving Checker Name Role Phone Douglas Swift MD Primary Care Provider [phone]- [phone] Reason for Visit * Reason Comments Med Refill Encounter Details Date Type Department Care Team ([facility] st Contact Info) Description 03/05/2025 Refill C [facility] [address] [place], [place] [phone] Douglas Swift MD [address] [place], [place] [phone] Chronic constipation Social History Tobacco Use Types Packs/Day Years [...] the past 12 months, has t he [employer] gas, oil or water company threatened to [...] 11:00 AM EDT Office Visit [facility] ADULT D[facility] [address] [place] [address] Alcides Patel 505 [place] [address] 01/08/2026 8:00 AM EST Office Visit [facility] ADULT DENT[facility] [address] [place] [address] Benedict Swift documented as of this encounter Visit Diagnoses Diagnosis Chronic constipation Unspecified constipation documented in this encounter Additional Health Concerns Assessment Noted Time PHQ-9 Depression Total Score: 1 04/19/20 23 10:42 AM EDT documented as of this encounter Care Teams Brick Paving Checker Relationship Specialty Start Date End Date Douglas Swift MD [address] [place] [address] PCP - General Internal Medicine 02/26/15 documented as of this encounter
--- OUTSIDE RECORDS SUMMARY | 2025-08-31 09:05 | XMS_ITS | Encounter Summary ---
Author Organization [employer] Address [address] [facility] 7t [place] [address] Care Team Providers Care Vortex Operator Name Role Phone Douglas Swift MD Primary Care Provider [phone] Reason for Visit * Reason Comments Med Refill Encounter Details Date Type Department Care Team ([facility] st Contact Info) Description 08/07/2025 Refill C [facility] [address] [place], [place] [phone] Jessi Dangelo MD [address] [place], [place] [phone] Benign hypertension Social History Tobacco Use Types [...] Office Visit [facility] ADULT DENTAL [address] [place] [address] Alcides Patel [address] [place] [address] 01/08/2026 8:00 AM EST Office Visit [facility] ADULT DENT[facility] [address] [place] [address] Benedict Swift documented as of this encounter Visit Diagnoses Diagnosis Benign hypertension Essential hypertension, benign documented in this encounter Additional Health Concerns Assessment Noted Time PHQ-9 Depression Total Score: 1 04/19/20 23 10:42 AM EDT documented as of this encounter Care Teams Vortex Operator Relationship Specialty Start Date End Date Douglas Swift MD [address] [place] [address] PCP - General Internal Medicine 02/26/15 documented as of this encounter
--- OUTSIDE RECORDS SUMMARY | 2025-08-31 09:05 | XMS_ITS | Encounter Summary ---
Author Organization [employer] Address [address] [facility] 7t [place] [address] Care Team Providers Care Baby Registry Sales Consultant Name Role Phone Douglas Swift MD Primary Care Provider [phone]- [phone] Encounter Details Date Type Department Care Team ([facility] st Contact Info) Description 08/04/2024 Orders Only [facility] MED & PEDS [address] [place], [place] [phone] Douglas Swift MD [address] [place], [place] [phone] Hyponatremia (Primary Dx) Social History Tobacco Use [...] 11:00 AM EDT Office Visit [facility] ADULT DENTAL [address] [place], [place] [phone] Char Patelricio [address] [place] [address] 01/08/2026 8:00 AM EST Office Visit [facility] ADULT DENTAL [address] [place], [place] [phone] Benedict Swift documented as of this encounter [...] AM EDT) Sodium Urine Random 43.0 mmol/L [facility] Urine Urine specimen obtained by clean catch procedure / Unknown 08/07/2024 8:10 AM EDT 08/07/2024 2:24 PM EDT us Douglas Swift MD LAB BLOOD ORDERABLES Final Result [facility] [address] [place] [address] [phone] * Osmolality, Serum (08/07/2024 8:08 AM EDT) Osmolality (Serum) 291 281 - 305 mosm/kg [facility] Blood Venous blood specimen / Unknown 08/07/2024 8:08 AM EDT 08/07/2024 2:26 PM EDT us Douglas Swift MD LAB BLOOD ORDERABLES Final Result Performing Organization Address [facility] Co de Phone Number [facility] [address] [place] [phone] * Basic Metabolic Panel (08/07/2024 8:08 AM EDT) Sodium 139 135 - 145 mmol/L [facility] Potassium 4.9 3.3 - 5.1 mmol/L [facility] Chloride 103 96 - 108 mmol/L [facility] Carbon Dioxide 27 22 - 29 mmol/L [facility] Anion Gap 14 12 - 20 [facility] Urea Nitrogen (BUN) 10 9 - 16 mg/dL [facility] Creatinine, Serum 0.73 0.5 - 1.4 mg/dL [facility] Estimated Glomerular Filt Rate >60 [facility] Comment:NOTE: For -Am erican individuals, multiply the result by 1.210.Chronic Kidney Disease: Estimated GFR < 60 mL/min/1.47n2Dxudhw Kidney Disease: Estimated GFR < 15 mL/min/1.73m2 Glucose 100 60 - 115 mg/dL [facility] Calcium 10.0 8.4 - 10.2 mg/dL [facility] Blood Venous blood specimen / Unknown 08/07/2024 8:08 AM EDT 08/07/2024 2:26 PM EDT us Douglas Swift MD LAB BLOOD ORDERABLES Final Result Performing Organization Address City/[facility]/ZIP Co de Phone Number [facility] [address] [place] [phone] documented in this encounter Visit Diagnoses Diagnosis Hyponatremia- Primary Hyposmolality and/or hyponatremia documented in this encounter Additional Health Concerns Assessment Noted Time PHQ-9 Depression Total Score: 1 04/19/20 23 10:42 AM EDT documented as of this encounter Care Teams Baby Registry Sales Consultant Relationship Specialty Start Date End Date Douglas Swift MD [address] [place] [phone] PCP - General Internal Medicine 02/26/15 documented as of this encounter
== END 2025-08-31 08:43 | disposition home or self-care (01) ==
LOC: HO.MAMMO 08:42
PROVIDERS: PCP Internal Medicine; Visit Provider Internal Medicine
DX: Z12.31 Encounter for screening mammogram for malignant neoplasm of breast (principal)
CPT/HCPCS: 77063; 77067

== ENCOUNTER → 2025-08-31 09:15 | Outpatient (BNV) | payer OTHER, SELFPAY | PROVIDERS: PCP Internal Medicine; Visit Provider Internal Medicine | DX: Z12.31 Encounter for screening mammogram for malignant neoplasm of breast (principal) | CPT/HCPCS: 77063; 77067 ==